=== PATIENT | male | born 1980 | race Caucasian/White ===

== ENCOUNTER 2016-11-30 09:30 | Emergency (ER) | payer MEDICARE, MEDICAID ==
[2016-11-30 09:50] VITALS: BP 96/91
--- NOTE | 2016-11-30 10:00 | UC ---
Skin Complaint HPI - HPI Summary HPI Summary: CARE PROVIDERS AT [facility] NOTICED ORAL SORES THIS MORNING. NO KNOWN FEVER OR OTHER SYMPTOMS. PT HAS LIMITED VERBAL AND COGNITIVE ABILITIES. STATES HIS MOUTH HURTS BUT NO FURTHER DETAILS. 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 [facility] Onset/Duration: Sudden Onset, Lasting Hours, Still Present Timing: Constant Onset Severity: Moderate Current Severity: Moderate Pain Scale Used: UNABLE DUE TO PT STATUS Location: Other - MOUTH/CHIN Character: Pain, Redness, Raised Aggravating: Touch Alleviating: Nothing Associated Signs & Symptoms: Positive: Negative - Allergy/Home Medications Allergies/Adverse Reactions: Allergies Allergy/AdvReac Type Severity Reaction Status Date / Time No Known Allergies Allergy Verified 11/30/16 09:51 Review of Systems Constitutional: Negative Skin: Other - ULCERATIONS ORAL MUCOSA Respiratory: Negative Cardiovascular: Negative Gastrointestinal: Negative All Other Systems Reviewed And Are Negative: Yes PMH/Surg Hx/FS Hx/Imm Hx - Additional Past Medical History Additional PMH: ADHD, DEVELOPMENTAL DELAY Endocrine History Of: Denies: Diabetes, Thyroid Disease Cardiovascular History Of: Reports: Hypertension Denies: Cardiac Disorders Respiratory History Of: Denies: COPD, Asthma GI/ History Of: Denies: Ulcer Psychological History Of: Reports: Depression - Surgical History Surgical History: Yes Surgery Procedure, Year, and Place: left foot - Family History Known Family History: Positive: Unknown - unattainable due to mental disability Family History: patient is unable to provide any past medical history due to his mental disability. - Social History Alcohol Use: None Substance Use Type: None Smoking Status (MU): Never Smoked Tobacco Physical Exam Triage Information Reviewed: Yes Appearance: Well-Appearing, No Pain Distress, Well-Nourished Vital Signs: Initial Vital Signs Temp 96 F 11/30/16 09:37 Pulse 92 11/30/16 09:37 Resp 18 11/30/16 09:37 BP 96/91 11/30/16 09:37 Pulse Ox 98 11/30/16 09:37 Vital Signs Reviewed: Yes Eyes: Positive: Conjunctiva Clear ENT: Positive: Hearing grossly normal Neck: Positive: Supple Respiratory: Positive: No respiratory distress, No accessory muscle use Cardiovascular: Positive: Pulses Normal Abdomen Description: Positive: Soft Musculoskeletal: Positive: No Edema Neurological: Positive: Alert Psychological: Positive: Other: - BEHAVIOR AT BASELINE Skin: Positive: significant lesion(s) - MULTIPLE SCATTERED WHITE BASED LESIONS ON BUCCAL/ORAL MUCOSA MEASURING ABOUT 5MM IN DIAMETER. CRUSTED 1CM LESION CHIN. Course/Dx - Course Course Of Treatment: SWAB SENT FOR HERPES CULTURE. VALTREX GIVEN - Differential Diagnoses - Skin Complaint Differential Diagnoses: Other - APHTHOUS ULCERS - Diagnoses Provider Diagnoses: HERPES LABIALIS Discharge - Discharge Plan Condition: Stable Disposition: HOME Prescriptions: ValACYclovir (*) [Valtrex 1 GM(*)] 2 gm PO BID #4 tab Patient Education Materials: Oral Herpes Simplex Virus Infections (ED) Referrals: Juan J FAJARDO,Steven Mcmullen [Primary Care Provider] - If Needed Additional Instructions: SPECIMEN SENT FOR VIRAL CULTURE. PLEASE TAKE MEDICINE PRESCRIBED 2 PILLS THIS MORNING AND 2 PILLS TONIGHT. FOLLOW-UP WITH YOUR PCP IF NEEDED.
== END 2016-11-30 10:20 | disposition home or self-care (01) ==
LOC: UCEAST 09:30
DX: B00.1 Herpesviral vesicular dermatitis (principal)
CPT/HCPCS: 87529; 99212; G0463

== ENCOUNTER 2016-12-21 14:30 | Emergency (ER) | payer MEDICARE, MEDICAID ==
[2016-12-21 14:46] VITALS: BP 134/89
[2016-12-21 15:25] LABS: Hematocrit 36 % (42-52); Hemoglobin 11.7 g/dl (14.0-18.0); Mean Corpuscular HGB Conc 32 g/dl (31-36); Mean Corpuscular Hemoglobin 26 pg (27-31); Mean Corpuscular Volume 81 fL (80-94); Mean Platelet Volume 7 um3 (7.4-10.4); Red Blood Count 4.51 10^6/ul (4.0-5.4); Red Cell Distribution Width 14 % (10.5-15); White Blood Count 13.1 10^3/ul (3.5-10.8)
[2016-12-21 15:41] LABS: ALT 44 U/L (7-52); AST 84 U/L (13-39); Albumin 3.9 g/dL (3.2-5.2); Alkaline Phosphatase 51 U/L (34-104); Anion Gap 8 mmol/L (2-11); Blood Urea Nitrogen 17 mg/dL (6-24); CO2 Carbon Dioxide 25 mmol/L (22-32); Calcium 9.2 mg/dL (8.6-10.3); Chloride 101 mmol/L (101-111); EGFR African American 139.5 (>60); EGFR Non-African American 108.4 (>60); Globulin 2.8 g/dL (2-4); Glucose 101 mg/dL (70-100); Potassium 3.8 mmol/L (3.5-5.0); Sodium 134 mmol/L (133-145); Total Protein 6.7 g/dL (6.4-8.9)
[2016-12-21 16:07] LABS: Acetaminophen < 15 mcg/mL; Alcohol < 10 mg/dL (<10); Salicylate < 2.50 mg/dL (<30)
[2016-12-21 16:15] LABS: TSH (Thyroid Stimulating Horm) 0.21 mcIU/mL (0.34-5.60)
[2016-12-21] MEDS ORDERED: NS 0.9% 1000 ML* 1,000 ML IV ONE (16:52)
--- NOTE | 2016-12-21 18:35 | RAD ---
INDICATION: Decreased appetite COMPARISON: None TECHNIQUE: Supine and sitting views of the abdomen were obtained. FINDINGS: The small bowel and colon appear nondistended. No free intraperitoneal air is seen. No grossly abnormal or pathologic appearing calcifications are noted. There is mild dextroconvex curvature of the lower thoracic and upper lumbar spine. IMPRESSION: No radiographically apparent acute abnormality of the abdomen.
--- NOTE | 2016-12-21 18:37 | RAD ---
INDICATION: Decreased appetite COMPARISON: Similar chest x-ray dated November 04, 2016 TECHNIQUE: PA and lateral views of the chest were obtained. FINDINGS: Evaluation of the lungs is limited due to poor respiratory effort. The heart and mediastinum are normal in size and contour. The lungs are grossly clear. There is no evidence of large pleural effusion. There is no radiographic evidence of free air beneath the diaphragm IMPRESSION: No radiographic evidence of acute cardiopulmonary disease.
[2016-12-21 18:49] LABS: Urine Bacteria Absent (Absent); Urine Bilirubin Negative (Negative); Urine Glucose 1+(50 mg/dL) (Negative); Urine Nitrite Negative (Negative)
--- NOTE | 2016-12-21 19:07 | ED ---
Victoria Bob Michael, scribed for Ranjit Alvarenga MD on 12/21/16 at 1501 . Altered Mental Status - HPI Summary HPI Summary: 36 y/o male was BIBA to the ED from a residential due to the fact that the pt has refused to eat for the past 3 days. The facility has request that the pt has a medical evaluation because he has not eaten in the last 3 days. In the ED , he has asked for fluids and is currently drinking soda. The PMHx is significant for MR. The HPI was limited due to AMS. Level 5 Caveat - History Of Current Complaint Chief Complaint: EDGeneral Stated Complaint: MHE Time Seen by Provider: 12/21/16 14:49 Hx Obtained From: EMS, Medical Records Hx From Patient Unobtainable Due To: Other - MR-level 5 caveat Timing: Constant, Lasting Days Severity Initially: Mild Severity Currently: Mild Aggravating Factor(s): Unknown Alleviating Factor(s): Nothing Associated Signs And Symptoms: Negative: Negative - refusal to eat for 3 days, Fever - Allergies/Home Medications Allergies/Adverse Reactions: Allergies Allergy/AdvReac Type Severity Reaction Status Date / Time No Known Allergies Allergy Verified 11/30/16 09:51 PMH/Surg Hx/FS Hx/Imm Hx Endocrine/Hematology History: Denies: Hx Diabetes, Hx Thyroid Disease Cardiovascular History: Reports: Hx Hypertension Respiratory History: Denies: Hx Asthma, Hx Chronic Obstructive Pulmonary Disease (COPD) GI History: Denies: Hx Ulcer Neurological History: Reports: Hx Developmental Delay, Other Neuro Impairments/ Disorders - moderate mental delay Psychiatric History: Reports: Hx Attention Deficit Hyperactivity Disorder, Hx Depression - Surgical History Surgery Procedure, Year, and Place: left foot - Immunization History Date of Tetanus Vaccine: up to date per pt caregiver Infectious Disease History: No Infectious Disease History: Denies: Hx Clostridium Difficile, Hx Hepatitis, Hx Human Immunodeficiency Virus (HIV), Hx of Known/Suspected MRSA, Hx Shingles, Hx Tuberculosis, History Other Infectious Disease, Traveled Outside the [place] in Last 30 Days - Family History Known Family History: Positive: Unknown - unattainable due to mental disability Family History: patient is unable to provide any past medical history due to his mental disability. - Social History Occupation: Disabled Lives: Senior Care Alcohol Use: None Substance Use Type: Reports: None Smoking Status (MU): Never Smoked Tobacco Review of Systems - ROS Summary Review of Systems Summary: Limited due to MR and level 5 caveat Negative: Fever Positive: Other - refusal to eat for 3 days All Other Systems Reviewed And Are Negative: No Physical Exam - Summary Physical Exam Summary: Vital signs: reviewed General: Patient is comfortable lying in stretcher. He has hx of MR and he talks very loud. HEENT: within normal limits Lungs: CTA B/L CVS: S1 & S2 present. No murmurs appreciated. ABDOMEN: Soft, non-tender. No signs of distention. No rebound no guarding, and no masses palpated. Bowel sounds are normal. EXTREMITIES: FROM in all major joints, no edema, no cyanosis or clubbing. NEURO: Alert and oriented x 3. No acute neurological deficits. Speech is normal and follows commands. SKIN: Dry and warm Triage Information Reviewed: Yes Vital Signs On Initial Exam: Initial Vitals Temp Pulse Resp BP Pulse Ox 98.0 F 117 20 134/89 100 12/21/16 14:42 12/21/16 14:42 12/21/16 14:42 12/21/16 14:42 12/21/16 14:42 Vital Signs Reviewed: Yes - Henry Coma Scale Coma Scale Total: 15 Diagnostics - Vital Signs Vital Signs Temp Pulse Resp BP Pulse Ox 12/21/16 14:42 98.0 F 117 20 134/89 100 - Laboratory Lab Results: Lab Results 12/21/16 12/21/16 Range/Units 15:15 15:15 WBC 13.1 H (3.5-10.8) 10^3/ul RBC 4.51 (4.0-5.4) 10^6/ul Hgb 11.7 L (14.0-18.0) g/dl Hct 36 L (42-52) % MCV 81 (80-94) fL MCH 26 L (27-31) pg MCHC 32 (31-36) g/dl RDW 14 (10.5-15) % Plt Count 366 (150-450) 10^3/ul MPV 7 L (7.4-10.4) um3 Neut % (Auto) 81.8 (38-83) % Lymph % (Auto) 8.5 L (25-47) % Rincon % (Auto) 8.6 (1-9) % Eos % (Auto) 0.1 (0-6) % Baso % (Auto) 1.0 (0-2) % Absolute Neuts (auto) 10.7 H (1.5-7.7) 10^3/ul Absolute Lymphs (auto) 1.1 (1.0-4.8) 10^3/ul Absolute Monos (auto) 1.1 H (0-0.8) 10^3/ul Absolute Eos (auto) 0 (0-0.6) 10^3/ul Absolute Basos (auto) 0.1 (0-0.2) 10^3/ul Absolute Nucleated RBC 0 10^3/ul Nucleated RBC % 0 Sodium 134 (133-145) mmol/L Potassium 3.8 (3.5-5.0) mmol/L Chloride 101 (101-111) mmol/L Carbon Dioxide 25 (22-32) mmol/L Anion Gap 8 (2-11) mmol/L BUN 17 (6-24) mg/dL Creatinine 0.81 (0.67-1.17) mg/dL Est GFR ( Amer) 139.5 (>60) Est GFR (Non-Af Amer) 108.4 (>60) BUN/Creatinine Ratio 21.0 H (8-20) Glucose 101 H (70-100) mg/dL Calcium 9.2 (8.6-10.3) mg/dL Total Bilirubin 0.60 (0.2-1.0) mg/dL AST 84 H (13-39) U/L ALT 44 (7-52) U/L Alkaline Phosphatase 51 (34-104) U/L Total Protein 6.7 (6.4-8.9) g/dL Albumin 3.9 (3.2-5.2) g/dL Globulin 2.8 (2-4) g/dL Albumin/Globulin Ratio 1.4 (1-3) TSH 0.21 L (0.34-5.60) mcIU/mL Salicylates < 2.50 (<30) mg/dL Acetaminophen < 15 mcg/mL Serum Alcohol < 10 (<10) mg/dL Result Diagrams: 12/21/16 15:15 12/21/16 15:15 Lab Statement: Any lab studies that have been ordered have been reviewed, and results considered in the medical decision making process. - Radiology ABD XR Xray Interpretation: No Acute Changes - IMPRESSION: No radiographically apparent acute abnormality of the abd Radiology Interpretation Completed By: Radiologist CXR Xray Interpretation: No Acute Changes Radiology Interpretation Completed By: Radiologist - IMPRESSION: No radiographic evidence of acute cardiopulmonary dz. Altered Mental Statu Course/Dx - Course Assessment/Plan: 36 y/o male was BIBA to the ED from a residential due to the fact that the pt has refused to eat for the past 3 days. The facility has request that the pt has a medical evaluation because he has not eaten in the last 3 days. In the ED, he has asked for fluids and is currently drinking soda. The PMHx is significant for MR. Blood work wnl except for slight increase in WBCs of 13.1 w/o bands, glucose 101. UA was contaminated therefore we will send for urine cultures. PMD will f/u cultures. CXR: No acute cardiopulmonary pathology. Abdominal X ray impression: No radiographic abnormality seen. MHE evaluation unable to perform since MHE butt welder Liza Han was unable to perform since patient has no capacity. Patient will be discharged home w f/u pf PMD. Patient is to return to the ED if he develops fever, nausea or vomiting or pain. Patient is hemodynamically stable and at his base line. - Diagnoses Differential Diagnosis/HQI/PQRI: Other - Dehydration, Discharge Diagnoses: Decreased appetite - Provider Notifications Discussed Care Of Patient With: Spoke with Nessa Han, unable to do MHE due to pt 's lack of capacity due to MR Time Discussed With Above Provider: 18:52 Discharge - Discharge Plan Condition: Stable Disposition: HOME Patient Education Materials: Failure to Thrive (ED) The documentation as recorded by the Victoria shepard Michael accurately reflects the service I personally performed and the decisions made by , Ranjit Alvarenga MD.
[2016-12-21 19:36] LABS: Benzodiazepine Urine Screen None Detected (None Detect)
== END 2016-12-21 19:30 | disposition home or self-care (01) ==
LOC: ED 14:30
DX: R63.0 Anorexia (principal)
CPT/HCPCS: 36415; 71020; 74020; 80053; 80307; 80320; 80329; 81003; 81015; 84443; 85025; 87086; 99282; G0480

== ENCOUNTER 2016-12-25 16:29 | Emergency (ER) | payer MEDICARE, MEDICAID ==
[2016-12-25] MEDS ORDERED: Haloperidol INJ IV/IM* 5 MG/ML AMP IM ONE (16:44)
[2016-12-25] MEDS ORDERED: LORazepam INJ* 2 MG/ML 1 ML VIAL IV PUSH ONE (16:44)
[2016-12-25] MEDS ORDERED: diPHENhydraMINE IV* 50 MG/ML 1 ml VIAL (BENADRYL) IM ONE (16:44)
[2016-12-25] MEDS ORDERED: LORazepam INJ* 2 MG/ML 1 ML VIAL IM ONE (17:26)
--- NOTE | 2016-12-25 17:50 | RAD ---
INDICATION: Altered mental status COMPARISON: None TECHNIQUE: Noncontrast axial source images were acquired from the skull base to the vertex. The examination is limited due to motion artifact. Images were repeated. FINDINGS: Ventricles/sulci: The ventricles and cisterns are normal in size and configuration for age. Brain parenchyma: There is no focal parenchymal finding, evidence of intracranial mass, or intracranial mass effect. Intracranial hemorrhage:None. Extra-axial spaces: There are no abnormal extra axial fluid collections or evidence of extra-axial mass. Calvarium: There is no calvarial fracture or other calvarial abnormality. Scalp: There is no evidence of scalp or extracalvarial soft tissue abnormality. Paranasal sinuses/mastoid: There is extensive paranasal sinus disease with near complete opacification of the visualized ethmoid and maxillary air cells. There is sphenoid sinus disease with an air-fluid level. There is frontal sinus disease. There may be nasal polyposis. Suggest follow-up CT imaging of the paranasal sinuses and/or ENT referral as indicated if this represents a previously been diagnosed finding. Other: None. IMPRESSION: No acute intracranial findings. Acute and chronic sinusitis with possible nasal polyps (see above).
[2016-12-25 19:35] LABS: Hematocrit 32 % (42-52); Hemoglobin 10.8 g/dl (14.0-18.0); Mean Corpuscular HGB Conc 34 g/dl (31-36); Mean Corpuscular Hemoglobin 27 pg (27-31); Mean Corpuscular Volume 80 fL (80-94); Mean Platelet Volume 7 um3 (7.4-10.4); Red Blood Count 4.05 10^6/ul (4.0-5.4); Red Cell Distribution Width 14 % (10.5-15); White Blood Count 8.4 10^3/ul (3.5-10.8)
[2016-12-25 19:52] LABS: Albumin 3.5 g/dL (3.2-5.2); Calcium 9.1 mg/dL (8.6-10.3); EGFR African American 189.9 (>60); EGFR Non-African American 147.6 (>60); Globulin 2.7 g/dL (2-4); Potassium 3.9 mmol/L (3.5-5.0); Total Bilirubin 0.4 mg/dL (0.2-1.0); Total Protein 6.2 g/dL (6.4-8.9)
[2016-12-25] MEDS ORDERED: NS 0.9% 1000 ML* 2,000 ML IV ONE (21:30)
[2016-12-26 08:30] VITALS: BP 123/76
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
== END 2016-12-26 08:15 | disposition home or self-care (01) ==
LOC: ED 16:29
DX: F39 Unspecified mood [affective] disorder (principal); J32.9 Chronic sinusitis, unspecified; R63.1 Polydipsia; I10 Essential (primary) hypertension; R62.50 Unspecified lack of expected normal physiological development in childhood; F90.9 Attention-deficit hyperactivity disorder, unspecified type
CPT/HCPCS: 36415; 70450; 80053; 83605; 85025; 96360; 96372; 96374; 96375; 99283; J1200; J1630; J2060

== ENCOUNTER 2017-04-08 06:24 | Emergency (ER) | payer MEDICARE, MEDICAID ==
[2017-04-08 08:25] VITALS: BP 126/59
--- NOTE | 2017-04-08 09:35 | ED ---
Gary Bob Billy, scribed for Ranjit Alvarenga MD on 04/08/17 at 0729 . GI/ HPI - HPI Summary HPI Summary: Patient is a 36 year-old male coming to [facility] for evaluation of a choking episode this morning. History is provided by aide due to the patient's history of MR. She reports that he was eating a bagel this morning when she saw a piece in his mouth, he "took a big breath and turned purple." She administered three cycles of Heimlech maneuver and back blows, heard the patient making noise and coughing, and saw the piece of the bagel come up. She also reports that the patient has had a history of forced vomiting. The aide brought the patient to the ED for further evaluation and to be sure that there no longer remains any remnants of the bagel or any other foreign body. - History of Current Complaint Chief Complaint: EDForeignBodyEsophag Time Seen by Provider: 04/08/17 07:15 Stated Complaint: CHOKED ON FOOD Hx Obtained From: Family/Horseshoer Hx From Patient Unobtainable Due To: Other - MR Onset/Duration: Started Hours Ago Timing: Lasting Minutes Severity: Moderate Current Severity: None Associated Signs and Symptoms: Positive: Negative Foreign Body: Esophageal Aggravating Factor(s): Nothing Alleviating Factor(s): Heimlich Maneuver - Allergy/Home Medications Allergies/Adverse Reactions: Allergies Allergy/AdvReac Type Severity Reaction Status Date / Time No Known Allergies Allergy Verified 11/30/16 09:51 PMH/Surg Hx/FS Hx/Imm Hx Endocrine/Hematology History: Denies: Hx Diabetes, Hx Thyroid Disease Cardiovascular History: Reports: Hx Hypertension Respiratory History: Denies: Hx Asthma, Hx Chronic Obstructive Pulmonary Disease (COPD) GI History: Denies: Hx Ulcer Neurological History: Reports: Hx Developmental Delay, Other Neuro Impairments/ Disorders - moderate mental delay Psychiatric History: Reports: Hx Attention Deficit Hyperactivity Disorder, Hx Depression, Hx of Violent Episodes Against Others - Surgical History Surgery Procedure, Year, and Place: left foot - Immunization History Date of Tetanus Vaccine: up to date per pt caregiver Infectious Disease History: No Infectious Disease History: Denies: Hx Clostridium Difficile, Hx Hepatitis, Hx Human Immunodeficiency Virus (HIV), Hx of Known/Suspected MRSA, Hx Shingles, Hx Tuberculosis, History Other Infectious Disease, Traveled Outside the [place] in Last 30 Days - Family History Family History: Patient is unable to provide any family history due to his mental disability. - Social History Lives: Longterm Alcohol Use: None Substance Use Type: Reports: None Hx Tobacco Use: No Smoking Status (MU): Never Smoked Tobacco Review of Systems Negative: Fever Gastrointestinal: Other - Choking on bagel Neurological: Other - History MR All Other Systems Reviewed And Are Negative: Yes Physical Exam - Summary Physical Exam Summary: VITAL SIGNS: Reviewed. GENERAL: Patient is a well-nourished male with MR who is sitting comfortable in the stretcher. The patient is speaking and shouting, there are no signs of choking. No signs of foreign bodies in the oropharynx or throat. Patient is not in any acute respiratory distress. HEAD AND FACE: No signs of trauma. No ecchymosis, hematomas or skull depressions. No sinus tenderness. EYES: PERRLA, EOMI x 2, No injected conjunctiva, no nystagmus. EARS: Hearing grossly intact. Ear canals and tympanic membranes are within normal limits. MOUTH: Oropharynx within normal limits. NECK: Supple, trachea is midline, no adenopathy, no JVD, no carotid bruit, no c- spine tenderness, neck with full ROM. CHEST: Symmetric, no tenderness at palpation LUNGS: Clear to auscultation bilaterally. No wheezing or crackles. CVS: Regular rate and rhythm, S1 and S2 present, no murmurs or gallops appreciated. ABDOMEN: Soft, non-tender. No signs of distention. No rebound no guarding, and no masses palpated. Bowel sounds are normal. EXTREMITIES: FROM in all major joints, no edema, no cyanosis or clubbing. NEURO: Alert and at baseline. No acute neurological deficits. Speech is normal and follows commands. SKIN: Dry and warm Triage Information Reviewed: Yes Vital Signs On Initial Exam: Initial Vitals Temp Pulse Resp BP Pulse Ox 97.1 F 92 16 126/88 99 04/08/17 07:18 04/08/17 07:18 04/08/17 07:18 04/08/17 07:18 04/08/17 07:18 Vital Signs Reviewed: Yes - Henry Coma Scale Coma Scale Total: 15 Diagnostics - Vital Signs Vital Signs Temp Pulse Resp BP Pulse Ox 04/08/17 07:18 97.1 F 92 16 126/88 99 - Laboratory Lab Statement: Any lab studies that have been ordered have been reviewed, and results considered in the medical decision making process. GIGU Course/Dx - Course Assessment/Plan: Patient is a 36 year-old male coming to [facility] for evaluation of a choking episode this morning. History is provided by aide due to the patient's history of MR. She reports that he was eating a bagel this morning when she saw a piece in his mouth, he "took a big breath and turned purple." She administered three cycles of Heimlech maneuver and back blows, heard the patient making noise and coughing, and saw the piece of the bagel come up. She also reports that the patient has had a history of forced vomiting. The aide brought the patient to the ED for further evaluation and to be sure that there no longer remains any remnants of the bagel or any other foreign body. The patient is able to swallow water without cough or vomiting. He is feeling better. Therefore, he will be discharged home to follow up with PCP. He is hemodynamically stable, alert and at his baseline. - Diagnoses Differential Diagnoses - Male: Other - Chocking episode Provider Diagnoses: Choking Discharge - Discharge Plan Condition: Stable Disposition: HOME Patient Education Materials: Esophageal Foreign Body (ED), Performing the Heimlich Maneuver (ED), Foreign Body in Pharynx (ED) Referrals: Steven Arita MD [Primary Care Provider] - The documentation as recorded by the Gary shepard Billy accurately reflects the service I personally performed and the decisions made by , Ranjit Alvarenga MD.
== END 2017-04-08 08:28 | disposition home or self-care (01) ==
LOC: ED 06:24
DX: R09.89 Other specified symptoms and signs involving the circulatory and respiratory systems (principal); R62.50 Unspecified lack of expected normal physiological development in childhood; I10 Essential (primary) hypertension
CPT/HCPCS: 99283

== ENCOUNTER 2017-07-08 16:48 | Emergency (ER) | payer MEDICARE, MEDICAID ==
--- NOTE | 2017-07-08 17:01 | UC ---
UC Dental HPI - HPI Summary HPI Summary: 36 YEAR OLD MALE PRESENTS WITH RIGHT LOWER MOLAR ABSCESS. - History of Current Complaint Chief Complaint: UCDentalProblem Stated Complaint: dental pain Time Seen by Provider: 07/08/17 16:59 Hx Obtained From: Patient Onset/Duration: Sudden Onset Severity: Moderate Pain Scale Used: 0-10 Numeric - 5 - Allergies/Home Medications Allergies/Adverse Reactions: Allergies Allergy/AdvReac Type Severity Reaction Status Date / Time No Known Allergies Allergy Verified 07/08/17 16:54 PMH/Surg Hx/FS Hx/Imm Hx Previously Healthy: Yes - Surgical History Surgical History: Yes Surgery Procedure, Year, and Place: left foot - Family History Known Family History: Positive: Unknown - unattainable due to mental disability Family History: Patient is unable to provide any family history due to his mental disability. - Social History Alcohol Use: None Substance Use Type: None Smoking Status (MU): Never Smoked Tobacco Review of Systems Constitutional: Negative Skin: Negative Eyes: Negative ENT: Dental Pain Respiratory: Negative Cardiovascular: Negative Gastrointestinal: Negative Genitourinary: Negative Motor: Negative Neurovascular: Negative Musculoskeletal: Negative Neurological: Negative Psychological: Negative All Other Systems Reviewed And Are Negative: Yes Physical Exam Triage Information Reviewed: Yes Appearance: Well-Appearing Vital Signs Reviewed: Yes Eye Exam: Normal Dental: Positive: Abscess @ - RIGHT LOWER MOLAR Neck exam: Normal Neck: Positive: 1 Respiratory Exam: Normal Cardiovascular Exam: Normal Abdominal Exam: Normal Musculoskeletal Exam: Normal Neurological Exam: Normal Psychological Exam: Normal Skin Exam: Normal Dental Complaint Course/Dx - Differential Dx/Diagnosis Provider Diagnoses: DENTAL ABSCESS Discharge - Discharge Plan Condition: Stable Disposition: HOME Prescriptions: Chlorhexidine MW 0.12% 473ML* [Peridex Mouth Wash 0.12%*] 15 ml MT TID PC #1 btl Naproxen [Naprosyn 500 mg] 500 mg PO BID PRN #30 tab PRN Reason: Pain Penicillin VK 500 MG TAB(NF) [Penicillin VK 500 mg Tab] 500 mg PO QID #28 tab Patient Education Materials: Dental Abscess (ED) Referrals: Juan J FAJARDO,Steven Mcmullen [Primary Care Provider] -
[2017-07-08 17:06] VITALS: BP 100/74
== END 2017-07-08 17:15 | disposition home or self-care (01) ==
LOC: UCEAST 16:48
DX: K04.7 Periapical abscess without sinus (principal)
CPT/HCPCS: 99212; G0463

== ENCOUNTER 2017-10-02 13:16 | Emergency (ER) | payer MEDICARE, MEDICAID ==
[2017-10-02 13:27] VITALS: BP 122/79
--- NOTE | 2017-10-02 14:19 | UC ---
Respiratory Complaint HPI - HPI Summary HPI Summary: returned to [facility] after a home visit. Per the staff member -mother wanted him to be checked because he was coughing so hard he was throwing up - History of Current Complaint Chief Complaint: UCRespiratory Stated Complaint: COUGH Time Seen by Provider: 10/02/17 14:17 Hx Obtained From: Patient, Family/Organic Preparation Technician Hx From Patient Unobtainable Due To: Other - MR Onset/Duration: Gradual Onset, Lasting Weeks, Still Present Timing: Constant Severity Initially: Moderate Severity Currently: Moderate Character: Cough: Nonproductive Aggravating Factors: Nothing Alleviating Factors: Spontaneous Resolution Associated Signs And Symptoms: Positive: Negative, Fever - Allergies/Home Medications Allergies/Adverse Reactions: Allergies Allergy/AdvReac Type Severity Reaction Status Date / Time No Known Allergies Allergy Verified 07/08/17 16:54 PMH/Surg Hx/FS Hx/Imm Hx Previously Healthy: No - MR/ DD Cardiovascular History: Hypertension Psychological History: Anxiety, Depression - Surgical History Surgical History: Yes Surgery Procedure, Year, and Place: left foot - Family History Known Family History: Positive: Unknown - unattainable due to mental disability Family History: Patient is unable to provide any family history due to his mental disability. - Social History Occupation: Disabled Lives: [place] Alcohol Use: None Substance Use Type: None Smoking Status (MU): Never Smoked Tobacco Review of Systems Constitutional: Negative Skin: Negative Eyes: Negative ENT: Negative Respiratory: Cough Cardiovascular: Negative Gastrointestinal: Negative Genitourinary: Negative Motor: Negative Neurovascular: Negative Musculoskeletal: Negative Neurological: Negative Psychological: Negative Is Patient Immunocompromised?: No All Other Systems Reviewed And Are Negative: Yes Physical Exam Triage Information Reviewed: Yes Appearance: No Pain Distress, Ill-Appearing - Chronic illness, Obese Vital Signs: Initial Vital Signs Temp 96.9 F 10/02/17 13:24 Pulse 84 10/02/17 13:24 Resp 18 10/02/17 13:24 BP 122/79 10/02/17 13:24 Pulse Ox 99 10/02/17 13:24 Vital Signs Reviewed: Yes Eye Exam: Normal Eyes: Positive: Conjunctiva Clear ENT Exam: Normal ENT: Positive: Normal ENT inspection, Hearing grossly normal, Pharynx normal, Uvula midline. Negative: Nasal congestion, Nasal drainage, TMs normal, Tonsillar swelling, Tonsillar exudate, Trismus, Muffled voice, Hoarse voice, Sinus tenderness Dental Exam: Normal Neck exam: Normal Neck: Positive: Supple, Nontender, No Lymphadenopathy Respiratory Exam: Normal Respiratory: Positive: Chest non-tender, Lungs clear, No respiratory distress, No accessory muscle use, Wheezing - right upper Cardiovascular Exam: Normal Cardiovascular: Positive: RRR, No Murmur, Pulses Normal, Brisk Capillary Refill Abdominal Exam: Normal Musculoskeletal Exam: Normal Musculoskeletal: Positive: Strength Intact, ROM Intact, No Edema Neurological Exam: Normal Neurological: Positive: Alert, Muscle Tone Normal Psychological Exam: Normal Psychological: Positive: Normal Response To Family Skin Exam: Normal UC Diagnostic Evaluation - Laboratory O2 Sat by Pulse Oximetry: 99 - Radiology Xray Interpretation: No Acute Changes Radiology Interpretation Completed By: ED Physician, Radiologist Respiratory Course/Dx - Course Course Of Treatment: increase fluids, follow with lonnie Contreras studies pending - Differential Dx/Diagnosis Provider Diagnoses: Chronic Cough Discharge - Discharge Plan Condition: Stable Disposition: HOME Patient Education Materials: Chronic Cough (ED) Referrals: Juan J FAJARDO,Steven Mcmullen [Primary Care Provider] - 5 Days
--- NOTE | 2017-10-02 15:00 | RAD ---
HISTORY: Cough and wheezing COMPARISONS: January 18, 2017 VIEWS: 4: Frontal dual-energy and lateral views of the chest. FINDINGS: CARDIOMEDIASTINAL SILHOUETTE: The cardiomediastinal silhouette is normal. JESUS: The jesus are normal. PLEURA: The costophrenic angles are sharp. No pleural abnormalities are noted. LUNG PARENCHYMA: The lungs are clear. ABDOMEN: The upper abdomen is clear. There is no subphrenic gas. BONES AND SOFT TISSUES: No bone or soft tissue abnormalities are noted. OTHER: None. IMPRESSION: NO ACTIVE CARDIOPULMONARY DISEASE.
== END 2017-10-02 15:35 | disposition home or self-care (01) ==
LOC: UCEAST 13:16
DX: R05 Cough (principal)
CPT/HCPCS: 71020; 87798; 99212; G0463

== ENCOUNTER 2018-01-28 12:41 | Emergency (ER) | payer MEDICARE, MEDICAID ==
[2018-01-28 13:08] VITALS: BP 125/78
--- NOTE | 2018-01-28 13:45 | UC ---
Skin Complaint HPI - HPI Summary HPI Summary: Patient presents to be UC from [facility] with aid with chief complaint of right distal tip ring finger erythema and swelling. The aide states prior to coming to the , the patient was able to "pop" the area with pus drainage. Unknown injury. Full range of motion without pain. Patient denies any pain at this time. The area is cleaned well on arrival. No known allergies. Denies any fevers, sweats, chills. Has been otherwise feeling well. - History of Current Complaint Chief Complaint: UCSkin Time Seen by Provider: 01/28/18 12:48 Stated Complaint: FINGER INJURY Hx Obtained From: Patient Onset/Duration: Sudden Onset Skin Exposure Onset/Duration: Hours Ago Timing: Constant Onset Severity: Mild Pain Intensity: 3 Pain Scale Used: 0-10 Numeric Character: Pain Aggravating Factor(s): Nothing Alleviating Factor(s): Nothing Associated Signs & Symptoms: Positive: Negative Related History: Trauma - Allergy/Home Medications Allergies/Adverse Reactions: Allergies Allergy/AdvReac Type Severity Reaction Status Date / Time No Known Allergies Allergy Verified 01/28/18 13:10 Home Medications: Home Medications Clotrimazole 1% TOPICAL (NF) [Lotrimin 1% TOPICAL (NF)] 1 applic TOPICAL BID PRN 01/28/18 [History Confirmed 01/28/18] Haloperidol TAB* [Haldol TAB*] 7.5 mg PO DAILY 01/28/18 [History Confirmed 01/28] Lisinopril TAB* [Prinivil TAB*] 10 mg PO DAILY 01/28/18 [History Confirmed 01/28] Moisturizing CREAM* [Hydrocerin Cream*] 1 applic TOPICAL BID PRN 01/28/18 [ History Confirmed 01/28/18] Review of Systems Constitutional: Negative Skin: Other - Paronychia to the right fourth finger Eyes: Negative ENT: Negative Cardiovascular: Negative Gastrointestinal: Negative Motor: Negative Neurovascular: Negative Neurological: Negative Psychological: Negative Is Patient Immunocompromised?: No All Other Systems Reviewed And Are Negative: Yes PMH/Surg Hx/FS Hx/Imm Hx Previously Healthy: Yes - Surgical History Surgical History: Yes Surgery Procedure, Year, and Place: left foot - Family History Known Family History: Positive: Unknown - unattainable due to mental disability Family History: Patient is unable to provide any family history due to his mental disability. - Social History Occupation: Unemployed Lives: Jail Alcohol Use: None Substance Use Type: None Smoking Status (MU): Never Smoked Tobacco Physical Exam Triage Information Reviewed: Yes Appearance: Well-Appearing, Well-Nourished Vital Signs: Initial Vital Signs Temp 97.2 F 01/28/18 13:02 Pulse 82 01/28/18 13:02 Resp 16 01/28/18 13:02 BP 125/78 01/28/18 13:02 Pulse Ox 98 01/28/18 13:02 Vital Signs Reviewed: Yes Eye Exam: Normal Eyes: Positive: Conjunctiva Clear Neck exam: Normal Neck: Positive: Supple Respiratory Exam: Normal Respiratory: Positive: Lungs clear Cardiovascular Exam: Normal Cardiovascular: Positive: RRR, No Murmur Musculoskeletal Exam: Normal Musculoskeletal: Positive: Strength Intact Psychological: Positive: Normal Response To Family, Age Appropriate Behavior Skin: Positive: Other - Paronychia to the right fourth finger Course/Dx - Course Course Of Treatment: Patient is evaluated for erythema and swelling to the right distal tip of the fourth finger surrounding the nail bed. No purulent drainage from the area. There is no signs of fluctuance. Prior to arrival to the , the aid states the area was drained by the patient by "poking at it". The area is appears to be a paronychia. However, due to the patient actively draining the area prior to arrival, there is no need for incision and drainage of the paronychia at this time. However, there is surrounding erythema and slight warmth, with no fluctuance. Due to possible deeper infection, I will cover with Keflex to cover Staphylococcus and Streptococcus. He will return to the if begins to develop a worsening paronychia which would need to be drained. No limitations with ROM. - Diagnoses Provider Diagnoses: Paronychia Discharge - Sign-Out/Discharge Documenting (check all that apply): Discharge - Discharge Plan Condition: Stable Disposition: HOME Prescriptions: Cephalexin CAP* [Keflex CAP*] 500 mg PO QID #20 cap MDD 4 Patient Education Materials: Paronychia (ED) Referrals: Juan J FAJARDO,Steven Mcmullen [Primary Care Provider] - Additional Instructions: Keflex 4 times daily 5 days Applying an antibiotic ointment such as bacitracin or Neosporin to the area will aid in healing If the area becomes worse or you notice purulent drainage from the area, return to the UC immediately - Billing Disposition and Condition Condition: STABLE Disposition: HOME
[2018-01-28] MEDS ORDERED: Bacitracin OINTMENT* 0.5% 0.5 oz TUBE TOPICAL SCH (21:00)
== END 2018-01-28 13:49 | disposition home or self-care (01) ==
LOC: UCEAST 12:41
DX: L03.011 Cellulitis of right finger (principal)
CPT/HCPCS: 99212; G0463

== ENCOUNTER 2018-03-16 12:55 | Emergency (ER) | payer MEDICARE, MEDICAID ==
[2018-03-16] MEDS ORDERED: NS 0.9% 1000 ML* 1,000 ML IV ONE (15:37)
--- NOTE | 2018-03-16 16:03 | RAD ---
Indication: Confusion. Single frontal view of the chest performed at 1555 hours was reviewed. Comparison is made with previous exam dated October 02, 2017. No mediastinal shift is noted. Heart is of normal size and configuration. Lung jose appear clear. IMPRESSION: NO ACTIVE CARDIOPULMONARY DISEASE IS NOTED.
--- NOTE | 2018-03-16 17:22 | RAD ---
Indication: Altered mental status. Seizure versus syncope. Comparison: December 25, 2016 Technique: Noncontrast CT vertex of skull through foramen magnum. Report: The sulci, ventricles, and basal cisterns are normal for age. Al matter white matter differentiation is preserved without evidence for edema. No intra or extra axial hemorrhage, mass, or fluid collection detected. Unremarkable visualized orbital contents. Unremarkable calvarium and skull base. Unremarkable scalp. Diffuse mucosal sinus disease with gross complete opacification of the visualized paranasal sinuses and fluid level in the LEFT sphenoid sinus. Clear mastoid air spaces. IMPRESSION: 1. Negative for acute intracranial process or traumatic brain injury. 2. Extensive chronic paranasal sinus mucosal disease. Potential acute sinusitis at the LEFT sphenoid sinus.
[2018-03-16 17:29] LABS: ABS Basophils 0.1 10^3/ul (0-0.2); ABS Eosinophils 0.6 10^3/ul (0-0.6); ABS Lymphocytes 2.1 10^3/ul (1.0-4.8); ABS Monocytes 0.9 10^3/ul (0-0.8); ABS Neutrophils 6.2 10^3/ul (1.5-7.7); ABS Nucleated RBC 0 10^3/ul; Eosinophil % 5.6 % (0-6); Hematocrit 36 % (42-52); Hemoglobin 12.1 g/dl (14.0-18.0); Lymphocyte % 21.6 % (25-47); Mean Corpuscular HGB Conc 34 g/dl (31-36); Mean Corpuscular Hemoglobin 27 pg (27-31); Mean Corpuscular Volume 80 fL (80-94); Mean Platelet Volume 6.7 um3 (7.4-10.4); Nucleated Red Blood Cells % 0; Platelet Count 377 10^3/ul (150-450); Red Blood Count 4.48 10^6/ul (4.0-5.4); Red Cell Distribution Width 15 % (10.5-15); White Blood Count 9.9 10^3/ul (3.5-10.8)
[2018-03-16 17:43] LABS: EGFR Non-African American 123.5 (>60)
[2018-03-16 18:08] LABS: INR 0.97 (0.77-1.02)
--- NOTE | 2018-03-16 19:03 | ED ---
Fernando Bob Stephanie, scribed for John Valles MD on 03/16/18 at 1543 . Head Injury - HPI Summary HPI Summary: The pt is a 37 y/o M presenting to the ED with c/o head trauma that occurred earlier today. The pt is accompanied by his day hab provider. He is a resident at [facility]. The pt was witnessed stiffening and falling over unresponsive for 30 seconds. He hit his head on the ground. The pt has no hx of seizure. - History Of Current Complaint Chief Complaint: EDSyncope Stated Complaint: POSSIBLE SYNCOPE Time Seen by Provider: 03/16/18 15:27 Hx Obtained From: Family/Life Manager - day horse stud manager Mechanism Of Injury: Other - fall from sitting position Onset/Duration: Started Hours Ago, Resolved Severity Currently: None Pain Intensity: 0 Pain Scale Used: 0-10 Numeric Associated Signs And Symptoms: LOC (Time In Secs./Mins/Hrs) - 30 seconds - Allergies/Home Medications Allergies/Adverse Reactions: Allergies Allergy/AdvReac Type Severity Reaction Status Date / Time No Known Allergies Allergy Verified 01/28/18 13:10 PMH/Surg Hx/FS Hx/Imm Hx Endocrine/Hematology History: Denies: Hx Diabetes, Hx Thyroid Disease Cardiovascular History: Reports: Hx Hypertension Respiratory History: Denies: Hx Asthma, Hx Chronic Obstructive Pulmonary Disease (COPD) GI History: Denies: Hx Ulcer Neurological History: Reports: Hx Developmental Delay, Other Neuro Impairments/ Disorders - moderate mental delay Psychiatric History: Reports: Hx Attention Deficit Hyperactivity Disorder, Hx Depression, Hx of Violent Episodes Against Others - Surgical History Surgery Procedure, Year, and Place: left foot - Immunization History Date of Tetanus Vaccine: up to date per pt caregiver Infectious Disease History: No Infectious Disease History: Denies: Hx Clostridium Difficile, Hx Hepatitis, Hx Human Immunodeficiency Virus (HIV), Hx of Known/Suspected MRSA, Hx Shingles, Hx Tuberculosis, History Other Infectious Disease, Traveled Outside the [place] in Last 30 Days - Family History Known Family History: Positive: Unknown - unattainable due to mental disability Family History: Patient is unable to provide any family history due to his mental disability. - Social History Occupation: Disabled Lives: Skilled Nursing Alcohol Use: None Hx Substance Use: No Substance Use Type: Reports: None Hx Tobacco Use: No Smoking Status (MU): Never Smoked Tobacco Have You Smoked in the Last Year: No Review of Systems Negative: Fever Negative: Slurred Speech All Other Systems Reviewed And Are Negative: Yes Physical Exam - Summary Physical Exam Summary: General: well-appearing, no pain distress Skin: warm, color reflects adequate perfusion, dry Head: normal Eyes: EOMI, SELAM ENT: normal Neck: supple, nontender Respiratory: CTA, breath sounds present Cardiovascular: RRR Abdomen: soft, nontender Bowel: present Musculoskeletal: normal, strength/ROM intact Neurological: normal, sensory/motor intact, A&O x3 Psychological: affect/mood appropriate Triage Information Reviewed: Yes Vital Signs On Initial Exam: Initial Vitals Temp Pulse Resp BP Pulse Ox 96.7 F 95 18 100/61 98 03/16/18 13:29 03/16/18 13:29 03/16/18 13:29 03/16/18 13:29 03/16/18 13:29 Vital Signs Reviewed: Yes Diagnostics - Vital Signs Vital Signs Temp Pulse Resp BP Pulse Ox 03/16/18 13:29 96.7 F 95 18 100/61 98 - Laboratory Lab Results: Lab Results 03/16/18 03/16/18 03/16/18 Range/Units 17:10 17:10 17:10 WBC 9.9 (3.5-10.8) 10^3/ul RBC 4.48 (4.0-5.4) 10^6/ul Hgb 12.1 L (14.0-18.0) g/dl Hct 36 L (42-52) % MCV 80 (80-94) fL MCH 27 (27-31) pg MCHC 34 (31-36) g/dl RDW 15 (10.5-15) % Plt Count 377 (150-450) 10^3/ul MPV 6.7 L (7.4-10.4) um3 Neut % (Auto) 63.1 (38-83) % Lymph % (Auto) 21.6 L (25-47) % Tyrrell % (Auto) 8.7 H (0-7) % Eos % (Auto) 5.6 (0-6) % Baso % (Auto) 1.0 (0-2) % Absolute Neuts (auto) 6.2 (1.5-7.7) 10^3/ul Absolute Lymphs (auto) 2.1 (1.0-4.8) 10^3/ul Absolute Monos (auto) 0.9 H (0-0.8) 10^3/ul Absolute Eos (auto) 0.6 (0-0.6) 10^3/ul Absolute Basos (auto) 0.1 (0-0.2) 10^3/ul Absolute Nucleated RBC 0 10^3/ul Nucleated RBC % 0 INR (Anticoag Therapy) 0.97 (0.77-1.02) APTT 29.9 (26.0-36.3) seconds Sodium 129 L (139-145) mmol/L Potassium 4.0 (3.5-5.0) mmol/L Chloride 93 L (101-111) mmol/L Carbon Dioxide 29 (22-32) mmol/L Anion Gap 7 (2-11) mmol/L BUN 11 (6-24) mg/dL Creatinine 0.72 (0.67-1.17) mg/dL Est GFR ( Amer) 158.9 (>60) Est GFR (Non-Af Amer) 123.5 (>60) BUN/Creatinine Ratio 15.3 (8-20) Glucose 98 (70-100) mg/dL Lactic Acid (0.5-2.0) mmol/L Calcium 9.3 (8.6-10.3) mg/dL Magnesium 2.1 (1.9-2.7) mg/dL Total Bilirubin 0.20 (0.2-1.0) mg/dL AST 19 (13-39) U/L ALT 18 (7-52) U/L Alkaline Phosphatase 67 (34-104) U/L Total Creatine Kinase 151 (10-223) U/L CK-MB (CK-2) 4.8 (0.6-6.3) ng/mL Troponin I 0.00 (<0.04) ng/mL C-Reactive Protein 3.92 (< 5.00) mg/L Total Protein 6.9 (6.4-8.9) g/dL Albumin 4.2 (3.2-5.2) g/dL Globulin 2.7 (2-4) g/dL Albumin/Globulin Ratio 1.6 (1-3) Lipase 62 (11.0-82.0) U/L TSH 0.56 (0.34-5.60) mcIU/mL Acetaminophen < 15 mcg/mL Serum Alcohol < 10 (<10) mg/dL 03/16/18 Range/Units 17:10 WBC (3.5-10.8) 10^3/ul RBC (4.0-5.4) 10^6/ul Hgb (14.0-18.0) g/dl Hct (42-52) % MCV (80-94) fL MCH (27-31) pg MCHC (31-36) g/dl RDW (10.5-15) % Plt Count (150-450) 10^3/ul MPV (7.4-10.4) um3 Neut % (Auto) (38-83) % Lymph % (Auto) (25-47) % Tyrrell % (Auto) (0-7) % Eos % (Auto) (0-6) % Baso % (Auto) (0-2) % Absolute Neuts (auto) (1.5-7.7) 10^3/ul Absolute Lymphs (auto) (1.0-4.8) 10^3/ul Absolute Monos (auto) (0-0.8) 10^3/ul Absolute Eos (auto) (0-0.6) 10^3/ul Absolute Basos (auto) (0-0.2) 10^3/ul Absolute Nucleated RBC 10^3/ul Nucleated RBC % INR (Anticoag Therapy) (0.77-1.02) APTT (26.0-36.3) seconds Sodium (139-145) mmol/L Potassium (3.5-5.0) mmol/L Chloride (101-111) mmol/L Carbon Dioxide (22-32) mmol/L Anion Gap (2-11) mmol/L BUN (6-24) mg/dL Creatinine (0.67-1.17) mg/dL Est GFR ( Amer) (>60) Est GFR (Non-Af Amer) (>60) BUN/Creatinine Ratio (8-20) Glucose (70-100) mg/dL Lactic Acid 1.2 (0.5-2.0) mmol/L Calcium (8.6-10.3) mg/dL Magnesium (1.9-2.7) mg/dL Total Bilirubin (0.2-1.0) mg/dL AST (13-39) U/L ALT (7-52) U/L Alkaline Phosphatase (34-104) U/L Total Creatine Kinase (10-223) U/L CK-MB (CK-2) (0.6-6.3) ng/mL Troponin I (<0.04) ng/mL C-Reactive Protein (< 5.00) mg/L Total Protein (6.4-8.9) g/dL Albumin (3.2-5.2) g/dL Globulin (2-4) g/dL Albumin/Globulin Ratio (1-3) Lipase (11.0-82.0) U/L TSH (0.34-5.60) mcIU/mL Acetaminophen mcg/mL Serum Alcohol (<10) mg/dL Result Diagrams: 03/16/18 17:10 03/16/18 17:10 Lab Statement: Any lab studies that have been ordered have been reviewed, and results considered in the medical decision making process. - Radiology CXR Xray Interpretation: No Acute Changes Radiology Interpretation Completed By: Radiologist - NO ACTIVE CARDIOPULMONARY DISEASE IS NOTED. ED physician has reviewed this report. - CT Brain CT Interpretation: Positive (See Comments) CT Interpretation Completed By: Radiologist - 1. Negative for acute intracranial process or traumatic brain injury. 2. Extensive chronic paranasal sinus mucosal disease. Potential acute sinusitis at the LEFT sphenoid sinus. ED physician has reviewed this report. - EKG 15:54 Cardiac Rate: NL EKG Rhythm: Sinus Rhythm - [address] Segment: Normal Ectopy: PVCs Re-Evaluation - Re-Evaluation First Eval Re-Evaluation Time: 18:50 Change: Unchanged - ED physician discussed plan of discharge with the pt and the pt's horse stud manager and both agree with plan of discharge. Head Injury Course/Dx Course Of Treatment: SYCOPE VERSES SEIZURE. RESULTS DISCUSSED WITH MUSIC INDUSTRY INTERN AND PATIENT. HE IS WELL IN ED. WILL NEED F/U WITH PMD AND WILL NEED AN EEG. RETURN TO ED IF WORSE. - Diagnoses Provider Diagnoses: Head injury, Loss of consciousness Discharge - Sign-Out/Discharge Documenting (check all that apply): Discharge/Admit/Transfer - Discharge Plan Condition: Stable Disposition: HOME Prescriptions: Amoxicillin/Clavulanate TAB* [Augmentin TAB 875*] 875 mg PO BID #20 tab Patient Education Materials: Syncope (ED), New-Onset Seizure in Adults (ED), Sinusitis (ED), Head Injury (ED) Referrals: Juan J FAJARDO,Steven Mcmullen [Primary Care Provider] - Additional Instructions: FOLLOW UP WITH YOUR PRIMARY CARE DOCTOR AND NEUROLOGY. IT IS UNCLEAR IF THE EPISODE WAS SYNCOPE OR A FIRST TIME SEIZURE. YOU WILL NEED AN EEG TO LOOK FOR ANY SIGNS OF SEIZURE ACTIVITY IN THE BRAIN. RETURN TO THE EMERGENCY DEPARTMENT FOR ANY WORSENING OF YOUR CONDITION; PASSING OUT, ANOTHER SIMILAR EPISODE, YOU HAVE A SEIZURE, YOU FEEL ILL OR QUESTIONS OR CONCERNS. - Billing Disposition and Condition Condition: STABLE Disposition: HOME The documentation as recorded by the Fernando shepard Stephanie accurately reflects the service I personally performed and the decisions made by me, John Valles MD.
[2018-03-16 19:35] VITALS: BP 129/92
== END 2018-03-16 19:34 | disposition home or self-care (01) ==
LOC: ED 12:55
DX: S06.9X1A Unspecified intracranial injury with loss of consciousness of 30 minutes or less, initial encounter (principal); W19.XXXA Unspecified fall, initial encounter; Y92.129 Unspecified place in nursing home as the place of occurrence of the external cause
CPT/HCPCS: 36415; 70450; 71045; 80053; 80320; 80329; 82550; 82553; 83605; 83690; 83735; 84443; 84484; 85025; 85610; 85730; 86140; 93005; 96360; 99282; G0480

== ENCOUNTER 2019-07-29 06:43 | Day surgery (SDC) | payer MEDICARE, MEDICAID ==
[~2019-07-29 06:43] MED LIST: Buffered Lidocaine 1% SYRIN* 1 ML/SYRINGE INTRADERM ONE; Famotidine IV* 10 MG/ML 2 ML (20 mg) IV ONE; Lactated Ringers 1000 ML Bag* 1,000 ML IV SCH
[2019-07-29] MEDS ORDERED: KETAMINE HCL* 50 MG/ML 10 ML VIAL ONE (08:26)
[2019-07-29] MEDS ORDERED: Midazolam* 1 MG/ML 5 ML VIAL (5 MG) ONE (08:42)
[2019-07-29] MEDS ORDERED: Ondansetron INJ* 2 MG/ML VIAL ONE (09:01)
[2019-07-29] MEDS ORDERED: Glycopyrrolate IV* 0.2 MG/ML 1 ML VIAL ONE (09:01)
[2019-07-29] MEDS ORDERED: Propofol* 10 MG/ML 20 ML BTL ONE ×3 (09:01→09:27)
[2019-07-29] MEDS ORDERED: Succinylcholine* 20 MG/ML 10 ML VIAL ONE (09:01)
[2019-07-29] MEDS ORDERED: Lidocaine 2% PF * 5 ML VIAL ONE (09:01)
[2019-07-29] MEDS ORDERED: Propofol* 0 MG/0 ML BTL ONE (09:27)
[2019-07-29] MEDS ORDERED: Propofol* 0 ML ONE (09:27)
[2019-07-29] MEDS ORDERED: Dexamethasone IV* 4 MG/ML 1 ML (4 MG) ONE (09:45)
[2019-07-29 11:52] VITALS: BP 150/109
--- NOTE | 2019-07-30 02:50 | PRO ---
CC: Dr. Steven Arita. * DATE OF PROCEDURE: 07/29/19 - [facility] PRIMARY CARE PHYSICIAN: Dr. Steven Arita. INDICATIONS FOR PROCEDURE: Esophageal stricture. PROCEDURE PERFORMED: Complete esophagogastroduodenoscopy with biopsies and dilation with CRE through the scope balloon. MEDICATIONS GIVEN: Please see anesthesia record. DESCRIPTION OF PROCEDURE: After the EEG procedure including the risks, benefits , and alternatives with the risks not limited to perforation, surgery, missed lesions, and/or were explained to the patient, written and informed consent was obtained from the mother and the facility. Next, the IV sedation was given by the anesthesia service and a bite block was placed between the teeth. An adult Olympus gastroscope was inserted into the patient's oropharynx into the tubular esophagus. The prior inflammation has healed at this point although there is evidence of likely C7, M7 Cline's esophagus in the distal portion. This was biopsied at 34, 32, and 30 cm respectively and did appear to be clean based overall. There was a slight ulceration potentially within the mid esophagus. I did take a biopsy of this throughout CMV, HSV, and EoE among other things. There was some mild tracheal elevation and slight narrowing to esophagus and 2 distinct areas in the upper two-thirds. I placed through the scope a CRE balloon dilator across these areas and inflated from 12 to 15 with good effect and a slight rent was noted in each area. The scope was advanced through the lower esophageal sphincter into the stomach. The stomach was normal in appearance in both the anterograde and on retroflexion showed a moderate size hiatal hernia. Scope was advanced through the widely patent pylorus into the duodenal bulb, C-loop, and distal duodenum. There was some mild blunting here. I took a biopsy to rule out celiac disease. The scope was then removed from the patient. Postop, he did experience obstructive sleep apnea requiring reintubation by our anesthesia service. He was eventually successfully extubated in good condition. IMPRESSION: 1. Complete esophagogastroduodenoscopy with biopsies and dilation. 2. Probable Cline's esophagus, biopsied as above. 3. Mild tracheal elevation and slight stricturing to the esophagus, dilated well with a CRE, TTS balloon dilator from 12 to 15. 4. Biopsies taken as above to rule out EoE and also for HSV and CMV. 5. Normal stomach. 6. Moderate hiatal hernia. 7. Mild blunting of the villi, biopsied. Rule out celiac disease in the small bowel. 8. Severe obstructive sleep apnea, likely Pickwickian. RECOMMENDATIONS: First and foremost discussed with the parents along with my anesthesiologist colleague, Dr. Alves that his severe obstruction needs to be evaluated with a sleep study in the future even if he is intolerant of CPAP. Extensive discussion with both the parents at bedside regarding this. In terms of his stricture, this was dilated well to 15 today with good effect. The adult scope passed through all these areas with ease. He likely does have extensive long segment Cline's as above. I took extensive biopsies with a scant ulcer in the middle that I also biopsied and some blunting to the villi in the duodenum. We will follow up on the results of all these biopsies. I do not feel that he is a candidate for any further endoscopic evaluation unless extremely severe symptoms. Given his severe obstructive sleep apnea, I feel that it would be dangerous to put him under sedation again unless there is an extremely compelling reason. I would keep him on pantoprazole indefinitely at least daily and again strongly recommend a sleep study or pulmonary evaluation in the future. [id number]/CPS #: [id number] MTDD
== END 2019-07-29 11:51 | disposition home or self-care (01) ==
LOC: OR 06:43
PROVIDERS: ATTEND Internal Medicine Gastroenterology
DX: K22.2 Esophageal obstruction (principal); K20.9 Esophagitis, unspecified; K44.9 Diaphragmatic hernia without obstruction or gangrene; R11.2 Nausea with vomiting, unspecified; R63.1 Polydipsia; F78 Other intellectual disabilities; I10 Essential (primary) hypertension; F90.9 Attention-deficit hyperactivity disorder, unspecified type; F41.8 Other specified anxiety disorders
CPT/HCPCS: 88305; 88341; 88342; J0330; J1100; J2250; J2405; J2704

== ENCOUNTER 2020-01-16 12:40 | Emergency (ER) | payer MEDICARE, MEDICAID ==
[2020-01-16 12:46] VITALS: BP 136/92
--- NOTE | 2020-01-16 12:57 | ED ---
Complex/Multi-Sys Presentation - HPI Summary HPI Summary: 39 year old M presenting to [facility] accompanied by his female care transition coordinator with a chief complaint of a cold, cough, and fever since approximately 3 weeks ago. The patient rates the pain 0/10 in severity. Symptoms aggravated by nothing. Symptoms alleviated by nothing. The patient has been taking azithromycin and Mucinex. Medication list reviewed. Allergy list reviewed. THE HPI IS LIMITED DUE TO LEVEL 5 CAVEAT - developmental delay. Home Medications Medication Instructions Recorded Confirmed Type Acetaminophen TAB* [Tylenol TAB*] 325 mg PO Q4H PRN 04/17/13 07/29/19 History Multivitamin [Tab-A-Solomon] 1 tab PO QAM 04/17/13 07/29/19 History diPHENhydraMINE PO* [Benadryl PO 25 mg PO Q5H PRN 04/17/13 07/29/19 History 50 MG CAP*] guaiFENesin 100 mg/5 ml LIQ 10 ml PO Q4H PRN 04/17/13 07/29/19 History [Robitussin 100 mg/5ml LIQ] Fluticasone NASAL SPRAY 50MCG* 2 spray BOTH NARES QAM 10/21/14 07/29/19 History [Flonase NASAL SPRAY 50MCG*] ARIPiprazole TAB* [Abilify TAB*] 2 mg PO BEDTIME MDD 2mg 12/25/16 07/29/19 History Clomipramine (NF) 100 mg PO BEDTIME 12/25/16 07/29/19 History Ibuprofen TAB* [Advil TAB*] 400 mg PO Q6H PRN 12/25/16 07/29/19 History Miconazole Nitrate [Miconazole] 2 % TOPICAL BID 12/25/16 07/29/19 History cloNIDine TAB* [Catapres TAB*] 0.1 mg PO 0800,1530 12/25/16 07/29/19 History Clotrimazole 1% TOPICAL (NF) 1 applic TOPICAL BID PRN 01/28/18 07/29/19 History [Lotrimin 1% TOPICAL (NF)] Lisinopril TAB* [Prinivil TAB*] 10 mg PO QAM 01/28/18 07/29/19 History Moisturizing CREAM* [Hydrocerin 1 applic TOPICAL BID PRN 01/28/18 07/29/19 History Cream*] Benztropine TAB* [Cogentin TAB*] 1 mg PO QAM 03/22/19 07/29/19 History Pantoprazole Sodium 40 mg PO QAM 03/22/19 07/29/19 History Haloperidol LIQ* [Haldol LIQ*] 7.5 mg PO QAM 07/22/19 07/29/19 History - History Of Current Complaint Chief Complaint: EDUpperRespComplaint Time Seen by Provider: 01/16/20 12:48 Hx Obtained From: Family/Return Checker Onset/Duration: Lasting Weeks, Still Present Timing: Weeks Severity Currently: None Aggravating Factor(s): None Alleviating Factor(s): None Associated Signs And Symptoms: Positive: Cough, Fever - Allergies/Home Medications Allergies/Adverse Reactions: Allergies Allergy/AdvReac Type Severity Reaction Status Date / Time No Known Allergies Allergy Verified 01/16/20 12:46 Home Medications: Home Medications Acetaminophen TAB* [Tylenol TAB*] 325 mg PO Q4H PRN 04/17/13 [History Confirmed 07/29/19] Multivitamin [Tab-A-Solomon] 1 tab PO QAM 04/17/13 [History Confirmed 07/29/19] diPHENhydraMINE PO* [Benadryl PO 50 MG CAP*] 25 mg PO Q5H PRN 04/17/13 [History Confirmed 07/29/19] guaiFENesin 100 mg/5 ml LIQ [Robitussin 100 mg/5ml LIQ] 10 ml PO Q4H PRN [History Confirmed 07/29/19] Fluticasone NASAL SPRAY 50MCG* [Flonase NASAL SPRAY 50MCG*] 2 spray BOTH NARES QAM 10/21/14 [History Confirmed 07/29/19] ARIPiprazole TAB* [Abilify 2 MG TAB*] 2 mg PO BEDTIME MDD 2mg 12/25/16 [History Confirmed 07/29/19] Clomipramine (NF) 100 mg PO BEDTIME 12/25/16 [History Confirmed 07/29/19] Ibuprofen TAB* [Advil TAB*] 400 mg PO Q6H PRN 12/25/16 [History Confirmed ] Miconazole Nitrate 2 % TOPICAL BID 12/25/16 [History Confirmed 07/29/19] cloNIDine TAB* [Catapres 0.1 MG TAB*] 0.1 mg PO 0800,1530 12/25/16 [History Confirmed 07/29/19] Clotrimazole 1% TOPICAL (NF) [Lotrimin 1% TOPICAL (NF)] 1 applic TOPICAL BID PRN 01/28/18 [History Confirmed 07/29/19] Lisinopril TAB* [Prinivil TAB 10 MG*] 10 mg PO QAM 01/28/18 [History Confirmed 07/29/19] Moisturizing CREAM* [Hydrocerin Cream*] 1 applic TOPICAL BID PRN 01/28/18 [ History Confirmed 07/29/19] Benztropine TAB* [Cogentin TAB*] 1 mg PO QAM 03/22/19 [History Confirmed ] Pantoprazole Sodium 40 mg PO QAM 03/22/19 [History Confirmed 07/29/19] Haloperidol LIQ* [Haldol LIQ*] 7.5 mg PO QAM 07/22/19 [History Confirmed ] Benzonatate CAP* [Tessalon 100 MG CAP*] 100 mg PO TID PRN #12 cap 01/16/20 [Rx] PMH/Surg Hx/FS Hx/Imm Hx Endocrine/Hematology History: Denies: Hx Diabetes, Hx Thyroid Disease Cardiovascular History: Reports: Hx Hypertension - ON MEDS Respiratory History: Denies: Hx Asthma, Hx Chronic Obstructive Pulmonary Disease (COPD) GI History: Reports: Hx Gastroesophageal Reflux Disease, Hx Hiatal Hernia, Other GI Disorders - forces self to vomit- on protonix Denies: Hx Ulcer Sensory History: Denies: Hx Contacts or Glasses, Hx Hearing Aid Opthamlomology History: Denies: Hx Contacts or Glasses Neurological History: Reports: Hx Developmental Delay, Other Neuro Impairments/ Disorders - moderate mental delay Psychiatric History: Reports: Hx Anxiety - ADHD AND BIPOLAR, Hx Attention Deficit Hyperactivity Disorder, Hx Depression, Hx of Violent Episodes Against Others - Cancer History Hx Chemotherapy: No - Surgical History Surgery Procedure, Year, and Place: left foot Hx Anesthesia Reactions: No - Immunization History Date of Tetanus Vaccine: up to date per pt caregiver Infectious Disease History: No Infectious Disease History: Denies: Hx Clostridium Difficile, Hx Hepatitis, Hx Human Immunodeficiency Virus (HIV), Hx of Known/Suspected MRSA, Hx Shingles, Hx Tuberculosis, History Other Infectious Disease, Traveled Outside the [place] in Last 30 Days - Family History Known Family History: Positive: Unknown - unattainable due to mental disability Family History: Patient is unable to provide any family history due to his mental disability. - Social History Alcohol Use: None Hx Substance Use: No Substance Use Type: Reports: None Hx Tobacco Use: No Smoking Status (MU): Never Smoked Tobacco Have You Smoked in the Last Year: No - Additional Comments History Additional Comments: LIMITED DUE TO LEVEL 5 CAVEAT - developmental delay. Review of Systems Positive: Fever Positive: Cough All Other Systems Reviewed And Are Negative: No - Comments Additional Review of Systems Comments: THE ROS IS LIMITED DUE TO LEVEL 5 CAVEAT - developmental delay. Physical Exam - Summary Physical Exam Summary: VITAL SIGNS: Reviewed. GENERAL: Obese male, older looking for his age. Patient is not in any acute respiratory distress. HEAD AND FACE: No signs of trauma. No ecchymosis, hematomas or skull depressions. No sinus tenderness; nasal discharge. EYES: PERRLA, EOMI x 2, No injected conjunctiva, no nystagmus. EARS: Hearing grossly intact. Ear canals and tympanic membranes are within normal limits. MOUTH: Oropharynx within normal limits; pharyngeal erythema. NECK: Supple, trachea is midline, no adenopathy, no JVD, no carotid bruit, no c- spine tenderness, neck with full ROM. CHEST: Symmetric, no tenderness at palpation. LUNGS: Coarse breath sounds bilaterally. No wheezing or crackles. CVS: Regular rate and rhythm, S1 and S2 present, no murmurs or gallops appreciated. ABDOMEN: Soft, non-tender. No signs of distention. No rebound, no guarding, and no masses palpated. Bowel sounds are normal. EXTREMITIES: FROM in all major joints, no edema, no cyanosis or clubbing. NEURO: Alert and oriented x 3. No acute neurological deficits. Speech is normal and follows commands. SKIN: Dry and warm. LIMITED DUE TO LEVEL 5 CAVEAT - developmental delay. Triage Information Reviewed: Yes Vital Signs On Initial Exam: Initial Vitals Temp Pulse Resp BP Pulse Ox 97.8 F 101 20 136/92 100 01/16/20 12:42 01/16/20 12:42 01/16/20 12:42 01/16/20 12:42 01/16/20 12:42 Vital Signs Reviewed: Yes Procedures - Sedation Patient Received Moderate/Deep Sedation with Procedure: No Diagnostics - Vital Signs Vital Signs Temp Pulse Resp BP Pulse Ox 01/16/20 12:42 97.8 F 101 20 136/92 100 - Laboratory Lab Statement: Any lab studies that have been ordered have been reviewed, and results considered in the medical decision making process. - Radiology Chest x-ray Radiology Interpretation Completed By: Radiologist Summary of Radiographic Findings: LOW LUNG VOLUMES. NO ACTIVE CARDIOPULMONARY DISEASE. ED physician has reviewed this report. Complex Multi-Symp Course/Dx Assessment/Plan: 39 year old M presenting to [facility] accompanied by his female care transition coordinator with a chief complaint of a cold, cough, and fever since approximately 3 weeks ago. The patient rates the pain 0/10 in severity. Symptoms aggravated by nothing. Symptoms alleviated by nothing. The patient has been taking azithromycin and Mucinex. Medication list reviewed. Allergy list reviewed. THE HPI IS LIMITED DUE TO LEVEL 5 CAVEAT - developmental delay. Patient declined blood work. Chest x-ray impression: Negative for acute cardiopulmonary pathology. Influenza A is positive, influenza B is negative. The patient has been having the symptoms for more than 2 weeks therefore he will not benefit from Tamiflu. Patient will be given a prescription for Tessalon tablets for cough. He will be discharged home with follow up with primary care physician. Patient is hemodynamically stable. - Diagnoses Provider Diagnoses: Influenza A Discharge ED - Sign-Out/Discharge Documenting (check all that apply): Patient Departure - Discharge Plan Condition: Stable Disposition: HOME Prescriptions: Benzonatate CAP* [Tessalon 100 MG CAP*] 100 mg PO TID PRN #12 cap PRN Reason: Cough Patient Education Materials: Influenza (ED) Referrals: Juan J FAJARDO,Steven Mcmullen [Primary Care Provider] - 3 Days Additional Instructions: Follow up with your primary care provider within 3 days for influenza noted today. Return to the emergency department for any worsening or new symptoms. - Billing Disposition and Condition Condition: STABLE Disposition: Home - Attestation Statements Document Initiated by Scribe: Yes Documenting Scribe: Beverley Potter Provider For Whom Scribe is Documenting (Include Credential): Ranjit Alvarenga MD Scribe Attestation: Beverley Bob scribed for Ranjit Alvarenga MD on 01/17/20 at 1141. Scribe Documentation Reviewed: Yes Provider Attestation: The documentation as recorded by the Beverley shepard accurately reflects the service I personally performed and the decisions made by me, Ranjit Alvarenga MD Status of Scribe Document: Viewed
[2020-01-16 13:17] LABS: Influenza A Molecular POSITIVE (Negative)
--- OUTSIDE RECORDS SUMMARY | 2020-01-16 13:50 | XMS REPORT | Continuity of Care Document ---
:1980 Author Organization 0001 - [facility] Address [address] [place] [address] Phone Care Team Providers Name Role Phone BREE OLIVER NP Unavailable Unavailable Allergies, Adverse Reactions, Alerts Substance Reaction Status Substance Type Unknown WARNIN allergy(ies) could not be collected because the type is not supported. Please contact [facility] for further details. Medications Medication Instructions Dosage Effective Status Comments Dates (start - stop) lisinopril 10 mg take 1 tablet by 10 MG - Active tablet ORAL route every day sodium chloride 1 Take 1 pill by - Active gram tablet mouth twice a day Eucerin topical apply to dry skin - Active cream twice a day as needed. pantoprazole 40 mg take 1 tablet by 40 MG - Active tablet,delayed ORAL route every release 24 hours bacitracin 500 apply to affected - Active unit/gram topical area once daily. ointment multivitamin tablet Take one tablet by - Active tab-a-vit mouth daily Micro-Guard 2 % apply by topical 0.00 - Active topical powder route 2 times every day to the affected area(s) in the morning and evening fluticasone inhale 2 spray by 2 spray - Active propionate 50 Intranasal route mcg/actuation nasal every day in each spray,suspension nostril Vaseline jelly, Rub in small - Active topical amount to irritated area around the mouth twice a day as needed promethazine 25 mg take 1 tablet by - Active tablet oral route every 6 hours as needed for nausea ibuprofen 200 mg take 2 capsule by 400 MG - Active capsule ORAL route every 4 hours as needed benztropine 1 mg Take one tablet by - Active tablet mouth once daily Anti-Fungal 2 % apply by topical 0.00 - Active Microguard topical powder route 2 times Powder 2% every day to the affected area(s) in the morning and evening Benadryl 25 mg Take two tablet - Active capsule (50MG) by mouth every 5 hrs prn runny nose or congestion. haloperidol 5 mg Take 1 1/2 tablet - Active tablet to equal 7.5 mg daily clonidine HCl 0.1 take 1 tablet by 0.1 MG - Active mg tablet oral route 2 times every day Abilify 2 mg tablet 1 tablet by mouth - Active at bedtime Biotene Oralbalance use as directed - Active mucosal gel clomipramine 50 mg take 2 capsule by 100 MG - Active capsule oral route every day at bedtime guaifenesin 100 take 10 ml po - Active mg/5 mL oral liquid [id number] prn cough or congestion. Triple Antibiotic Apply to areas BID - Active topical packet PRN acetaminophen 325 take 1 tablet by - Active mg tablet oral route every 4 hours as needed for pain, fever over 100.4 Lotrimin 1 % apply by TOPICAL - Active Topical Cream route 2 times every day to the affected and surrounding areas of skinmorning and evening sodium chloride 1 Take 1 pill by - No Longer gram tablet mouth twice a day Active lisinopril 10 mg take 1 tablet by 10 MG - No Longer tablet ORAL route every Active day Eucerin topical apply to dry skin - No Longer cream twice a day as Active needed. Problems Condition Effective Dates (start - stop) Clinical Status Hyponatremia Psychogenic polydipsia Encounter for immunization - Hyponatremia Encounter for Medicare annual wellness exam Infection of nail bed of finger of right hand Hyponatremia Essential (primary) hypertension BMI 33.0-33.9,adult Moderate mental retardation Dermatitis Vomiting in adult Rash Non-intractable vomiting without nausea, unspecified vomiting type Moderate mental retardation Psychogenic polydipsia Body mass index (BMI) 32.0-32.9, - adult Fall Risk Assessment - Encounter for Medicare annual wellness exam Encounter for immunization - Body mass index (BMI) 32.0-32.9, - adult Syncope, unspecified syncope type Benign hypertension Preoperative general physical examination Dental caries Encounter for Medicare annual wellness exam Moderate mental retardation Body mass index (BMI) 35.0-35.9, - adult Dysphagia, unspecified type Anemia, unspecified type Hyperthyroidism Essential (primary) hypertension Hyponatremia Self induced vomiting Hypertension, benign Suppurative otitis media of both ears, unspecified chronicity Hypertension, benign Acute suppurative otitis media of both ears without spontaneous rupture of tympanic membranes, recurrence not specified Benign hypertension Rash Mild dehydration Benign hypertension Dysphagia, unspecified type Encounter for Medicare annual wellness exam Benign hypertension Dysphagia, unspecified type Mental retardation Pre procedural general physical exam Dental pain Hypertension Moderate mental retardation Gynecomastia, male Moderate mental retardation Routine medical exam Soft tissue swelling Anemia Hyponatremia Hyponatremia Anemia Influenza Vaccine - Hyponatremia Psychogenic polydipsia Hypercholesterolemia, pure Cellulitis Dermatophytosis, foot Stomatitis Tachycardia Examination, routine medical Hyperlipidemia NEC/NOS Obesity NOS Hyponatremia Hypertension Foot pain, left Psychogenic polydipsia Hyponatremia Hyponatremia Otalgia of left ear Incontinence, urinary NOS Enuresis Routine Medical Exam ADHD (attention deficit hyperactivity disorder) Moderate mental retardation Acne Astigmatism Hypospadias Routine Medical Exam - Disorder, attention deficit - w/hyperactivity Acne NEC - Sinusitis, acute frontal Sinusitis, acute frontal - Routine Medical Exam Routine Medical Exam - Fatigue / Malaise Routine Medical Exam URI (upper respiratory infection) Routine Medical Exam - Upper Respiratory Infection, Acute - Cerumen impaction Impacted cerumen - Sinusitis Sinusitis, chronic NOS - Cellulitis/abscess, digit NOS Skin irritation Cellulitis/abscess, digit NOS - Disorder, skin NOS - Paronychia Cellulitis/abscess, digit NOS - Routine Medical Exam Routine Medical Exam Cellulitis/abscess finger, onychia/paronychia Hyperlipidemia NEC/NOS - Examination, routine medical - Disorder, attention deficit w/o - hyperactivity Acne NEC - Astigmatism NOS - Mental disorders, unspecified - Dermatophytosis, foot Acute Dysfunction, Eustachian tube Acute Infection, up respirat, line repairer sites, Acute acute NEC Herpes zoster, uncomplicated Acute Dermatophytosis, foot Acute Dermatophytosis, foot Acute Hyperlipidemia NEC/NOS Chronic Dermatophytosis, site NOS Chronic Hyperlipidemia NEC/NOS Chronic Obesity NOS Chronic Syndrome, organic brain NOS Chronic Disorder, 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 Acne NEC Chronic Retardation, mental, moderate Chronic Hyperlipidemia NEC/NOS Chronic Disorder, 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 Obesity NOS Chronic Retardation, mental, moderate Chronic Obesity NOS Chronic Syndrome, organic brain NOS Chronic Disorder, attention deficit Fair control w/hyperactivity Hypercholesterolemia, pure Good control Disorder, attention deficit w/o Good control hyperactivity Cellulitis Improved Cellulitis/abscess, digit NOS Improved Malaise and fatigue NEC Pending workup Malaise and fatigue NEC Pending workup Dermatitis NOS Poorly controlled Dermatophytosis, site NOS Poorly controlled Routine Medical Exam Routine Routine Medical Exam Routine Routine Medical Exam Routine Routine Medical Exam Routine Routine Medical Exam Routine Routine Medical Exam Routine Syndrome, organic brain NOS Stable Syndrome, organic brain NOS Stable Procedures Procedure Date Office/outpatient visit,est, mod Venpnctr fngr/heel/ear stick routne Results Test Name Date and Time Measure Units Reference Range Abnormal Flag Status Comments Panel Description: Basic metabolic 2000 panel - Serum or Plasma Final SODIUM 14:19:00 126 MMOL/L 135-146 L Final POTASSIUM 14:19:00 5.1 MMOL/L 3.5-5.3 N Final CHLORIDE 14:19:00 90 MMOL/L 98-107 L Final CARBON DIOXIDE 14:19:00 30 MMOL/L 21-32 N Final ANION GAP 14:19:00 6 5-15 N Final GLUCOSE 14:19:00 91 MG/DL 65-99 N Final Reference Ranges: Normal Fasting Glucose ........65-99 MG/DL Pre-Diabetes ......100-125 MG/DL Provisional Diagnosis of Diabetes .........>125 MG/DL

BUN 14:19:00 14 MG/DL 7-23 N Final CREATININE 14:19:00 0.6 MG/DL 0.5-1.2 N Final CALCIUM 14:19:00 9.3 MG/DL 8.4-10.4 N Final Panel Description: Estimated or measured glomerular filtration rate less than Final 50 percent [Reported] EGFR - NON- >60 sq. meters N Final >60 mL/min/1.73
<br/ > 14:19:00 MAURITIAN EGFR - >60 sq. meters N Final >60 mL/min/1.73 Potential MAURITIAN 14:19:00 Chronic Kidney Disease: <60ml/min/1.73sq meters Kidney Failure: <15ml/min/1.73sq meters

Encounters Encounter Practice Location Reason(s) Diagnoses Date Provider Providers Description For Visit Copied on Encounter 0001 - [facility] [employer], Primary BREE. [address], [facility]. [place] tel:[phone] [place], [address], tel:[phone] 0001 - S [employer], Primary BREE. 54 33-57 Care 0 [facility], [facility]. [place] tel:[phone] [facility] [address], tel:[phone] 2019 [facility] Hyponatremia [employer], Primary KEVIN. 54 33-57 Care 0 [facility], [facility] [address]. [place], tel:[phone], [address] tel:[phone] 0001 - [facility] Nov-1 JORGE [facility] [employer], Primary 2-201 KEVIN. 54 33-57 Care 9 [facility], [place], [place] [address]. [place], tel:[phone], [place] [address] tel:[phone] Office/outpa 0001 - [facility] Low Sodium Psychogenic Nov-0 JORGE [facility] [employer], Primary Levels polydipsia 6-201 KEVIN. 54 visit,est, 33-57 Care (chief 9 [facility], mod [facility] complaint) [facility], [place], [place] [address]. [place], tel:[phone], [place] [address] tel:[phone] 0001 - [facility] Encounter for Oct-1 MELODY [facility] [employer], Primary immunization 4-201 BREE. 54 33-[address] [place] [address], [place], [address]. [place] tel:[phone] [place], [address], [place] tel:[phone] 0001 - S Hyponatremia Sep-3 [facility] Inc, Primary 0-201 BREE. 54 33-[address] [place] [address], [place], [address]. [place] tel:[phone] [place], [address], [place] tel:[phone] 0001 - [facility] Sep-2 PATEL S Inc, Primary 4-201 KEVIN. 54 33-[address] [place] [address], [place], [place] [address]. [place], tel:[phone], [place] [address] tel:[phone] 0001 - [facility] Encounter for Sep-1 MELODY [facility], Primary Medicare annual 9-201 BREE. 54 33-57 Care [address] [place] [address], [place], nail bed of finger [address]. [place] of right tel:[phone] [place], handHyponatremiaEs [address], [place] sential (primary) tel:[phone] 33.0-33.9,adultMod erate mental retardation 0001 - [facility] Sep-1 ROSSY [employer], Primary 3-201 [place]. 33-57 Care 9 [address] [place], [place], Street, [address]. [place] tel:[phone] [place], [address], [place] tel:[phone] 0001 - S Aug-0 ROSSY [employer], Primary 9-201 [place]. 33-57 Care [address] [place] [address], Street, [address]. [place] tel:[phone] [place], [address], [place] tel:[phone] 0001 - S May-2 [employer], Primary 4-201 KEVIN. 54 33-[address] [place] [address], [place], [place] [address]. [place], tel:[phone], [place] [address] tel:[phone] 0001 - [facility] Dermatitis May-2 [employer], Primary 0-201 [place]. 42 33-57 Care 9 [facility], [place], [place], [place] [address]. [place], tel:[phone], [place] [address] tel:[phone] 0001 - S Vomiting in Apr-1 [employer], Primary adultRash 5-201 [place]. 42 33-57 Care 9 [place], [place] [address]. [place], tel:[phone], [place] [address] tel:[phone] 0001 - S Non-intractable Apr-0 [employer], Primary vomiting without 2-201 KEVIN. 54 33-57 Care nausea, [address] [place] [address] unspecified [facility], Street, vomiting type [place], [place] [address]. [place], tel:[phone], [place] [address] tel:[phone] 0001 - S Moderate mental Oct-3 [employer], Primary retardationPsychog 1-201 KEVIN. 54 33-57 Care enic 8 [facility] polydipsiaBody [facility], Street, mass index (BMI) [place], [place] 32.0-32.9, adult [address]. [place], tel:[phone], [place] [address] tel:[phone] 0001 - [facility] Fall Risk Sep-1 [facility] Inc, Primary AssessmentEncounte 2-201 BREE. 54 33-57 Care r for Medicare 8 [facility], [facility] annual wellness [place], [place], [place] [address]. [place] immunizationBody tel:[phone] [place], mass index (BMI) [address], [place] 32.0-32.9, adult tel:[phone] 0001 - [facility] Syncope, [employer], Primary unspecified 6-201 KEVIN. 54 33-57 Care syncope typeBenign 8 [facility] hypertension [facility], [place], [place] [address]. [place], tel:[phone], [place] [address] tel:[phone] 0001 - [facility] Preoperative Kwadwo- [employer], Primary general physical 0-201 KEVIN. 54 33-57 Care examinationDental 8 [facility] caries [facility], [place], [place] [address]. [place], tel:[phone], [place] [address] tel:[phone] 0001 - S Aug- [employer], Primary 9-201 KEVIN. 54 33-57 Care 7 [facility], [place], [place] [address]. [place], tel:[phone], [place] [address] tel:[phone] 0001 - S Aug- 3CI S Inc, Primary 2-201 BREE. 54 33-57 Care 7 [place], [place], Street, [address]. [place] tel:[phone] [place], [address], [place] tel:[phone] 0001 - [facility] Encounter for [employer], Primary Medicare annual 8-201 KEVIN. 54 33-57 Care wellness 7 [facility], [place], [place], [facility] [address]. [place], mass index (BMI) tel:[phone], [place] 35.0-35.9, adult [address] tel:[phone] 0001 - S Mt-2 [facility] Inc, Primary 0-201 BREE. 54 33-57 Care 7 [facility], [place], [place], [place], [address]. [place] tel:[phone] [place], [address], [place] tel:[phone] 0001 - [facility] Naun- [facility] Inc, Primary 4-201 S[place]NA. 260 33-57 Care [address] [place] [address], [facility], [place], [place] [address]. [place], tel:[phone], [place] [address] tel:[phone] 0001 - S Dysphagia, Naun-0 [facility] Inc, Primary unspecified type 5-201 SIENA. 260 33-57 Care 7 [place] [address], [facility], [place], [place] [address]. [place], tel:[phone], [place] [address] tel:[phone] 0001 - S Anemia, Jan- [employer], Primary unspecified 3-201 KEVIN. 54 33-57 Care typeHyperthyroidis 7 [facility], [place], [place] [address]. [place], tel:[phone], [place] [address] tel:[phone] 0001 - S Nov-2 [employer], Primary 1-201 KEVIN. 54 33-57 Care 6 [facility], [place], [place] [address]. [place], tel:[phone], [place] [address] tel:[phone] 0001 - S Oct- 3CI [employer] Inc, Primary 4-201 BREE. 54 33-57 Care 6 [facility], [place], [place], [place], [facility]. [place] tel:[phone] [place], [facility], [facility] [address], tel:[phone] 0001 - S Essential Sep-2 [employer], Primary (primary) KEVIN. 54 33-57 Care hypertensionHypona 6 [facility], [facility] tremia [facility], [place], [place] [address]. [place], tel:[phone], [place] [address] tel:[phone] 0001 - S Self induced Aug-2 [employer], Primary vomiting KEVIN. 54 33-57 Care 6 [facility], [facility], [place], [place] [address]. [place], tel:[phone], [address] tel:[phone] 0001 - S Mt-0 [employer], Primary KEVIN. 54 33-57 Care 6 [facility], [facility], [place], [place], [place] [address]. [place], tel:[phone], [place] [address] tel:[phone] 0001 - S Hypertension, Naun-2 [employer], Primary benignSuppurative KEVIN. 54 33-57 Care otitis media of 6 [facility], [place] both ears, [facility], [place], unspecified [place], [place], [place] chronicity [address]. [place], tel:[phone], [place] [address] tel:[phone] 0001 - S Hypertension, Naun-0 [employer], Primary benignAcute KEVIN. 54 33-57 Care suppurative otitis 6 [facility] media of both ears [facility], [place], without [place], [place] spontaneous [address]. [place], rupture of tel:[phone], tympanic [address] tel:[phone] recurrence not specified 0001 - [facility] Benign May- [employer], Primary hypertensionRashMi 9 KEVIN. 54 33-57 Care ld dehydration [address] , [facility], [place], [place] [address]. [place], tel:[phone], [place] [address] tel:[phone] 0001 - S Benign May- JORGE S Inc, Primary hypertension 3 KEVIN. 54 33-57 Care 6 [facility], [facility], [place], [place] [address]. [place], tel:[phone], [place] [address] tel:[phone] 0001 - S Dysphagia, Apr-0 PATEL S Inc, Primary unspecified type KEVIN. 54 33-57 Care 6 [facility], [facility], [place], [place] [address]. [place], tel:[phone], [place] [address] tel:[phone] 0001 - [facility] Encounter for Jan-2 JORGE [employer], Primary Medicare annual KEVIN. 54 33-57 Care wellness [address] , [facility] examBenign [facility], [place], hypertensionDyspha [place], [place] shila, unspecified [address]. [place], typeMental tel:[phone], [place] retardation [address] tel:[phone] 0001 - S Pre procedural Sep- JORGE [employer], Primary general physical KEVIN. 54 33-57 Care examDental [address] , [facility] painHypertensionMo [facility], [place], derate mental [place], [place] retardation [address]. [place], tel:[phone], [place] [address] tel:[phone] 0001 - S Gynecomastia, male Jun- JORGE [employer], Primary KEVIN. 54 33-57 Care [address] , [facility], [place], [place] [address]. [place], tel:[phone], [place] [address] tel:[phone] 0001 - S Moderate mental Feb- GLOSENGER [facility] Inc, Primary retardationRoutine 8-201 LUCIANA. 59 33-57 Care medical exam 5 [facility], [facility], [place], [place] [address]. [place], tel:[phone], [place] [address] tel:[phone] 0001 - S Kwadwo- GLOSENHigh Basin ImagingS Inc, Primary 5-201 LUCIANA. 59 33-57 Care 5 [facility], [facility], [place], [place] [address]. [place], tel:[phone], [place] [address] tel:[phone] 0001 - S Soft tissue Nov-2 [employer], Primary swelling 4-201 LUCIANA. 59 33-57 Care 4 [facility], [facility], [place], [place] [address]. [place], tel:[phone], [place] [address] tel:[phone] 0001 - S AnemiaHyponatremia Oct-1 [employer], Primary 7-201 [place]. 33-57 Care 4 [address] [employer] [place], [place] [address]. [place], tel:[phone], [place] [address] tel:[phone] 0001 - S HyponatremiaAnemia Oct-1 Stat [employer]CTT[employer]fant, Primary Influenza Vaccine 6-201 [place]ILL[place]. 33-57 Care 4 [address] [place], [place] [address]. [place], tel:[phone], [place] [address] tel:[phone] 0001 - S CellulitisCellulit Aug-0 Stat DoctorsCTTriumfant, Primary is/abscess, digit 5-201 LILLIAN. 33-57 Care NOS 4 [address] [place], [place] [address]. [place], tel:[phone], [place] [address] tel:[phone] 0001 - S HyponatremiaPsycho May-2 [facility]S [facility], Primary genic 8-201 LUCIANA. 59 33-57 Care polydipsiaHypercho 4 [facility], [facility] lesterolemia, pure [facility], [place], [place] [address]. [place], tel:[phone], [place] [address] tel:[phone] 0001 - S Cellulitis May- SCHECTER [employer], Primary 2-201 LILLIAN. 33-57 Care [address] [facility] [address] [facility], [place], [place] [address]. [place], tel:[phone], [place] [address] tel:[phone] 0001 - S Dermatophytosis, May-0 [employer], Primary foot 2-201 KEVIN. 54 33-57 Care 4 [facility], [facility], [place], [place] [address]. [place], tel:[phone], [place] [address] tel:[phone] 0001 - S Naun-2 [employer], Primary 4-201 KEVIN. 54 33-57 Care 4 [facility], [facility], [place], [place] [address]. [place], tel:[phone], [place] [address] tel:[phone] 0001 - S Stomatitis March-1 [employer], Primary 9 KEVIN. 54 33-57 Care 4 [facility], [facility], [place], [place] [address]. [place], tel:[phone], [place] [address] tel:[phone] 0001 - S Tachycardia March-0 [employer], Primary 9- KEVIN. 54 33-57 Care 4 [facility], [facility], [place], [place] [address]. [place], tel:[phone], [place] [address] tel:[phone] 0001 - S Examination, [facility]EN[facility] ImagingS [employer], Primary routine 2-201 LUCIANA. 59 33-57 Care medicalHyperlipide [address] , [facility] NEC/NOSObesity [facility], Street, NOSHyponatremiaHyp [place], [place] ertensionRoutine [address]. [place], Medical Exam tel:[phone], [place] [address] tel:[phone] 0001 - S Foot pain, left Oct- [employer], Primary 2 KEVIN. 54 33-57 Care 3 [facility], [facility], [place], [place] [address]. [place], tel:[phone], [place] [address] tel:[phone] 0001 - S Psychogenic [employer], Primary polydipsiaHyponatr KEVIN. 54 33-57 Care emia 3 [facility], [facility], [place], [place] [address]. [place], tel:[phone], [place] [address] tel:[phone] 0001 - S HyponatremiaOtalgi [employer], Primary a of left ear KEVIN. 54 33-57 Care 3 [facility], [facility], [place], [place] [address]. [place], tel:[phone], [place] [address] tel:[phone] 0001 - S Incontinence, [employer], Primary urinary NOS KEVIN. 54 33-57 Care 3 [facility], [facility], [place], [place] [address]. [place], tel:[phone], [place] [address] tel:[phone] 0001 - S Enuresis Apr- [employer], Primary KEVIN. 54 33-57 Care 3 [facility], [facility], [place], [place] [address]. [place], tel:[phone], [place] [address] tel:[phone] 0001 - S Routine Medical [employer], Primary ExamADHD 1-201 KEVIN. 54 33-57 Care (attention deficit [address], [place] hyperactivity [facility], Street, disorder)Moderate [place], [facility] [address]. [place], retardationAcneAst tel:[phone], igmatismHypospadia [address] tel:[phone] [facility] Medical [phone] ExamRoutine Medical ExamDisorder, attention deficit w/hyperactivityAcn e NEC 0001 - S Sinusitis, acute GLOSENGER Referring S Inc, Primary frontalSinusitis, 4-201 LUCIANA. 59 Provider: 33-57 Care acute frontal [address], LUCIANA [facility], [facility], [place], [place], [address] [place] [address]. [facility], [place], tel:[phone] [place], [address], [place] [address] [place], [address]. tel:+[phone] tel:[phone] 0001 - [facility] Nov- [employer]ENGER S Inc, Primary 4-201 LUCIANA. 59 33-[address], [facility], [place], [place] [address]. [place], tel:[phone], [place] [address] tel:[phone] 0001 - [facility] CENTER Routine Medical Sep- GLOSENGER S Inc, Primary ExamRoutine 2-201 LUCIANA. 59 33-57 Care Medical [address], [facility] ExamRoutine [facility], [place], Medical Exam [place], [place] [address]. [place], tel:[phone], [place] [address] tel:[phone] 0001 - [facility] Fatigue / Malaise Apr-0 GLOSENGER S Inc, Primary 3-201 LUCIANA. 59 33-[address], [facility], [place], [place], [place] [address]. [place], tel:[phone], [place] [address] tel:[phone] 0001 - [facility] Routine Medical Kwadwo-0 GLOSENGER S Inc, Primary ExamURI (upper 9-201 LUCIANA. 59 33-[address] Care [address], [place] infection)Routine [facility], [place], [place], [place] ExamRoutine [address]. [place], Medical ExamUpper tel:[phone], Respiratory [address] tel:[phone] Infection, Acute [phone] 0001 - [facility] Cerumen Dec-1 GLOSENGER S Inc, Primary impactionImpacted 2-201 LUCIANA. 59 33-[address], [facility], [place], [place] [address]. [place], tel:[phone], [place] [address] tel:[phone] 0001 - [facility] SinusitisSinusitis Nov-0 GLOSENGER Referring S Inc, Primary , chronic NOS 7-201 LUCIANA. 59 Provider: 33-[address], LUCIANA [facility], GLOSENGER, [place], [place], [address] [place] [address]. [facility], [place], [place], tel:[phone] [place], [address], [place] [address] [place], [address]. tel:[phone] tel:[phone] 0001 - [facility] Cellulitis/abscess Naun-2 GLOSENGER S Inc, Primary , digit NOSSkin 0-201 LUCIANA. 59 33-57 Care irritationCellulit [address] , [facility] is/abscess, digit [facility], [place], NOSDisorder, skin [place], [place] [address]. [place], tel:[phone], [place] [address] tel:[phone] 0001 - [facility] ParonychiaCellulit Naun-1 GLOSENGER S Inc, Primary is/abscess, digit 3-201 LUCIANA. 59 33-[address], [facility], [place], [place] [address]. [place], tel:[phone], [place] [address] tel:[phone] 0001 - [facility] Routine Medical Mar-1 GLOSENGER S Inc, Primary ExamRoutine 1-201 LUCIANA. 59 33-57 Care Medical Exam [address], [facility], [place], [place] [address]. [place], tel:[phone], [place] [address] tel:[phone] 0001 - [facility] Routine Medical GLOSENHigh Basin ImagingS Inc, Primary Exam 6-201 LUCIANA. 59 33-57 Care 1 [facility], [place], [place] [address]. [place], tel:[phone], [place] [address] tel:[phone] 0001 - [facility] Routine Medical [facility] Inc, Primary Exam 7-201 LUCIANA. 59 33-57 Care 1 [facility], [place], [place] [address]. [place], tel:[phone], [place] [address] tel:[phone] 2019 [facility] Cellulitis/abscess Dec-2 [facility], Primary finger, 1-201 LUCIANA. 59 33-57 Care onychia/paronychia 0 [facility], [place], [place] [address]. [place], tel:[phone], [place] [address] tel:[phone] 0001 - [facility] Aug- PicturelifePUTNAM COUNTY MEMORIAL HOSPITALHigh [facility], Primary 9-201 NURSE. . 33-57 Care 0 [place], [address], tel:[phone] 0001 - [facility] Hyperlipidemia [facility] Inc, Primary NEC/NOSDermatophyt 3-201 LUCIANA. 59 33-57 Care osis, foot 0 [facility], [place], [place] [address]. [place], tel:[phone], [place] [address] tel:[phone] 2019 [facility] Dysfunction, Nov-0 SKIFF COLTON. S Inc, Primary Eustachian 3-200 [facility] PC 119 33-57 Care tubeDermatophytosi 9 [facility], site N[place], [place] [address]. [place], tel:[phone], [place] [address] tel:[phone] 0001 - S Hypercholesterolem PATEL S Inc, Primary ia, pure 9-200 KEVIN. 54 - Care 9 [facility], [place], [place] [address]. [place], tel:[phone], [place] [address] tel:[phone] 0001 - S Dermatitis NOS PATEL S Inc, Primary 1-200 KEVIN. 54 - Care 9 [facility], [place], [place] [address]. [place], tel:[phone], [place] [address] tel:[phone] 0001 - [facility] Hyperlipidemia Fe MARIA D S Inc, Primary NEC/NOSObesity 5-200 MARYA. 42 W Care NOSSyndrome, 9 [facility] organic brain [facility], [place], N[place]DisorderSan [place], [place], [place] attention deficit [address]. [place], w/o tel:[phone], hyperactivityAcne [address] tel:[phone] NECRetardation, [phone] mental, moderate 0001 - S Dermatophytosis, PATEL S Inc, Primary site NOS 7-200 KEVIN. 54 - Care [address] [place] [address], [place], [place] [address]. 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 54 Provider: Care sites, acute NEC 8 [facility], [place], [place], [place], [place], [address]. 54 [facility] tel:[phone] , [place], [place], [address] [place] [address], [facility], [address]. tel:[phone] tel:[phone] 0001 - S Hyperlipidemia Oct-2 MARIA D S Inc, Primary NEC/NOSDisorder, 7-200 MARYA. 42 W Care attention deficit 8 [facility], [place] w/o [facility], Street, hyperactivityObesi [place], [place], [place] ty NOSRetardation, [address]. [place], mental, moderate tel:[phone], [place] [address] tel:[phone] 0001 - S Herpes zoster, Sep-2 PATEL Referring S Inc, Primary uncomplicated 6-200 KEVIN. 54 Provider: - Care [address] [place] [address], [facility], JORGE Eaton, [place], [place], [address] [place] [address]. [facility], [place], [place], tel:[phone] [place], [address], [place] [address] [place], [address]. tel: tel:[phone] 2019 - S Obesity Mt-1 WILL S Inc, Primary NOSDermatophytosis 7-200 MARY. 54 Care , footSyndrome, 8 [facility], [facility] organic brain [place], [place], NOSHyperlipidemia [address]. [place] NEC/NOS tel:[phone] [place], [address], [place] tel:[phone] 2019 - [facility] Malaise and May-0 PATEL S Inc, Primary fatigue NEC 7-200 KEVIN. 54 - Care 8 [facility], [facility], [place], [place] [address]. 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 54 -57 Care attention deficit 7 [facility] w/o hyperactivity [facility], [place], [place] [address]. [place], tel:[phone], [place] [address] tel:[phone] 0001 - S Dermatophytosis, May- MARIA D S Inc, Primary foot 6-200 MARYA. 42 W 33-57 Care 7 [facility], [facility], [place], [place], [place] [address]. [place], tel:[phone], [place] [address] tel:[phone] 0001 - S Disorder, Apr-2 Uepaa S Inc, Primary attention deficit 4-200 KEVIN. 54 33-57 Care w/hyperactivitySyn 7 [facility], [facility] drome, organic [facility], Street, brain N[place], [place] [address]. [place], tel:[phone], [place] [address] tel:[phone] 0001 - [facility] Oct-2 Uepaa S Inc, Primary 4-200 KEVIN. 54 33-57 Care 6 [facility], [place], [place] [address]. [place], tel:[phone], [place] [address] tel:[phone] 0001 - [facility] Malaise and Mar- Uepaa S Inc, Primary fatigue NEC 0-200 KEVIN. 54 33-57 Care 6 [facility], [place], [place] [address]. [place], tel:[phone], [place] [address] tel:[phone] 0001 - [facility] Oct-2 SarsysS Inc, Primary 1-200 NURSE. . -57 Care 5 [place], [address], [place] tel:[phone] 0001 - S Oct-1 Xigen[employer] Inc, Primary 9-200 KEVIN. 54 33-57 Care 5 [facility], [place], [place] [address]. [place], tel:[phone], [place] [address] tel:[phone] 0001 - S Examination, [employer]igen[employer] Inc, Primary routine 5-200 KEVIN. 54 33-57 Care medicalDisorder, 5 [facility], [facility] attention deficit [facility], Street, w/o [place], [facility] [address]. [place], NECAstigmatism [phone], [facility] [address] tel:[phone] unspecified Family History Family Member Diagnosis Age At Onset Unknown Immunizations Vaccine Date Status Comments Influenza, injectable, administered Source: New Immunization quadrivalent, preservative Record free, split virus Influenza, injectable, administered Source: New Immunization quadrivalent, preservative Record free, split virus Td (adult) preservative free administered Source: New Immunization Record Influenza, injectable, administered Source: Other Provider quadrivalent, preservative free, split virus [id number] Influenza, injectable, administered Note: fluvirin 0.5 ml lot # quadrivalent, preservative [id number] exp 04/08/2017 ; free, split virus 3 years or Source: Other Provider older, Fluarix Quad [id number] Fluarix Quadrivalent Syringe administered Source: Source Unspecified Fluvirin Multi Dose Vial administered Note: oral temp. 97.4 degrees. ; Source: New Immunization Record flu (split) (3 yrs or older) administered Source: New Immunization 0.5 mL IM with preservatives Record Tdap administered Source: New Immunization Record flu (split) (3 yrs or older) administered Source: New Immunization 0.5 mL IM without preservatives Record flu (split) (3 yrs or older) administered Source: New Immunization 0.5 mL IM without preservatives Record flu (split) (3 yrs or older) administered Source: New Immunization Record flu (split) (3 yrs or older) cancelled Source: New Immunization Record Payers Payer name Insurance type Covered green party ID Authorization(s) Medicare [id number] Medicare [id number] Medicaid [id number] Medicare A [id number] Medicare B [id number] Medicaid [facility] [id number] Medicare A [id number] Medicare B [id number] Medicaid [facility] [id number] Social History Type Description Quantity Date Captured Comments Alcohol Use Details No Caffeine Use Details No Tobacco Use Status Unknown Smoking Status Never smoker Non-Smoking Tobacco : No Details Available : No Details Available 2018 Use Details Vital Signs Date / Height Weight BMI Pulse Blood Temperature Respiratory Body Head BMI Time: Rate Pressure Rate Surface Circumference percentile Area 60.25 175.93 34.0 78 120/80 97.50 F 20 /min in lbs 7 /min mm[Hg] meter(2) 1:45 kg/m PM eter (2) Chief Complaint And Reason For Visit No information Reason For Referral Reason For Referral Unknown Plan Of Care Date Type Action Status Referral Ordered: ordered Referrals: Gastroenterology. Evaluate and treat Appointment date/timeframe: 03/14/2019 Referral Ordered: ordered Esophagus/Barium Swallow Referral Referred To: ordered BENNY FAY MD [address] [place], [phone] Ordered: Referrals: Speech Therapy. BENNY FAY MD. Evaluate and treat Appointment date/timeframe: 02/20/2016 Referral Ordered: ordered . Otolaryngology. Consult and treat. Appointment date/timeframe: 3 Months Referral Referred To: ordered JONAS VANN [address] [place], [address] [phone] Ordered: JONAS VANN. Urology. Consult and treat. Appointment date/timeframe: 05/30/2013 Referral Referred To: ordered WILDER [facility] [address] [place], [phone] Ordered: WILDER STEPHENS. Dermatology. Consult and treat. Appointment date/timeframe: 1 Month Referral Ordered: ordered . Dermatology. Consult and treat. Appointment date/timeframe: 1 Month Appointment DESTINEE ALCARAZ Date Type Problem Goal Intervention Status Start Date Unknown History Of Present Illness Encounter Date Complaint History Of Present Illness Low Sodium Levels Patient is here following up with is blood work which indicates Low Sodium Levels. Caregivers basically are here to find out what else they can do to help with bringing the sodium up. Have been giving pretzels and different foods with sodium and trying to watch his fluid intake. 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 Lives at [facility] Related to Moderate mental retardation Continue with Lisinopril at current Related to Essential (primary ) dose. hypertension Check lab work Related to Hyponatremia Reviewed the IPPE and found no Related to Encounter for Medicare problems. All other screenings were annual wellness exam negative. use the bacitracin ointment to the nail Related to Infection of nail bed and soak in epsom salt 2xday for 5 of finger of right hand minutes. 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 Related to Encounter for Medicare All other screenings were annual wellness exam negative.Annual exam- [facility] [place] Blood work 03/16/18Colonoscopy- not indicatedFlu vaccine- given todayPneumonia vaccine- not indicatedTetanus vaccine- Given todayPSA testing- not indicatedEye exam- not cooperative for exam, they are looking for new provider for testingHearing Exam-not indicated Pt is stable and doing well, no changes Related to Dysphagia, unspecified made at this visit. type recheck in one month Related to Soft tissue swelling Continue with 1 liter fluid restriction. Related to Hyponatremia Monitor intake. Due to water intoxication. Fluid Related to Anemia restriction - 1 liter per day. Improved. However patient picks at toe Related to Cellulitis/ abscess, nails - red and swollen. Keep toes digit NOS covered to avoid picking. Soak in epsom salt once daily as needed. Left forearm - resolved. Triple Related to Cellulitis antibiotic ointment as needed. Left forearm and right 3rd toe. Keflex Related to Cellulitis as prescribed. Triple anitbiotic ointment twice daily. Keep site covered.
--- OUTSIDE RECORDS SUMMARY | 2020-01-16 13:50 | XMS REPORT | Continuity of Care Document ---
:1980 Author Organization 0001 - [facility] Address [address] [place] [address] Phone Care Team Providers Name Role Phone KEVIN PATEL MD Unavailable Unavailable Allergies, Adverse Reactions, Alerts Substance Reaction Status Substance Type Unknown WARNIN allergy(ies) could not be collected because the type is not supported. Please contact [facility] for further details. Medications Medication Instructions Dosage Effective Status Comments Dates (start - stop) multivitamin tablet Take one tablet by - Active tab-a-vit mouth daily azithromycin 250 mg take 2 tablet by 500 MG - Active tablet oral route every day for 1 day then 1 tablet (250 mg) by oral route once daily for 4 days prednisone 10 mg Take 4 pills by - Active tablet mouth for 4 days, then 3 for 3 days, 2 for 2 days, then 1 for 1 day lisinopril 10 mg take 1 tablet by [...] po - Active mg/5 mL oral liquid [id number] prn cough or congestion. Triple Antibiotic Apply [...] Longer tablet ORAL route every Active day Problems Condition Effective Dates (start - stop) Clinical Status Cough Hyponatremia Psychogenic polydipsia Encounter for immunization - [...] Dysfunction, Eustachian tube Acute Infection, up respirat, ice cream mixer sites, Acute acute NEC Herpes zoster, uncomplicated [...] organic brain NOS Stable Procedures Procedure Date Procedure Unknown Results Test Name Date and Time Measure Units Reference Range Abnormal Flag Status Comments Unknown Encounters Encounter Practice Location Reason(s) Diagnoses Date Provider Providers Description For Visit Copied on Encounter 0001 - [facility] Cough Mar- JORGE [facility], Primary 4- KEVIN. 54 33-[address], [place], [place], [place] [address]. [place], tel:[phone], [address] tel:[phone] 0001 - [facility] Feb-2 [facility] Inc, Primary 6-202 BREE. 54 33-57 Care 0 [place], [place], [place], [facility]. Christ tel:[phone] [place], [address], tel:[phone] 0001 - [facility] Kwadwo-1 [facility]ISING [facility] Inc, Primary 6-202 BREE. 54 33-57 Care 0 [place], [place], [place], [address]. [place] tel:[phone] [place], [address], [place] tel:[phone] 0001 - S Hyponatremia Kwadwo-0 PATEL S Inc, Primary 8-202 KEVIN. 54 33-57 Care 0 [facility], [place], [place], [place] [address]. [place], tel:[phone], [address] tel:[phone] 0001 - S Nov-1 PATEL S Inc, Primary 2-201 KEVIN. 54 33-57 Care 9 [facility], [place], [place] [address]. [place], tel:[phone], [address] tel:[phone] 0001 - S Psychogenic Nov-0 PATEL S Inc, Primary polydipsia 6-201 KEVIN. 54 33-57 Care 9 [facility], [place], [place], [place] [address]. [place], tel:[phone], [address] tel:[phone] 0001 - S Encounter for Oct- [facility] Inc, Primary immunization 4-201 BREE. 54 33-57 Care 9 [place], [place], [place], [facility]. Christ tel:[phone] [place], [address], tel:[phone] 0001 - S Hyponatremia Sep-3 [facility] Inc, Primary 0-201 BREE. 54 33-57 Care 9 [facility], [address]. [place] tel:+[phone] [place], [address], [place] tel:[phone] 0001 - S Sep-2 [employer] Inc, Primary 4-201 KEVIN. 54 33-57 Care 9 [facility], [facility], [place], [place] [address]. [place], tel:[phone], [place] [address] tel:[phone] 0001 - S Encounter for Sep-1 RISING [employer] Inc, Primary Medicare annual 9- BREE. 54 33-57 Care wellness 9 [facility], [facility] examInfection of [place], [place], Street, nail bed of finger [address]. [place] of right tel:[phone] [place], handHyponatremiaEs [address], [place] sential (primary) tel:+ hypertensionBMI [phone] 33.0-33.9,adultMod erate mental retardation 0001 - S Sep-1 ROSSY S Inc, Primary 3-201 [place]. 33-57 Care 9 54 [facility], [place], [place], Street, [address]. [place] tel:+[phone] [place], [address], [place] tel:+ [phone] 0001 - S Aug-0 ROSSY [employer] Inc, Primary 9-201 [place]. 33-57 Care 9 54 [place], [place], Street, [address]. [place] tel:+[phone] [place], [address], [place] tel:[phone] 0001 - S Mt-2 [employer] USS Inc, Primary 4-201 KEVIN. 54 33-57 Care 9 [facility], [facility], [place], [place] [address]. [place], tel:[phone], [place] [address] tel:[phone] 0001 - S Dermatitis May-2 JAYLONBERNARDINO S Inc, Primary 0-201 [place]. 42 33-57 Care 9 [facility], [place], [place], [place] [address]. [place], tel:[phone], [place] [address] tel:[phone] 0001 - S Vomiting in Apr-1 SCARSETH [facility], Primary adultRash 5-201 [place]. 42 33-57 Care 9 [facility], Street, [place], [place], [place] [address]. [place], tel:[phone], [place] [address] tel:[phone] 0001 - S Non-intractable Apr-0 [facility], Primary vomiting without 2-201 KEVIN. 54 33-57 Care nausea, 9 [facility], [facility] unspecified [facility], Street, vomiting type [place], [place] [address]. [place], tel:[phone], [place] [address] tel:[phone] 0001 - [facility] Moderate mental Oct- [facility], Primary retardationPsychog 1-201 KEVIN. 54 33-57 Care enic 8 [facility] polydipsiaBody [facility], [place], mass index (BMI) [place], [place] 32.0-32.9, adult [address]. [place], tel:[phone], [place] [address] tel:[phone] 0001 - [facility] Fall Risk Sep- RISING [facility], Primary AssessmentEncounte 2-201 BREE. 54 33-57 Care r for Medicare 8 [facility] annual wellness [place], [place], [place], [place] [address]. Christ immunizationBody tel:[phone] [place], mass index (BMI) [address], [place] 32.0-32.9, adult tel:[phone] 0001 - S Syncope, March- PATEL S Inc, Primary unspecified 6-201 KEVIN. 54 33-57 Care syncope typeBenign 8 [facility] hypertension [facility], Street, [place], [place] [address]. [place], tel:[phone], [place] [address] tel:[phone] 0001 - S Preoperative Nov- [facility], Primary general physical 0-201 KEVIN. 54 33-57 Care examinationDental [address] , Tanozoraida Fonseca [facility], [place], [place] [address]. [place], tel:[phone], [address] tel:[phone] 0001 - S Oct- PATEL [facility] Inc, Primary 9-201 KEVIN. 54 33-57 Care 7 [facility], [facility], [place], [place] [address]. [place], tel:[phone], [address] tel:[phone] 0001 - S Jun-2 [facility] Inc, Primary 2-201 BREE. 54 33-57 Care 7 [place], [place], [place], [address]. [place] tel:[phone] [place], [address], tel:[phone] 0001 - S Encounter for PATEL S Inc, Primary Medicare annual 8-201 KEVIN. 54 33-57 Care wellness 7 [facility] examModerate [facility], [place], [place], [place] retardationMary [facility]. [facility]ley [facility] [address]. [place], mass index (BMI) tel:[phone], [place] 35.0-35.9, adult [address] tel:[phone] 0001 - S Mt-2 [employer] [facility] Inc, Primary 0-201 BREE. 54 33-57 Care 7 [place], [place], [place], [address]. Christ tel:[phone] [place], [address], [place] tel:[phone] 0001 - S Naun-1 [facility] Inc, Primary 4-201 SIENA. 260 33-57 Care [address], [place], [place], [place] [address]. [place], tel:[phone], [place] [address] tel:[phone] 0001 - [facility] Dysphagia, Naun-0 MICHAEL S Inc, Primary unspecified type 5-201 SIENA. 260 33-57 Care [address], [facility], [place], [place] [address]. [place], tel:[phone], [place] [address] tel:[phone] 0001 - [facility] Anemia, Mar-1 [employer] Inc, Primary unspecified 3-201 KEVIN. 54 33-57 Care typeHyperthyroidis 7 [facility], [facility], [place], [place] [address]. [place], tel:[phone], [place] [address] tel:[phone] 0001 - S Nov-2 [employer] Inc, Primary 1-201 KEVIN. 54 33-57 Care 6 [facility], [facility], [place], [place] [address]. [place], tel:[phone], [place] [address] tel:[phone] 0001 - S Oct-1 RISING [employer] Inc, Primary 4-201 BREE. 54 33-57 Care 6 [facility], [place], [place], [place], [facility]. [place] tel:[phone] [place], [facility] [address], tel:[phone] 0001 - S Essential Sep-2 [employer], Primary (primary) 1201 KEVIN. 54 33-57 Care hypertensionHypona 6 [facility], [facility], [place], [place] [address]. [place], tel:[phone], [place] [address] tel:[phone] 0001 - S Self induced Aug-2 [employer], Primary vomiting 5-201 KEVIN. 54 33-57 Care 6 [facility], [facility], [place], [place] [address]. [place], tel:[phone], [place] [address] tel:[phone] 0001 - S Mt-0 [employer], Primary 8-201 KEVIN. 54 33-57 Care 6 [facility], [facility], [place], [place] [address]. [place], tel:[phone], [place] [address] tel:[phone] 0001 - S Hypertension, Naun-2 [employer], Primary benignSuppurative KEVIN. 54 33-57 Care otitis media of [address] , Tano Fonseca both ears, [facility], Street, unspecified [place], [place], [place] chronicity [address]. [place], tel:[phone], [place] [address] tel:[phone] 0001 - S Hypertension, Naun-0 PATEL [employer] Inc, Primary benignAcute KEVIN. 54 33-57 Care suppurative otitis 6 [facility], [facility] media of both ears [facility], Street, without [place], [place], [place] spontaneous [address]. [place], rupture of tel:[phone], [place] tympanic [address] tel:[phone], [phone] recurrence not specified 0001 - S Benign March- [employer], Primary hypertensionRashMi KEVIN. 54 33-57 Care ld dehydration 6 [facility], [facility], [place], [place], [place] [address]. [place], tel:[phone], [place] [address] tel:[phone] 0001 - S Benign March- [employer], Primary hypertension KEVIN. 54 33-57 Care 6 [facility], [facility], [place], [place] [address]. [place], tel:[phone], [place] [address] tel:[phone] 0001 - S Dysphagia, Apr-0 [employer], Primary unspecified type KEVIN. 54 33-57 Care 6 [facility], [facility], [place], [place] [address]. [place], tel:[phone], [place] [address] tel:[phone] 0001 - [facility] Encounter for Mar-2 PATEL [employer] Inc, Primary Medicare annual KEVIN. 54 33-57 Care wellness 6 [facility], Tano [place] examBenign [facility], Street, hypertensionDyspha [place], [place], [place] shila, unspecified [address]. [place], typeMental tel:[phone], [place] retardation [address] tel:[phone] 0001 - S Pre procedural Sep- [employer], Primary general physical 6-201 KEVIN. 54 33-57 Care examDental [address] , Tanozoraida Fonseca painHypertensionMo [facility], Street, derate mental [place], [place], [place] retardation [address]. [place], tel:[phone], [place] [address] tel:[phone] 0001 - S Gynecomastia, male Aug- [employer], Primary 1-201 KEVIN. 54 33-57 Care 5 Main , [facility], [place], [place] [address]. [place], tel:[phone], [place] [address] tel:[phone] 0001 - S Moderate mental Fe- [employer]OSCS [employer] Inc, Primary retardationRoutine 8-201 LUCIANA. 59 33-57 Care medical exam 5 [address] , [facility], [place], [place] [address]. [place], tel:[phone], [place] [address] tel:[phone] 0001 - S Kwadwo- [employer], Primary 5-201 LUCIANA. 59 33-57 Care 5 Main , [facility], [place], [place] [address]. [place], tel:[phone], [place] [address] tel:[phone] 0001 - S Soft tissue Nov-2 GLOSENGame ClosureS Inc, Primary swelling 4-201 LUCIANA. 59 33-57 Care 4 Main , [facility], [place], [place] [address]. [place], tel:[phone], [place] [address] tel:[phone] 0001 - S AnemiaHyponatremia Oct- SCHECTER S Inc, Primary 7-201 LILLIAN. 33-57 Care 4 [address] [facility] [address] [facility] [address] [facility], [place], [place], [place] [address]. [place], tel:[phone], [place] [address] tel:[phone] 0001 - S HyponatremiaAnemia Oct-1 [employer] Media[employer]ER S Inc, Primary Influenza Vaccine 6-201 LILLIAN. 33-57 Care 4 [address] [place], [place] [address]. [place], tel:[phone], [place] [address] tel:[phone] 0001 - [facility] CellulitisCellulit Aug-0 [employer]CTT[employer] Inc, Primary is/abscess, digit 5-201 LILLIAN. 33-57 Care NOS 4 [address] [place] [place], [place], [place] [address]. [place], tel:[phone], [place] [address] tel:[phone] 0001 - [facility] HyponatremiaPsycho May-2 GLOSENGER S Inc, Primary genic 8-201 LUCIANA. 59 33-57 Care polydipsiaHypercho 4 [facility] lesterolemia, pure [facility], [place], [place] [address]. [place], tel:[phone], [place] [address] tel:[phone] 0001 - [facility] Cellulitis Mt-2 Manta MediaCTER Trus[employer]S Inc, Primary 2-201 LILLIAN. 33-57 Care 4 [address] [facility], [place] [address]. [place], tel:[phone], [place] [address] tel:[phone] 0001 - [facility] Dermatophytosis, Mt-0 [employer] Inc, Primary foot 2-201 KEVIN. 54 33-57 Care 4 [facility], [place], [place] [address]. [place], tel:[phone], [place] [address] tel:[phone] 0001 - S Naun-2 TIM [employer] S Inc, Primary 4-201 KEVIN. 54 33-57 Care 4 [facility], [place], [place] [address]. [place], tel:[phone], [place] [address] tel:[phone] 0001 - S Stomatitis March- [employer], Primary KEVIN. 54 33-57 Care 4 [facility], [facility], [place], [place] [address]. [place], tel:[phone], [place] [address] tel:[phone] 0001 - S Tachycardia March-0 [employer], Primary KEVIN. 54 33-57 Care 4 [facility], [facility], [place], [place] [address]. [place], tel:[phone], [place] [address] tel:[phone] 0001 - [facility] Examination, [facility], Primary routine LUCIANA. 59 33-57 Care medicalHyperlipide 4 [facility] janette NEC/NOSObesity [facility], [place], NOSHyponatremiaHyp [place], [place], [place] ertensionRoutine [address]. [place], Medical Exam tel:[phone], [place] [address] tel:[phone] 0001 - S Foot pain, left Oct- [employer], Primary KEVIN. 54 33-57 Care 3 [facility], [facility], [place], [place] [address]. [place], tel:[phone], [place] [address] tel:[phone] 0001 - S Psychogenic Sep- [employer] USS [facility], Primary polydipsiaHyponatr KEVIN. 54 33-57 Care emia 3 [facility], [facility], [place], [place] [address]. [place], tel:[phone], [place] [address] tel:[phone] 0001 - S HyponatremiaOtalgi [employer] USS [employer], Primary a of left ear KEVIN. 54 33-57 Care 3 [facility], [facility], [place], [place], [place] [address]. [place], tel:[phone], [place] [address] tel:[phone] 0001 - [facility] Incontinence, [facility], Primary urinary NOS KEVIN. 54 33-57 Care 3 [address] , [facility], [place], [place], [place] [address]. [place], tel:[phone], [place] [address] tel:[phone] 0001 - [facility] Enuresis Apr- [facility], Primary KEVIN. 54 33-57 Care 3 Main , [facility], [place], [place] [address]. [place], tel:[phone], [place] [address] tel:[phone] 0001 - [facility] Routine Medical [facility], Primary ExamADHD KEVIN. 54 33-57 Care (attention deficit 3 Main , [facility] hyperactivity [facility], Street, disorder)Moderate [place], [place], [place] mental [address]. [place], retardationAcneAst tel:[phone], [place] igmatismHypospadia [address] tel:+60 [facility] Medical [phone] ExamRoutine Medical ExamDisorder, attention deficit w/hyperactivityAcn e NEC 0001 - [facility] Sinusitis, acute GLOSENGER [facility] Inc, Primary frontalSinusitis, LUCIANA. 59 Provider: 33-57 Care acute frontal 3 Main , [facility], [facility], [place], [place], [address] [place] [address]. [facility], [place], [place], tel:[phone] [facility] [address], [place] [address] [place], [address]. tel:+60 tel:[phone] 0001 - [facility] Nov- [facility] Inc, Primary LUCIANA. 59 33-57 Care 3 [address] , [facility], [place], [place] [address]. [place], tel:[phone], [place] [address] tel:[phone] 0001 - [facility] Routine Medical Nov-1 GLOSENGER [facility] Inc, Primary ExamRoutine 2-201 LUCIANA. 59 33-57 Care Medical [address], [facility] ExamRoutine [facility], [place], Medical Exam [place], [place] [address]. [place], tel:[phone], [place] [address] tel:[phone] 0001 - [facility] Fatigue / Malaise Apr-0 GLOSENGER [facility] Inc, Primary 3-201 LUCIANA. 59 33-[address], [facility], [place], [place] [address]. [place], tel:[phone], [place] [address] tel:[phone] 0001 - [facility] Routine Medical Kwadwo-0 GLOSENGER [facility] Inc, Primary ExamURI (upper 9-201 LUCIANA. 59 33-57 Care respiratory [address] Main , [facility] infection)Routine [employer], [place], [place] ExamRoutine [address]. [place], Medical ExamUpper tel:[phone], [place] Respiratory [address] tel:+160 Infection, Acute [phone] 0001 - [facility] Cerumen Dec-1 GLOSENGER [facility] Inc, Primary impactionImpacted 2-201 LUCIANA. 59 33-57 Care cer[address], [facility], [place], [place] [address]. [place], tel:[phone], [place] [address] tel:[phone] 0001 - [facility] SinusitisSinusitis Nov-0 GLOSENGER Referring [facility] Inc, Primary , chronic NOS 7-201 LUCIANA. 59 Provider: 33-[address], LUCIANA [facility], GLOSENGER, [place], [place], [address] [place] [address]. [facility], [place], [place], tel:[phone] [place], [address], [place] [address] [place], [address]. tel:+60 tel:[phone] 0001 - S Cellulitis/abscess Naun-2 GLOSENGER [facility] Inc, Primary , digit NOSSkin 0-201 LUCIANA. 59 33-57 Care irritationCellulit [address], [facility] is/abscess, digit [place], [place], NOSDisorder, skin [place], [place], [place] N[place] [address]. [place], tel:[phone], [place] [address] tel:[phone] 0001 - [facility] ParonychiaCellulit Naun-1 GLOSENGER [facility] Inc, Primary is/abscess, digit 3-201 LUCIANA. 59 33-57 Care NOS [address] , [facility], [place], [place] [address]. [place], tel:[phone], [place] [address] tel:[phone] 0001 - [facility] Routine Medical Mar-1 GLOSENGER [facility] Inc, Primary ExamRoutine 1-201 LUCIANA. 59 33-57 Care Medical Exam 1 [facility], [facility], [place], [place] [address]. [place], tel:[phone], [place] [address] tel:[phone] 0001 - [facility] Routine Medical Feb-1 GLOSENGER [facility] Inc, Primary Exam 6-201 LUCIANA. 59 33-57 Care 1 [facility], [facility], [place], [place] [address]. [place], tel:[phone], [place] [address] tel:[phone] 0001 - [facility] Routine Medical Kwadwo-1 GLOSENGER [facility] Inc, Primary Exam 7-201 LUCIANA. 59 33-57 Care 1 [facility], [facility], [place], [place] [address]. [place], tel:[phone], [place] [address] tel:[phone] 0001 - [facility] Cellulitis/abscess Dec-2 GLOSENGER [facility] Inc, Primary finger, 1-201 LUCIANA. 59 33-57 Care onychia/paronychia [address] , [facility], [place], [place] [address]. [place], tel:[phone], [place] [address] tel:[phone] 0001 - [facility] Oct- [facility] Inc, Primary 9-201 NURSE. . 33-57 Care 0 [place], [address], [place] tel:[phone] 0001 - S Hyperlipidemia Kwadwo- GLOSENGER S Inc, Primary NEC/NOSDermatophyt 3-201 LUCIANA. 59 33-57 Care osis, foot 0 [facility], [place], [place], [place] [address]. [place], tel:[phone], [place] [address] tel:[phone] 0001 - S Dysfunction, Nov-0 SKIFF COLTON. S Inc, Primary Eustachian 3-200 [facility] PC 119 33-57 Care tubeDermatophytosi 9 [facility] [place], site NOS [place], [place], [place] [address]. [place], tel:[phone], [place] [address] tel:[phone] 0001 - S Hypercholesterolem March- PATEL S Inc, Primary ia, pure 9-200 KEVIN. 54 33-57 Care 9 [facility], [place], [place], [place] [address]. [place], tel:[phone], [address] tel:[phone] 0001 - S Dermatitis NOS Jan- TIM [employer] S Inc, Primary 1-200 KEVIN. 54 33-[address] [place] [address], [place], [place] [address]. [place], tel:[phone], [place] [address] tel:[phone] 0001 - S Hyperlipidemia Fe- MARAI D S Inc, Primary NEC/NOSObesity 5-200 MARYA. 42 W 33-57 Care NOSSyndrome, [address] [place] [address] organic brain [facility], [place], [place], [place], [place] attention deficit [address]. [place], w/o tel:[phone], hyperactivityAcne [address]9 tel:+160 NECRetardation, [phone] mental, moderate 0001 - [facility] Dermatophytosis, JORGE S Inc, Primary site NOS 7-200 KEVIN. 54 Care 9 [facility], Street, [place], [place] [address]. [place], tel:[phone], [place] [address] tel:[phone] 0001 - [facility] Infection, up WILL Referring S Inc, Primary respirat, ice cream mixer 0-200 MARY. 54 Provider: Care sites, acute NEC 8 [place], [place], [facility], [address]. [address] [place] [address] tel:[phone] , [place], [address] [place], [address], [facility], [address]. tel:+60 tel:[phone] 0001 - [facility] Hyperlipidemia MARIA D S Inc, Primary NEC/NOSDisorder, 7-200 MARYA. 42 W Care attention deficit 8 [facility] w/o [facility], [place], hyperactivityObesi [place], [place], [place] ty NOSRetardation, [address]. [place], mental, moderate tel:[phone], [place] [address] tel:[phone] 0001 - [facility] Herpes zoster, Sep- PATEL Referring S Inc, Primary uncomplicated 6-200 KEVIN. 54 Provider: Care 8 [facility], KEVIN [facility], PATEL , [place], [place], 54 [facility] [address]. [facility], [place], [place], tel:[phone] [place], [address], [place] [address] [place], [address]. tel:+60 tel:[phone] 0001 - [facility] Obesity [facility], Primary NOSDermatophytosis 7-200 MARY. 54 Care , footSyndrome, 8 [facility] organic brain [place], [place], [place], NOSHyperlipidemia [address]. [place] NEC/NOS tel:[phone] [place], [place], [facility] [address], [place] tel:[phone] 0001 - [facility] Malaise and May-0 [employer], Primary fatigue NEC 7-200 KEVIN. 54 33-57 Care 8 Main , [facility], [place], [place], [place] [address]. 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 54 33-57 Care attention deficit 7 [facility], [facility] w/o hyperactivity [facility], [place], [place], [place] [address]. [place], [place], tel:[phone], [place] [address] tel:[phone] 0001 - S Dermatophytosis, Mt-2 MARIA D [facility], Primary foot 6-200 MARYA. 42 W 33-57 Care 7 [facility], [facility], [place], [place], [place] [address]. [place], [place], tel:[phone], [place] [address] tel:[phone] 0001 - [facility] Disorder, Apr-2 [employer], Primary attention deficit 4-200 KEVIN. 54 33-57 Care w/hyperactivitySyn 7 [facility], [facility] drome, organic [facility], [place], brain NOS [place], [place], [place] [address]. [place], [place], tel:[phone], [place] [address] tel:[phone] 0001 - [facility] Oct-2 [employer], Primary 4-200 KEVIN. 54 33-57 Care 6 [facility], [facility], [place], [place], [place] [address]. [place], [place], tel:[phone], [place] [address] tel:[phone] 0001 - [facility] Malaise and Mar-2 [employer], Primary fatigue NEC 0-200 KEVIN. 54 33-57 Care 6 Main , [facility], [place], [place], [place] [address]. [place], [place], tel:[phone], [place] [address] tel: [phone] 0001 - [facility] Aug-2 NEVAWY [facility], Primary 1-200 NURSE. . 33-57 Care 5 [place], [address], tel: [phone] 0001 - [facility] Aug-1 [employer], Primary 9-200 KEVIN. 54 33-57 Care 5 [facility], [facility], [place], [place], [place] [address]. [place], [place], tel:[phone], [place] [address] tel: [phone] [address] [place] [address] Examination, [facility], Primary routine 5-200 KEVIN. 54 33-57 Care medicalDisorder, [address] [place] [address] attention deficit [facility], [place], w/o [place], [place], [place] hyperactivityAcne [address]. [place], [place], [facility] tel:[phone], NOSMental [address] tel:[phone] unspecified Family History Family Member Diagnosis Age At Onset Unknown Immunizations Vaccine Date Status Comments Influenza, injectable, administered Source: New Immunization quadrivalent, preservative Record free, split virus Influenza, injectable, administered Source: New Immunization quadrivalent, preservative Record free, split virus Td (adult) preservative free administered Source: New Immunization Record Influenza, injectable, administered Source: Other Provider quadrivalent, preservative free, split virus [id number] Influenza, injectable, administered Note: fluvirin 0.5 ml lot # quadrivalent, preservative [id number] exp 04/08/2017 ; free, split virus 3 years or Source: Other Provider older, Fluarix Quad [id number] Fluarix Quadrivalent Syringe administered Source: Source Unspecified [...] Record Payers Payer name Insurance type Covered alliance party ID Authorization(s) Medicare [id number] Medicare Mc [id number] Medicaid He [id number] Medicare A [id number] Medicare B [id number] Medicaid [facility] [id number] Medicare A [id number] Medicare B [id number] Medicaid [facility] [id number] Social History Type Description Quantity Date Captured Comments Alcohol Use Details Unknown Caffeine Use Details Unknown Tobacco Use Status Unknown Smoking Status Unknown Vital Signs Date / Height Weight BMI Pulse Blood Temperature Respiratory Body Head BMI Time: Rate Pressure Rate Surface Circumference percentile Area Unknown Chief Complaint And Reason For Visit No information Reason For Referral Reason For Referral Unknown Plan Of Care Date Type Action Status Referral Ordered: ordered Referrals: Gastroenterology. Evaluate and treat Appointment date/timeframe: 03/14/2019 Referral Ordered: ordered Esophagus/Barium Swallow Referral Referred To: ordered BENNY FAY MD [address] [place], [address] [phone] Ordered: Referrals: Speech Therapy. BENNY FAY MD. Evaluate and treat Appointment date/timeframe: 02/20/2016 Referral Ordered: ordered . Otolaryngology. Consult and treat. Appointment date/timeframe: 3 Months Referral Referred To: ordered JONAS VANN [address] [place], [address] [phone] Ordered: JONAS VANN. Urology. Consult and treat. Appointment date/timeframe: 05/30/2013 Referral Referred [facility]: [facility] [address] [place], [address] [phone] Ordered: WILDER STEPHENS. Dermatology. Consult and treat. Appointment date/timeframe: 1 Month Referral Ordered: ordered . Dermatology. Consult and treat. 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 hypertension Reviewed the IPPE and found no Related [...] exam negative.Annual exam- TodayPatient is client with [facility]. Blood work 03/16/18Colonoscopy- not indicatedFlu vaccine- given todayPneumonia vaccine- not indicatedTetanus vaccine- Given todayPSA testing- not indicatedEye exam- not cooperative for exam, they are looking for new provider for testingHearing Exam-not indicated Pt is stable and doing well, no changes Related to Dysphagia, unspecified made at this visit. type recheck in one month Related to Soft tissue swelling Due to water intoxication. Fluid Related to Anemia restriction - 1 liter per day. Continue with 1 liter fluid restriction. Related to Hyponatremia Monitor intake. Improved. However patient picks at toe Related [...]
--- OUTSIDE RECORDS SUMMARY | 2020-01-16 13:50 | XMS REPORT | Continuity of Care Document ---
:1980 Author Organization 0001 - S [facility] Address [address] [place] [address] Phone Care Team Providers Name Role Phone BREE OLIVER NP Unavailable Unavailable Allergies, Adverse Reactions, Alerts Substance Reaction Status Substance Type Unknown WARNIN allergy(ies) could not be collected because the type is not supported. Please contact [facility] practice for further details. Medications Medication Instructions [...] po - Active mg/5 mL oral liquid [id number] prn cough or congestion. 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 54 54-[address], Street, [address]. [place] tel:[phone] [place], [address] tel:[phone] 2019 [facility] [employer], [facility] 54 96-[address], [place], [address]. [place] tel:[phone] [place], [address], [place] tel:[phone] 0001 - [facility] Hyponatremia Kwadwo-0 PATEL S Inc, Primary 8-202 KEVIN. 54 33-57 Care 0 [facility], [place], [place], [place] [address]. [place], tel:[phone], [place] [address] tel:[phone] 0001 - [facility] Nov-1 [employer]ulu[employer]comS Inc, Primary 2-201 KEVIN. 54 33-57 Care 9 [facility], [place], [place] [address]. 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 54 33-57 Care 9 [facility], [place], [place] [address]. [place], tel:[phone], [address] tel:[phone] 0001 - [facility] Encounter for Oct-1 [employer], Primary immunization 4-201 BREE. 54 33-57 [facility] 9 [place], [place], [facility]. [place] tel:[phone] [place], [address], [place] tel:[phone] 0001 - [facility] Hyponatremia Sep-3 [facility] [employer], Primary 0-201 BREE. 54 33-57 Care 9 [place], [place], [facility]. [place] tel:[phone] [place], [address], [place] tel:[phone] 0001 - [facility] Sep-2 PATEL [facility]HS Inc, Primary 4-201 KEVIN. 54 33-57 Care 9 [facility], [place], [place], [place] [address]. [place], tel:[phone], [place] [address] tel:[phone] 0001 - [facility] Encounter for Sep-1 RISING [facility]HS Inc, Primary Medicare annual 9-201 BREE. 54 33-57 Care wellness 9 [facility], [facility] [place]allow[place], [place], Street, nail bed of finger [address]. [place] of right tel:[phone] [place], handHyponatremiaEs [address], [place] sential (primary) tel:[phone] hypertensionBMI [phone] 33.0-33.9,adultMod erate mental retardation 0001 - [facility] Sep-1 ROSSY [employer], Primary 3-201 [place]. 33-57 Care 9 54 [facility], [place], [place], Street, [address]. [place] tel:[phone] [place], [address], [place] tel:[phone] 0001 - [facility] Aug-0 ROSSY [employer], Primary 9- [place]. 33-57 Care 9 54 [facility], [place], Street, [address]. [place] tel:[phone] [place], [address], [place] tel:[phone] 0001 - [facility] Mt-2 [employer], Primary 4-201 KEVIN. 54 33- Care 9 [facility], [place], [place] [address]. [place], tel:[phone], [place] [address] tel:[phone] 0001 - [facility] Dermatitis May-2 [employer], Primary 0-201 [place]. 42 - Care 9 [facility], [place], [place], [place] [address]. [place], tel:[phone], [place] [address] tel:[phone] 0001 - [facility] Vomiting in Apr-1 [employer], Primary adultRash 5-201 [place]. 42 - Care 9 [facility], [place], [place] [address]. [place], tel:[phone], [place] [address] tel:[phone] 0001 - [facility] Apr-0 [employer], Primary 9-201 KEVIN. 54 33-57 Care 9 [facility], Tano Fonseca [facility], Street, [place], [place] [address]. [place], tel:[phone], [place] [address] tel:[phone] 0001 - [facility] Non-intractable Apr-0 PATEL compropago [facility], Primary vomiting without 2-201 KEVIN. 54 33-57 Care nausea, 9 [facility], Tanozoraida Fonseca unspecified [facility], Street, vomiting type [place], [place], [place] [address]. [place], tel:[phone], [place] [address] tel:[phone] 0001 - [facility] Moderate mental Oct-3 [facility], Primary retardationPsychog 1-201 KEVIN. 54 33-57 Care enic 8 [facility], Tanozoraida Fonseca polydipsiaBody [facility], [place], mass index (BMI) [place], [place], [place] 32.0-32.9, adult [address]. [place], tel:[phone], [place] [address] tel:[phone] 0001 [facility] Fall Risk Sep- RISING compropago [facility], Primary AssessmentEncounte 2-201 BREE. 54 33-57 Care r for Medicare 8 [facility] annual wellness [place], [place], [place], [place] [address]. [place] immunizationBody tel:[phone] [place], mass index (BMI) [address], [place] 32.0-32.9, adult tel:[phone] 0001 - [facility] Syncope, March- [employer]DA [employer] [facility], Primary unspecified 6-201 KEVIN. 54 33-57 Care syncope typeBenign 8 [facility] [place] hypertension [facility], [place], [place] [address]. [place], tel:[phone], [place] [address] tel:[phone] 0001 - [facility] Preoperative Nov- PATEL [employer], Primary general physical 0-201 KEVIN. 54 33-57 Care examinationDental 8 [facility] Tano Fonseca caries [facility], [place], [place] [address]. [place], tel:[phone], [place] [address] tel:[phone] 0001 - [facility] Oct- PATEL UHS Inc, Primary 9-201 KEVIN. 54 33-[address] [place] [address], [place], [place], [place] [address]. [place], tel:[phone], [place] [address] tel:[phone] 0001 - [facility] Aug-2 RISING UHS Inc, Primary 2-201 BREE. 54 33-[address] [place] [address], [place], [address]. [place] tel:[phone] [place], [address], [place] tel:[phone] 0001 - [facility] Encounter for Jun-0 PATEL [facility]HS Inc, Primary Medicare annual 8- KEVIN. 54 33-[address] [facility], [place], [place], [place], [facility] [address]. [place], mass index (BMI) tel:[phone], [place] 35.0-35.9, adult [address] tel:[phone] 0001 - [facility] Mt-2 RISING [facility]HS Inc, Primary 0-201 BREE. 54 -[address], [place], [address]. [place] tel:[phone] [place], [address], [place] tel:[phone] 0001 - [facility] Naun-1 MICHAEL [facility] Inc, Primary 4-201 SIENA. 260 33-57 Care [address] [place] [address], [facility], [place], [place] [address]. [place], tel:[phone], [place] [address] tel:[phone] 0001 - [facility] Dysphagia, Naun-0 MICHAEL [facility] Inc, Primary unspecified type 5-201 SIENA. 260 33-57 Care [address] [place] [address], [facility], [place], [place] [address]. [place], tel:[phone], [place] [address] tel:[phone] 0001 - [facility] Anemia, Mar-1 [employer], Primary unspecified 3-201 KEVIN. 54 33-57 Care typeHyperthyroidis 7 [facility], [facility], [place], [place], [place] [address]. [place], tel:[phone], [place] [address] tel:[phone] 0001 - S Nov-2 [employer], Primary 1-201 KEVIN. 54 33-57 Care 6 [facility], [facility], [place], [place], [place] [address]. [place], tel:[phone], [place] [address] tel:[phone] 0001 - S Oct-1 RISING [employer], Primary 4-201 BREE. 54 33-57 Care 6 [facility], [place], [place] [address]. [place] tel:[phone] [place], [address] [place] [address], tel:[phone] 0001 - S Essential Sep-2 [employer], Primary (primary) 1-201 KEVIN. 54 33-[address] [facility], [place], [place] [address]. [place], tel:[phone], [place] [address] tel:[phone] 0001 - S Self induced Aug-2 [employer], Primary vomiting 5-201 KEVIN. 54 33-57 Care 6 [facility], [place], [place] [address]. [place], tel:[phone], [place] [address] tel:[phone] 0001 - S Mt-0 [employer], Primary 8-201 KEVIN. 54 33-57 Care 6 [facility], [place], [place] [address]. [place], tel:[phone], [place] [address] tel:[phone] 0001 - S Hypertension, Naun-2 [employer], Primary benignSuppurative 1-201 KEVIN. 54 33-57 Care otitis media of 6 [facility] both ears, [facility], Street, unspecified [place], [place], [place] chronicity [address]. [place], tel:[phone], [place] [address] tel:[phone] 0001 - S Hypertension, Naun-0 [employer], Primary benignAcute 7 KEVIN. 54 33-57 Care suppurative otitis 6 [facility] media of both ears [facility], [place], without [place], [place], [place] spontaneous [address]. [place], rupture of tel:[phone], [place] tympanic [address] tel:[phone] membranes, [phone] recurrence not specified 0001 - S Benign March- [employer] Inc, Primary hypertensionRashMi KEVIN. 54 33-57 Care ld dehydration 6 [facility], [facility], [place], [place], [place] [address]. [place], tel:[phone], [place] [address] tel:[phone] 0001 - S Benign May- [employer], Primary hypertension 3- KEVIN. 54 33-57 Care 6 [facility], [facility], [place], [place], [place] [address]. [place], tel:[phone], [place] [address] tel:[phone] 0001 - S Dysphagia, Apr-0 [employer], Primary unspecified type - KEVIN. 54 33-[address] [place] [address], [place], [place] [address]. [place], tel:[phone], [place] [address] tel:[phone] 0001 - S Encounter for Mar-2 [employer] Inc, Primary Medicare annual KEVIN. 54 33-57 Care wellness 6 [facility] examBenign [facility], [place], hypertensionDyspha [place], [place], [place] shila, unspecified [address]. [place], typeMental tel:[phone], retardation [address] tel:[phone] 0001 - S Pre procedural Sep-1 [employer], Primary general physical 6-201 KEVIN. 54 33-57 Care examDental 5 [address] , [facility] painHypertensionMo [facility], Street, [facility] mental [place], [place], [place] retardation [address]. [place], tel:[phone], [place] [address] tel:[phone] 0001 - S Gynecomastia, male Aug- PATEL S Inc, Primary 1-201 KEVIN. 54 33-57 Care 5 Main , [facility], [place], [place] [address]. [place], tel:[phone], [place] [address] tel:[phone] 0001 - S Moderate mental Fe- [employer], Primary retardationRoutine 8-201 LUCIANA. 59 33-57 Care medical exam 5 [facility], [facility], [place], [place] [address]. [place], tel:[phone], [place] [address] tel:[phone] 0001 - S Kwadwo- [employer]LO[employer]aringS [employer], Primary 5-201 LUCIANA. 59 33-57 Care 5 [facility], [facility], [place], [place] [address]. [place], tel:[phone], [place] [address] tel:[phone] 0001 - [facility] Soft tissue Nov-2 [employer], Primary swelling 4-201 LUCIANA. 59 33-57 Care 4 Main , [facility], [place], [place] [address]. [place], tel:[phone], [place] [address] tel:[phone] 0001 - S AnemiaHyponatremia Oct-1 [employer]Med[employer] Inc, Primary 7-201 LILLIAN. 33-57 Care 4 [address] [facility] [address], [place], [place] [address]. [place], tel:[phone], [place] [address] tel:[phone] 0001 - S HyponatremiaAnemia Oct-1 [employer], Primary Influenza Vaccine 6-201 LILLIAN. 33-57 Care 4 [address] [facility] [address] [place], [place] [address]. [place], tel:[phone], [place] [address] tel:[phone] 0001 - [facility] CellulitisCellulit Aug-0 SCHECTER S Inc, Primary is/abscess, digit 5-201 LILLIAN. 33-57 Care NOS 4 [address] [facility] [address] [place], [place] [address]. [place], tel:[phone], [place] [address] tel:[phone] 0001 - S HyponatremiaPsycho May-2 GLOSENGER S Inc, Primary genic 8-201 LUCIANA. 59 33-57 Care polydipsiaHypercho [address] [place] [address] lesterolemia, pure [facility], [place], [place] [address]. [place], tel:[phone], [place] [address] tel:[phone] 0001 - [facility] Cellulitis Mt-2 SCHECTER Ther[employer] Inc, Primary 2-201 LILLIAN. 33-57 Care 4 [address] [facility] [place], [place] [address]. [place], tel:[phone], [place] [address] tel:[phone] 0001 - S Dermatophytosis, Mt-0 [employer] Inc, Primary foot 2-201 KEVIN. 54 33-57 Care 4 [facility], [facility], [place], [place] [address]. [place], tel:[phone], [place] [address] tel:[phone] 0001 - S Naun-2 [employer], Primary 4-201 KEVIN. 54 33-57 Care 4 [facility], [place], [place] [address]. [place], tel:[phone], [place] [address] tel:[phone] 0001 - [facility] Stomatitis May- [employer] Inc, Primary 9-201 KEVIN. 54 33-57 Care 4 [facility], [facility], [place], [place] [address]. [place], tel:[phone], [place] [address] tel:[phone] 0001 - S Tachycardia [employer], Primary KEVIN. 54 33-57 Care 4 [facility], [facility], [place], [place] [address]. [place], tel:[phone], [place] [address] tel:[phone] 0001 - S Examination, GLOSENGER S [facility], Primary routine LUCIANA. 59 33-57 Care medicalHyperlipide 4 [facility], [facility] NEC/NOSObesity [facility], [place], NOSHyponatremiaHyp [place], [place], [place] ertensionRoutine [address]. [place], Medical Exam tel:[phone], [place] [address] tel:[phone] 0001 - S Foot pain, left Oct- [employer] Inc, Primary KEVIN. 54 33-57 Care 3 [facility], [facility], [place], [place] [address]. [place], tel:[phone], [place] [address] tel:[phone] 0001 - S Psychogenic Sep- [employer] Inc, Primary polydipsiaHyponatr KEVIN. 54 33-57 Care emia 3 [facility], [facility], [place], [place] [address]. [place], tel:[phone], [place] [address] tel:[phone] 0001 - S HyponatremiaOtalgi Aug- [employer] Inc, Primary a of left ear KEVIN. 54 33-57 Care 3 [facility], [facility], [place], [place] [address]. [place], tel:[phone], [place] [address] tel:[phone] 0001 - S Incontinence, PATEL [facility] Inc, Primary urinary NOS 9-201 KEVIN. 54 33-57 Care 3 [address] , [facility], [place], [place] [address]. [place], tel:[phone], [place] [address] tel:[phone] 0001 - [facility] Enuresis Apr- [facility] Inc, Primary 4-201 KEVIN. 54 33-57 Care 3 [address] , [facility], [place], [place] [address]. [place], tel:[phone], [place] [address] tel:[phone] 0001 - [facility] Routine Medical Nov- [facility], Primary ExamADHD 1-201 KEVIN. 54 33-57 Care (attention deficit 3 Main , [facility] hyperactivity [facility], Street, disorder)Moderate [place], [place], [facility] [address]. [place], retardationAcneAst tel:[phone], igmatismHypospadia [address] tel:+60 sRoutine Medical [id number] ExamRoutine Medical ExamDisorder, attention deficit w/hyperactivityAcn e NEC 0001 - [facility] Sinusitis, acute GLOSENGER [facility], Primary frontalSinusitis, 4-201 LUCIANA. 59 Provider: 33-57 Care acute frontal [address], LUCIANA [facility], [facility], [place], [place], [address] [facility] [address]. [facility], [place], tel:[phone] [facility] [address], [place] [address] [place], [address]. tel:+60 tel:[phone] 0001 - S Nov- GLOSENGER S Inc, Primary 4-201 LUCIANA. 59 33-57 Care 3 [address] , [facility], [place], [place] [address]. [place], tel:[phone], [place] [address] tel:[phone] 0001 - [facility] Routine Medical GLOSENGER S Inc, Primary ExamRoutine 2-201 LUCIANA. 59 33-57 Care Medical [address] , [facility] ExamRoutine [facility], Street, Medical Exam [place], [place] [address]. [place], tel:[phone], [place] [address] tel:[phone] 0001 - [facility] Fatigue / Malaise Apr-0 GLOSENGER [facility] Inc, Primary 3-201 LUCIANA. 59 33-[address], Tano Fonseca [facility], [place], [place] [address]. [place], tel:[phone], [place] [address] tel:[phone] 0001 - S Routine Medical Kwadwo-0 GLOSENGER S Inc, Primary ExamURI (upper 9-201 LUCIANA. 59 33-57 Care respiratory [address], Tano [place] infection)Routine [facility], [place], Medical [place], [place], [place] ExamRoutine [address]. [place], Medical ExamUpper tel:[phone], Respiratory [address] tel:+60 Infection, Acute [id number] 0001 - [facility] Cerumen Dec-1 GLOSENGER S Inc, Primary impactionImpacted 2-201 LUCIANA. 59 33-57 Care cerumen [address], Tano [facility], [place], [place], [place] [address]. [place], tel:[phone], [place] [address] tel:[phone] 0001 - [facility] SinusitisSinusitis Nov-0 GLOSENGER Referring [facility] Inc, Primary , chronic NOS 7-201 LUCIANA. 59 Provider: 33-[address], LUCIANA Tano [facility], GLOSENGER, [place], [place], [address] [place] [address]. [facility], [place], tel:[phone] [facility] [address], [place] [address] [place], [address]. tel:+60 tel:[phone] 0001 - S Cellulitis/abscess Naun-2 GLOSENGER [facility] Inc, Primary , digit NOSSkin 0-201 LUCIANA. 59 33-57 Care irritationCellulit [address], Tano Fonseca is/abscess, digit [facility], [place], NOSDisorder, skin [place], [place] [address]. [place], tel:[phone], [place] [address] tel:[phone] [facility] - [facility] ParonychiaCellulit Naun-1 GLOSENGER [facility] Inc, Primary is/abscess, digit 3-201 LUCIANA. 59 33-57 Care NOS 1 [facility], [facility], [place], [place] [address]. [place], tel:[phone], [place] [address] tel:[phone] 0001 [facility] Routine Medical Mar-1 GLOSENGER [facility] Inc, Primary ExamRoutine 1-201 LUCIANA. 59 33-57 Care Medical Exam 1 [facility], [place], [place] [address]. [place], tel:[phone], [place] [address] tel:[phone] 0001 [facility] Routine Medical Feb-1 GLOSENGER [facility] Inc, Primary Exam 6-201 LUCIANA. 59 33-57 Care 1 [facility], [facility], [place], [place] [address]. [place], tel:[phone], [place] [address] tel:[phone] 0001 [facility] Routine Medical Kwadwo-1 GLOSENGER [facility] Inc, Primary Exam 7-201 LUCIANA. 59 33-57 Care 1 [facility], [place], [place] [address]. [place], tel:[phone], [place] [address] tel:[phone] 0001 [facility] Cellulitis/abscess Dec-2 GLOSENGER [facility] Inc, Primary finger, 1-201 LUCIANA. 59 33-57 Care onychia/paronychia 0 [facility], [place], [place] [address]. [place], tel:[phone], [place] [address] tel:[phone] 0001 [facility] Oct-1 CANDOR [employer] Inc, Primary 9-201 NURSE. . 33-57 Care 0 [place], [address], [place] tel:[phone] 0001 - S Hyperlipidemia GLOSENGER S Inc, Primary NEC/NOSDermatophyt 3-201 LUCIANA. 59 33-57 Care osis, foot 0 [facility], [place], [place], [place] [address]. [place], tel:[phone], [place] [address] tel:[phone] 0001 - S Dysfunction, Nov-0 SKIFF COLTON. S Inc, Primary Eustachian 3-200 S PC 119 33-57 Care tubeDermatophytosi 9 [facility], site NOS [place], [place], [place] [address]. [place], tel:[phone], [place] [address] tel:[phone] 0001 - S Hypercholesterolem PATEL S Inc, Primary ia, pure 9-200 KEVIN. 54 33-[address] [place] [address], [place], [place] [address]. [place], tel:[phone], [place] [address] tel:[phone] 0001 - S Dermatitis NOS PATEL S Inc, Primary 1-200 KEVIN. 54 33-[address] [place] [address], [place], [place] [address]. [place], tel:[phone], [place] [address] tel:[phone] 0001 - S Hyperlipidemia Dec- MARIA D S Inc, Primary NEC/NOSObesity 5-200 MARYA. 42 W 33-57 Care NOSSyndrome, [address] [place] [address] organic brain [facility], [place], [facility] attention deficit [address]. [place], w/o tel:[phone], [place] hyperactivityAcne [address] tel:+[phone] NECRetardation, [id number] mental, moderate 0001 - S Dermatophytosis, Dec- PATEL S Inc, Primary site NOS 7-200 KEVIN. 54 33-57 Care 9 [facility], Street, [place], [place] [address]. 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 54 Provider: - Care sites, acute NEC 8 [place], [facility], [place], [address]. 54 [facility] tel:[phone] , [place], [address] [place], [address], [place], [address]. tel:+ tel:[phone] 0001 - [facility] Hyperlipidemia Oct-2 MARIA D [facility] Inc, Primary NEC/NOSDisorder, 7-200 MARYA. 42 W Care attention deficit 8 [facility] w/o [facility], Street, hyperactivityObesi [place]Stan[place], [place], [place] ty NOSRetardation, [address]. [place], mental, moderate tel:[phone], [place] [address] tel:[phone] 0001 - [facility] Herpes zoster, Sep-2 [facility], Primary uncomplicated 6-200 KEVIN. 54 Provider: Care [address] [place] [address] KEVIN Freedman [facility], PATEL , [place], [place], 54 [facility] [address]. [facility], [place], tel:[phone] [place], [address], [place] [address] [place], [address]. tel:+60 tel:[phone] 0001 - [facility] Obesity Mt-1 [facility] Inc, Primary NOSDermatophytosis 7-200 MARY. 54 Care , footSyndrome, 8 [facility] organic brain [place], [place], [place], NOSHyperlipidemia [address]. [place] NEC/NOS tel:[phone] [place], [address], [place] tel:[phone] 0001 - [facility] Malaise and May-0 [facility] Inc, Primary fatigue NEC 7-200 KEVIN. 54 33-57 Care [address] , [facility], [place], [place] [address]. 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 54 33-57 Care attention deficit 7 Main , [facility] w/o hyperactivity [facility], [place], [place] [address]. [place], tel:[phone], [place] [address] tel:[phone] 0001 - S Dermatophytosis, Mt-2 MARIA D [facility] Inc, Primary foot 6-200 MARYA. 42 W 33-57 Care 7 [facility], [facility], [place], [place], [place] [address]. [place], [place], tel:[phone], [place] [address] tel:[phone] 0001 - [facility] Disorder, Apr-2 [email or web address], Primary attention deficit 4-200 KEVIN. 54 33-57 Care w/hyperactivitySyn 7 [facility], [facility] drome, organic [facility], [place], brain [place], [place], [place] [address]. [place], [place], tel:[phone], [place] [address] tel:[phone] 0001 - S Oct-2 [email or web address], Primary 4-200 KEVIN. 54 33-57 Care 6 [facility], [facility], [place], [place], [place] [address]. [place], tel:[phone], [place] [address] tel:[phone] 0001 - [facility] Malaise and Mar-2 [email or web address], Primary fatigue NEC 0-200 KEVIN. 54 33-57 Care 6 [facility], [facility], [place], [place], [place] [address]. [place], tel:[phone], [place] [address] tel:[phone] 0001 - S Oct-2 [employer], Primary 1-200 NURSE. . 33-[address] [facility], [place], [address], [place] tel:[phone] [facility] [employer] [facility], Primary 9-200 KEVIN. 54 33-57 Care 5 [facility], [facility], [address], [place], [place], [place] [address]. [place], tel:[phone], [place] [address] tel:[phone] [facility] Examination, [employer] [facility], Primary routine 5-200 KEVIN. 54 33-57 Care medicalDisorder, 5 [facility] attention deficit [facility], [place], w/o [place], [place], [place] [address]. [place], [place], [facility] tel:[phone], [place] [facility] [address] tel:[phone] unspecified Family History Family Member Diagnosis Age At Onset Unknown Immunizations Vaccine Date Status Comments Influenza, injectable, administered Source: New Immunization quadrivalent, preservative Record free, split virus Influenza, injectable, administered Source: New Immunization quadrivalent, preservative Record free, split virus Td (adult) preservative free administered Source: New Immunization Record Influenza, injectable, administered Source: Other Provider quadrivalent, preservative free, split virus 2026-7417 Influenza, injectable, administered Note: fluvirin 0.5 ml lot # quadrivalent, preservative [id number] exp 04/08/2017 ; free, split virus 3 years or Source: Other Provider older, [employer]arix Quad [id number] Flu[employer]ix Quadrivalent Syringe administered Source: Source Unspecified [...] Record Payers Payer name Insurance type Covered libertarian ID Authorization(s) Medicare Mc [id number] Medicare Mc [id number] Medicaid He [id number] Medicare A [id number] Medicare B [id number] [place] [id number] Medicare A [id number] Medicare B [id number] Medicaid [facility] [id number] Social History Type Description Quantity Date Captured [...] Referred To: ordered BENNY FAY MD [address] [place], [address] [phone] Ordered: Referrals: Speech Therapy. BENNY FAY MD. Evaluate and treat Appointment date/timeframe: 02/20/2016 Referral Ordered: ordered . Otolaryngology. Consult and treat. Appointment date/timeframe: 3 Months Referral Referred To: ordered JONAS VANN [address] [place], [address] [phone] Ordered: JONAS VANN. Urology. Consult and treat. Appointment date/timeframe: 05/30/2013 Referral Referred [facility]: [facility] [address], [address] [phone] Ordered: WILDER STEPHENS. Dermatology. Consult and treat. 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 Blood work 03/16/18Colonoscopy- not indicatedFlu vaccine- [...]
--- OUTSIDE RECORDS SUMMARY | 2020-01-16 13:51 | XMS REPORT | Continuity of Care Document ---
:1980 Author Organization 0001 - S [facility] Address [address] [place] [address] Phone Care Team Providers Name Role Phone BREE OLIVER NP Unavailable Unavailable Allergies, Adverse Reactions, Alerts Substance Reaction Status Substance Type Unknown WARNIN allergy(ies) could not be collected because the type is not supported. Please contact [facility] practice for further details. Medications Medication Instructions Dosage Effective Status Comments Dates (start - stop) sodium chloride 1 Take 1 pill by - Active gram tablet mouth twice a day Eucerin topical apply to dry skin - Active cream twice a day as needed. pantoprazole 40 mg take 1 tablet by 40 MG - Active tablet,delayed ORAL route every release 24 hours lisinopril 10 mg take 1 tablet by 10 MG - Active tablet ORAL route every day bacitracin 500 apply to affected - Active [...] po - Active mg/5 mL oral liquid [id number] prn cough or congestion. Triple Antibiotic Apply [...] gram tablet mouth twice a day Active Problems Condition Effective Dates (start - stop) [...] Dysfunction, Eustachian tube Acute Infection, up respirat, shore man sites, Acute acute NEC Herpes zoster, uncomplicated [...] Description For Visit Copied on Encounter 2019 [facility] [place], Primary BREE. 54 33-[address], [place], [facility]. [place] tel:[phone] [facility] [address], tel:[phone] 2019 [facility] Hyponatremia Nov- Propers, Primary KEVIN. 54 33-57 Care 0 [facility], [place], [place], [place] [address]. [place], tel:[phone], [address] tel:[phone] 2019 [facility] Propers, Primary KEVIN. 54 33-57 Care 0 [facility], [place], [place], [place] [address]. [place], tel:[phone], [address] tel:[phone] 0001 - [facility] Nov-1 PATEL [facility] Inc, Primary 2-201 KEVIN. 54 33-[address] [place] [address], [place], [place] [address]. 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 54 33-[address] [place] [address], [place], [place] [address]. [place], tel:[phone], [address] tel:+ [phone] 0001 - [facility] Encounter for Oct-1 [facility]ISING [facility] Inc, Primary immunization 4-201 BREE. 54 33-[address] [place] [address], [place], [address]. [place] tel:[phone] [facility] [address], [place] tel:+ [phone] 0001 - [facility] Hyponatremia Sep-3 [facility] Inc, Primary 0-201 BREE. 54 33-[address], [place], [address]. [place] tel:[phone] [place], [address], [place] tel:[phone] 0001 - [facility] Sep-2 PATEL [facility] Inc, Primary 4-201 KEVIN. 54 33-[address] [place] [address], [place], [place] [address]. [place], tel:[phone], [place] [address] tel:[phone] 0001 - [facility] Encounter for Sep-1 [facility] Inc, Primary Medicare annual 9-201 BREE. 54 33-57 Care wellness [address] [place] [address], Street, nail bed of finger [address]. [place] of right tel:[phone] [place], handHyponatremiaEs [address], [place] sential (primary) tel:[phone] hypertensionBMI [id number] 33.0-33.9,adultMod erate mental retardation 0001 - [facility] Sep-1 ROSSY unrivalS Inc, Primary 3-201 [place]. 33-57 Care [address] [place] [address], Street, [address]. [place] tel:[phone] [place], [address], [place] tel:[phone] 0001 - [facility] Aug-0 ROSSY unrivalS Inc, Primary 9-201 [place]. 33-57 Care [address] [place] [address], Street, [address]. [place] tel:[phone] [place], [address], [place] tel:[phone] 0001 - S May-2 toucanBoxS Inc, Primary 4-201 KEVIN. 54 33-[address] [place] [address], [place], [place] [address]. [place], tel:[phone], [place] [address] tel:[phone] 0001 - [facility] Dermatitis May-2 Track[employer] Inc, Primary 0-201 [place]. 42 33-57 Care 9 [place], [place] [address]. [place], tel:[phone], [place] [address] tel:[phone] 0001 - S Vomiting in Apr-1 [employer] Inc, Primary adultRash 5-201 [place]. 42 33-57 Care 9 [place], [place] [address]. [place], tel:[phone], [place] [address] tel:[phone] 0001 - S Non-intractable Apr-0 [employer]S Inc, Primary vomiting without 2-201 KEVIN. 54 33-57 Care nausea, [address] [place] [address] unspecified [facility], Street, vomiting type [place], [place] [address]. [place], tel:[phone], [place] [address] tel:[phone] 0001 - S Moderate mental Oct-3 [employer]canBoxS Inc, Primary retardationPsychog 1-201 KEVIN. 54 33-57 Care enic 8 [facility] polydipsiaBody [facility], Street, mass index (BMI) [place], [place] 32.0-32.9, adult [address]. [place], tel:[phone], [place] [address] tel:[phone] 0001 - [facility] Fall Risk Sep-1 [facility] Inc, Primary AssessmentEncounte 2-201 BREE. 54 33-57 Care r for Medicare 8 [facility], [facility] annual wellness [place], [place], [place] [address]. [place] immunizationBody tel:[phone] [place], mass index (BMI) [address], [place] 32.0-32.9, adult tel:[phone] 0001 - [facility] Syncope, [employer] S Inc, Primary unspecified 6-201 KEVIN. 54 33-57 Care syncope typeBenign 8 [facility] hypertension [facility], [place], [place], [place] [address]. [place], tel:[phone], [place] [address] tel:[phone] 0001 - S Preoperative Kwadwo- [employer] S Inc, Primary general physical 0-201 KEVIN. 54 33-57 Care examinationDental 8 [facility] caries [facility], [place], [place] [address]. [place], tel:[phone], [place] [address] tel:[phone] 0001 - S Aug- [employer] S Inc, Primary 9-201 KEVIN. 54 33-57 Care 7 [facility], [place], [place] [address]. [place], tel:[phone], [place] [address] tel:[phone] 0001 - S Jun-2 [employer] S Inc, Primary 2-201 BREE. 54 33-57 Care 7 [place], [place], [place], [address]. [place] tel:[phone] [place], [address], [place] tel:[phone] 0001 - S Encounter for toucanBoxS Inc, Primary Medicare annual 8-201 KEVIN. 54 33-57 Care wellness 7 [facility] examModerate [facility], [place], [place], [facility] [address]. [place], mass index (BMI) tel:[phone], [place] 35.0-35.9, adult [address] tel:[phone] 0001 - S Mt-2 [facility] Inc, Primary 0-201 BREE. 54 33-57 Care 7 [place], [place], [address]. [place] tel:[phone] [place], [address], [place] tel:[phone] 0001 - S Naun-1 [facility] Inc, Primary 4-201 SIENA. 260 33-57 Care [address] [place] [address], [facility], [place], [place] [address]. [place], tel:[phone], [place] [address] tel:[phone] 0001 - S Dysphagia, Naun-0 [facility] Inc, Primary unspecified type 5-201 SIENA. 260 33-57 Care [address] [place] [address], [facility], [place], [place] [address]. [place], tel:[phone], [place] [address] tel:[phone] 0001 - S Anemia, Jan- [employer]canBoxS Inc, Primary unspecified 3-201 KEVIN. 54 33-57 Care typeHyperthyroidis 7 [facility], [place], [place], [place] [address]. [place], tel:[phone], [place] [address] tel:[phone] 0001 - S Nov-2 [employer] Inc, Primary 1-201 KEVIN. 54 33-57 Care 6 [facility], [place], [place] [address]. [place], tel:[phone], [place] [address] tel:[phone] 0001 - S Oct- [employer] S Inc, Primary 4-201 BREE. 54 33-57 Care 6 [facility], [place], [place], [place], [address]. [place] tel:[phone] [place], [facility] [address], [place] tel:[phone] 0001 - [facility] Essential Sep-2 [employer] Inc, Primary (primary) KEVIN. 54 33-57 Care hypertensionHypona 6 [facility], [facility] tremia [facility], [place], [place], [place] [address]. [place], tel:[phone], [place] [address] tel:[phone] 0001 - [facility] Self induced Aug-2 [employer] Inc, Primary vomiting KEVIN. 54 33-57 Care 6 [facility], [facility], [place], [place] [address]. [place], tel:[phone], [address] tel:[phone] 0001 - [facility] Mt-0 [employer] Inc, Primary KEVIN. 54 33-57 Care 6 [facility], [facility], [place], [place], [place] [address]. [place], tel:[phone], [place] [address] tel:[phone] 0001 - [facility] Hypertension, Naun-2 Fillm Inc, Primary benignSuppurative KEVIN. 54 33-57 Care otitis media of 6 [facility], [place] both ears, [facility], [place], unspecified [place], [place], [place] chronicity [address]. [place], tel:[phone], [place] [address] tel:[phone] 0001 - [facility] Hypertension, Naun-0 [employer] Inc, Primary benignAcute KEVIN. 54 33-57 Care suppurative otitis 6 [facility] media of both ears [facility], [place], without [place], [place] spontaneous [address]. [place], rupture of tel:[phone], [place] tympanic [address] tel:[phone], [phone] recurrence not specified 0001 - [facility] Benign May- [employer] Inc, Primary hypertensionRashMi KEVIN. 54 33-57 Care ld dehydration [address] , [facility], [place], [place] [address]. [place], tel:[phone], [place] [address] tel:[phone] 0001 - S Benign March- PATEL S Inc, Primary hypertension 3 KEVIN. 54 33-57 Care 6 [facility], [facility], [place], [place] [address]. [place], tel:[phone], [place] [address] tel:[phone] 0001 - S Dysphagia, Apr-0 PATEL S Inc, Primary unspecified type KEVIN. 54 33-57 Care 6 [facility], [facility], [place], [place] [address]. [place], tel:[phone], [place] [address] tel:[phone] 0001 - S Encounter for Jan-2 JORGE S Inc, Primary Medicare annual KEVIN. 54 33-57 Care wellness 6 [facility], [facility] examBenign [facility], [place], hypertensionDyspha [place], [place]ila, unspecified [address]. [place], typeMental tel:[phone], [place] retardation [address] tel:[phone] 0001 - S Pre procedural Sep- PATEL unrivalS Inc, Primary general physical KEVIN. 54 33-57 Care examDental [address] , [facility] painHypertensionMo [facility], Street, derate mental [place], [place] retardation [address]. [place], tel:[phone], [place] [address] tel:[phone] 0001 - S Gynecomastia, male Jun- PATEL unrivalS Inc, Primary KEVIN. 54 33-57 Care [address] , [facility], [place], [place] [address]. [place], tel:[phone], [place] [address] tel:[phone] 0001 - S Moderate mental Feb- GLOSENGER S Inc, Primary retardationRoutine 8-201 LUCIANA. 59 33-57 Care medical exam 5 [facility], [facility], [place], [place] [address]. [place], tel:[phone], [place] [address] tel:[phone] 0001 - unrivalS Kwadwo- GLOSENWaywire NetworksS Inc, Primary 5-201 LUCIANA. 59 33-57 Care 5 [facility], [facility], [place], [place] [address]. [place], tel:[phone], [place] [address] tel:[phone] 0001 - [facility] Soft tissue Nov-2 [employer] Inc, Primary swelling 4-201 LUCIANA. 59 33-57 Care 4 [facility], [facility], [place], [place] [address]. [place], tel:[phone], [place] [address] tel:[phone] 0001 - [facility] AnemiaHyponatremia Oct- deviantARTCTAdvice Wallet, Primary 7-201 LILLIAN. 33-57 Care 4 [address] [facility] [employer] [facility] [place], [place] [address]. [place], tel:[phone], [place] [address] tel:[phone] 0001 - [facility] HyponatremiaAnemia Oct-1 deviantARTCTAdvice Wallet, Primary Influenza Vaccine 6-201 LILLIAN. -57 Care 4 [address] [employer] [place], [place] [address]. [place], tel:[phone], [place] [address] tel:[phone] 0001 - [facility] CellulitisCellulit Aug-0 deviantARTCTAdvice Wallet, Primary is/abscess, digit 5-201 LILLIAN. 33-57 Care NOS 4 [address] [place], [place] [address]. [place], tel:[phone], [place] [address] tel:[phone] 0001 - S HyponatremiaPsycho May-2 GLOLumedyne TechnologiesS Inc, Primary genic 8-201 LUCIANA. 59 33-57 Care polydipsiaHypercho [address] , [facility] lesterolemia, pure [facility], [place], [place] [address]. [place], tel:[phone], [place] [address] tel:[phone] 0001 - S Cellulitis May- SCHECTER unrivalS Inc, Primary 2-201 LILLIAN. 33-57 Care [address] [facility] [address], [place], [place] [address]. [place], tel:[phone], [place] [address] tel:[phone] 0001 - S Dermatophytosis, May-0 [employer] Inc, Primary foot 2-201 KEVIN. 54 33-57 Care 4 [facility], [facility], [place], [place] [address]. [place], tel:[phone], [place] [address] tel:[phone] 0001 - S Naun- [employer] Inc, Primary 4-201 KEVIN. 54 33-57 Care 4 [facility], [facility], [place], [place] [address]. [place], tel:[phone], [place] [address] tel:[phone] 0001 - S Stomatitis March- [employer] Inc, Primary 9- KEVIN. 54 33-57 Care 4 [facility], [facility], [place], [place] [address]. [place], tel:[phone], [place] [address] tel:[phone] 0001 - S Tachycardia March-0 [employer] Inc, Primary 9-201 KEVIN. 54 33-57 Care 4 [facility], [facility], [place], [place] [address]. [place], tel:[phone], [place] [address] tel:[phone] 0001 - S Examination, COLOURloversS Inc, Primary routine 2-201 LUCIANA. 59 33-57 Care medicalHyperlipide 4 [facility], [facility] NEC/NOSObesity [facility], [place], NOSHyponatremiaHyp [place], [place] ertensionRoutine [address]. [place], Medical Exam tel:[phone], [place] [address] tel:[phone] 0001 - S Foot pain, left Oct- [employer] Inc, Primary 2 KEVIN. 54 33-57 Care 3 [facility], [facility], [place], [place] [address]. [place], tel:[phone], [place] [address] tel:[phone] 0001 - S Psychogenic [employer] Inc, Primary polydipsiaHyponatr KEVIN. 54 33-57 Care emia 3 [facility], [facility], [place], [place] [address]. [place], tel:[phone], [place] [address] tel:[phone] 0001 - S HyponatremiaOtalgi [employer] Inc, Primary a of left ear KEVIN. 54 33-57 Care 3 [facility], [facility], [place], [place], [place] [address]. [place], tel:[phone], [place] [address] tel:[phone] 0001 - S Incontinence, [employer] Inc, Primary urinary NOS KEVIN. 54 33-[address] [place] [address], [facility], [place], [place], [place] [address]. [place], tel:[phone], [place] [address] tel:[phone] 0001 - S Enuresis Apr- [employer] Inc, Primary KEVIN. 54 33-57 Care 3 [facility], [facility], [place], [place], [place] [address]. [place], tel:[phone], [place] [address] tel:[phone] 0001 - S Routine Medical toucan[employer]S Inc, Primary ExamADHD 1-201 KEVIN. 54 33-57 Care (attention deficit [address], [facility] hyperactivity [facility], Street, disorder)Moderate [place], [place] mental [address]. [place], retardationAcneAst tel:[phone], igmatismHypospadia [address] tel:[phone] [facility] Medical [phone] ExamRoutine Medical ExamDisorder, attention deficit w/hyperactivityAcn e NEC 0001 - [facility] Sinusitis, acute GLOSENGER Referring S Inc, Primary frontalSinusitis, 4-201 LUCIANA. 59 Provider: 33-57 Care acute frontal [address], LUCIANA [facility], GLOSENGER, [place], [place], [address] [place] [address]. [facility], [place], tel:[phone] [place], [address], [place] [address] [place], [address]. tel:+60 tel:[phone] 0001 - S Nov- GLOSENGER S Inc, Primary 4-201 LUCIANA. 59 33-[address], [facility], [place], [place], [place] [address]. [place], tel:[phone], [place] [address] tel:[phone] 0001 - [facility] Routine Medical Sep- GLOSENGER S Inc, Primary ExamRoutine 2-201 LUCIANA. 59 33-57 Care Medical [address] , [facility] ExamRoutine [facility], [place], Medical Exam [place], [place] [address]. [place], tel:[phone], [place] [address] tel:[phone] 0001 - S Fatigue / Malaise Apr-0 GLOSENGER S Inc, Primary 3-201 LUCIANA. 59 33-[address], [facility], [place], [place] [address]. [place], tel:[phone], [place] [address] tel:[phone] 0001 - [facility] Routine Medical Kwadwo-0 GLOSENGER S Inc, Primary ExamURI (upper 9-201 LUCIANA. 59 33-57 Care [address], [place] infection)Routine [facility], [place], [place], [place] ExamRoutine [address]. [place], Medical ExamUpper tel:[phone], Respiratory [address] tel:+60 Infection, Acute [phone] 0001 - [facility] Cerumen Dec-1 GLOSENGER S Inc, Primary impactionImpacted 2-201 LUCIANA. 59 33-57 Care cerumen [address] , [facility], [place], [place] [address]. [place], tel:[phone], [place] [address] tel:[phone] 0001 - [facility] SinusitisSinusitis Nov-0 GLOSENGER Referring S Inc, Primary , chronic NOS 7-201 LUCIANA. 59 Provider: 33-[address], LUCIANA [facility], GLOSENGER, [place], [place], [address] [place] [address]. [facility], [place], [place], tel:[phone] [place], [address], [place] [address] [place], [address]. tel:+60 tel:[phone] 0001 - [facility] Cellulitis/abscess Naun-2 GLOSENGER S Inc, Primary , digit NOSSkin 0-201 LUCIANA. 59 33-57 Care irritationCellulit 1 [facility] is/abscess, digit [facility], [place], NOSDisorder, skin [place], [place] NOS [address]. [place], tel:[phone], [place] [address] tel:[phone] 0001 [facility] ParonychiaCellulit Naun-1 GLOSENGER S Inc, Primary is/abscess, digit 3-201 LUCIANA. 59 33-57 Care NOS [address], [facility], [place], [place] [address]. [place], tel:[phone], [place] [address] tel:[phone] 0001 - [facility] Routine Medical Mar-1 GLOSENGER S Inc, Primary ExamRoutine 1-201 LUCIANA. 59 33-57 Care Medical Exam [address] , [facility], [place], [place], [place] [address]. [place], tel:[phone], [place] [address] tel:[phone] 0001 - [facility] Routine Medical GLOSENGER S Inc, Primary Exam 6-201 LUCIANA. 59 33-57 Care 1 [facility], [place], [place] [address]. [place], tel:[phone], [place] [address] tel:[phone] 0001 - [facility] Routine Medical [facility] Inc, Primary Exam 7-201 LUCIANA. 59 33-57 Care 1 [facility], [place], [place] [address]. [place], tel:[phone], [place] [address] tel:[phone] 2019 - [facility] Cellulitis/abscess Dec-2 [facility], Primary finger, 1-201 LUCIANA. 59 33-57 Care onychia/paronychia 0 [facility], [place], [place], [place] [address]. [place], tel:[phone], [place] [address] tel:[phone] 2019 - [facility] Oct- [facility], Primary 9-201 NURSE. . 33-57 Care 0 [place], [address], tel:[phone] 2019 - [facility] Hyperlipidemia [facility] Inc, Primary NEC/NOSDermatophyt 3-201 LUCIANA. 59 33-57 Care osis, foot 0 [facility], [place], [place], [place] [address]. [place], tel:[phone], [place] [address] tel:[phone] 2019 - [facility] Dysfunction, Nov-0 SKIFF COLTON. [facility] Inc, Primary Eustachian 3-200 [facility] PC 119 33-57 Care tubeDermatophytosi 9 [facility], site NOS [place], [place], [place] [address]. [place], tel:[phone], [place] [address] tel:[phone] 0001 - S Hypercholesterolem PATEL S Inc, Primary ia, pure 9-200 KEVIN. 54 - Care 9 [facility], [place], [place] [address]. [place], tel:[phone], [place] [address] tel:[phone] 0001 - S Dermatitis NOS [facility] Inc, Primary 1-200 KEVIN. 54 - Care [address] [place] [address], [place], [place] [address]. [place], tel:[phone], [place] [address] tel:[phone] 0001 - S Hyperlipidemia MARIA D S Inc, Primary NEC/NOSObesity 5-200 MARYA. 42 W Care NOSSyndrome, [address] [place] [address] organic brain [facility], [place], [place], [place], [place] attention deficit [address]. [place], w/o tel:[phone], hyperactivityAcne [address] tel:+160 NECRetardation, [phone] mental, moderate 0001 - S Dermatophytosis, PATEL S Inc, Primary site NOS 7-200 KEVIN. 54 - Care [address] [place] [address], [place], [place] [address]. [place], tel:[phone], [place] [address] tel:[phone] 0001 - S Infection, up WILL Referring S Inc, Primary respirat, shore man 0-200 MARY. 54 Provider: -57 Care sites, acute NEC 8 [facility], [place], [place], [place], [place], [address]. 54 [facility] tel:[phone] , [place], [place], [address] [place] [address], [facility], [address]. tel:+60 tel:[phone] 0001 - S Hyperlipidemia Oct-2 MARIA D S Inc, Primary NEC/NOSDisorder, 7-200 MARYA. 42 W Care attention deficit [address] , [place] [address]onseca w/o [facility], Street, hyperactivityObesi [place], [place], [place] ty NOSRetardation, [address]. [place], mental, moderate tel:[phone], [place] [address] tel:[phone] 0001 - S Herpes zoster, Sep-2 PATEL [facility] Inc, Primary uncomplicated 6-200 KEVIN. 54 Provider: Care 8 [facility], [facility], JORGE [place], [place], [place], [address] [place] [address]. [facility], [place], tel:[phone] [place], [address], [place] [address] [place], [address]. tel:+60 tel:[phone] 0001 - S Obesity May- WILL S Inc, Primary NOSDermatophytosis 7-200 MARY. 54 Care , footSyndrome, 8 [facility], [facility] organic brain [place], [place], NOSHyperlipidemia [address]. Christ NEC/NOS tel:[phone] [place], [address], [place] tel:[phone] 0001 - S Malaise and May-0 [facility] Inc, Primary fatigue NEC 7-200 KEVIN. 54 - Care 8 [facility] [place] [facility], [place], [place] [address]. 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 54 - Care attention deficit 7 [address] , Tanozoraida Fonseca w/o hyperactivity [facility], [place], [place] [address]. [place], tel:[phone], [place] [address] tel:[phone] - S Dermatophytosis, MARIA D S Inc, Primary foot 6-200 MARYA. 42 W 33-57 Care 7 [facility], [facility], [place], [place], [place] [address]. [place], tel:[phone], [place] [address] tel:[phone] - S Disorder, Apr-2 [email or web address], Primary attention deficit 4-200 KEVIN. 54 33-57 Care w/hyperactivitySyn 7 [facility], [facility] drome, organic [facility], Street, brain [place], [place] [address]. [place], tel:[phone], [place] [address] tel:[phone] - [facility] Oct-2 [email or web address], Primary 4-200 KEVIN. 54 33-57 Care 6 [facility], [place], [place], [place] [address]. [place], tel:[phone], [place] [address] tel:[phone] - S Malaise and Mar- [email or web address], Primary fatigue NEC 0-200 KEVIN. 54 33-57 Care 6 [facility], [place], [place], [place] [address]. [place], tel:[phone], [place] [address] tel:[phone] - [facility] Oct-2 [employer], Primary 1-200 NURSE. . -57 Care [address] [place], [address], [place] tel:[phone] - S Aug-1 [employer], Primary 9-200 KEVIN. 54 33-57 Care 5 [facility], [place], [place], [place] [address]. [place], tel:[phone], [place] [address] tel:[phone] - S Examination, [employer], Primary routine 5-200 KEVIN. 54 33-57 Care medicalDisorder, 5 [facility], [facility] attention deficit [facility], Street, w/o [place], [place] [facility] [address]. [place], [facility] [phone], [facility] [address] tel:[phone] unspecified Family History Family Member Diagnosis Age At Onset Unknown Immunizations Vaccine Date Status Comments Influenza, injectable, administered Source: New Immunization quadrivalent, preservative Record free, split virus Influenza, injectable, administered Source: New Immunization quadrivalent, preservative Record free, split virus Td (adult) preservative free administered Source: New Immunization Record Influenza, injectable, administered Source: Other Provider quadrivalent, preservative free, split virus 9233-2316 Influenza, injectable, administered Note: fluvirin 0.5 ml lot # quadrivalent, preservative [id number] exp 04/08/2017 ; free, split virus 3 years or Source: Other Provider older, Fluarix Quad [id number] Fluarix Quadrivalent Syringe administered Source: Source Unspecified [...] Insurance type Covered libertarian ID Authorization(s) Medicare [id number] Medicare [id number] Medicaid [id number] Medicare A [id number] Medicare B [id number] Medicaid [facility] [id number] Medicare A [id number] Medicare B [id number] Medicaid [facility] [id number] Social History Type Description Quantity Date Captured Comments Unknown Vital Signs Date / Height Weight [...] Referred To: ordered BENNY FAY MD [address] [place], [address] [phone] Ordered: Referrals: Speech Therapy. BENNY FAY MD. Evaluate and treat Appointment date/timeframe: 02/20/2016 Referral Ordered: ordered . Otolaryngology. Consult and treat. Appointment date/timeframe: 3 Months Referral Referred To: ordered JONAS VANN [address] [place], [address] [phone] Ordered: JONAS VANN. Urology. Consult and treat. Appointment date/timeframe: 05/30/2013 Referral Referred To: ordered WILDER STEPH[facility] [address] [place], [address] [phone] Ordered: WILDER STEPHENS. Dermatology. Consult and treat. 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 Lives 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 Blood work 03/16/18Colonoscopy- not indicatedFlu vaccine- given [...]
--- OUTSIDE RECORDS SUMMARY | 2020-01-16 13:51 | XMS REPORT | Continuity of Care Document ---
:1980 Author Organization 0001 - S [facility] Address [address] [place] [address] Phone Care Team Providers Name Role Phone BREE OLIVER NP Unavailable Unavailable Allergies, Adverse Reactions, Alerts Substance Reaction Status Substance Type Unknown WARNIN allergy(ies) could not be collected because the type is not supported. [facility] further details. Medications Medication Instructions [...] po - Active mg/5 mL oral liquid [id number] prn cough or congestion. 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 54 33-57 Care 0 [place], [place], [place], [facility]. [place] tel:[phone] [facility] [address], tel:[phone] 2019 [facility] Hyponatremia [place], Primary 8-202 KEVIN. 54 33-57 Care 0 [facility], [place], [place], [place] [address]. [place], tel:[phone], [address] tel:[phone] 2019 [facility] Grinbath, Primary 0-201 KEVIN. 54 33-57 Care 9 [facility], [place], [place], [place] [address]. [place], tel:[phone], [address] tel:[phone] 0001 - [facility] Nov-1 PATEL [facility] Inc, Primary 2-201 KEVIN. 54 33-[address] [place] [address], [place], [place] [address]. 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 54 33-[address] [place] [address], [place], [place] [address]. [place], tel:[phone], [address] tel:+ [phone] 0001 - [facility] Encounter for Oct-1 RISING [facility] Inc, Primary immunization 4-201 BREE. 54 33-[address] [place] [address], [place], [address]. [place] tel:[phone] [facility] [address], [place] tel:+ [phone] 0001 - [facility] Hyponatremia Sep-3 [facility] UHS Inc, Primary 0-201 BREE. 54 33-[address], [place], [address]. [place] tel:[phone] [place], [address], [place] tel:[phone] 0001 - [facility] Sep-2 PATEL [facility] Inc, Primary 4-201 KEVIN. 54 33-[address] [place] [address], [place], [place] [address]. [place], tel:[phone], [place] [address] tel:[phone] 0001 - [facility] Encounter for Sep-1 RISING [facility] Inc, Primary Medicare annual 9-201 BREE. 54 33-57 Care wellness [address] [place] [address], Street, nail bed of finger [address]. [place] of right tel:[phone] [place], handHyponatremiaEs [address], [place] sential (primary) tel:[phone] hypertensionBMI [id number] 33.0-33.9,adultMod erate mental retardation 0001 - [facility] Sep-1 ROSSY [employer]By[employer] Inc, Primary 3-201 [place]. 33-57 Care [address] [place] [address], Street, [address]. [place] tel:[phone] [place], [address], [place] tel:[phone] 0001 - [facility] Aug-0 ROSSY [employer] Inc, Primary 9-201 [place]. 33-57 Care [address] [place] [address], Street, [address]. [place] tel:[phone] [place], [address], [place] tel:[phone] 0001 - S May-2 [employer] Inc, Primary 4-201 KEVIN. 54 33-[address] [place] [address], [place], [place] [address]. [place], tel:[phone], [place] [address] tel:[phone] 0001 - [facility] Dermatitis May-2 Cardize[employer] Inc, Primary 0-201 [place]. 42 33-57 Care 9 [place], [place] [address]. [place], tel:[phone], [place] [address] tel:[phone] 0001 - S Vomiting in Apr-1 [employer] Inc, Primary adultRash 5-201 [place]. 42 33-57 Care 9 [place], [place] [address]. [place], tel:[phone], [place] [address] tel:[phone] 0001 - S Non-intractable Apr-0 [employer] Inc, Primary vomiting without 2-201 KEVIN. 54 33-57 Care nausea, [address] [place] [address] unspecified [facility], Street, vomiting type [place], [place] [address]. [place], tel:[phone], [place] [address] tel:[phone] 0001 - S Moderate mental Oct-3 [employer] Inc, Primary retardationPsychog 1-201 KEVIN. 54 33-57 Care enic 8 [facility] polydipsiaBody [facility], Street, mass index (BMI) [place], [place] 32.0-32.9, adult [address]. [place], tel:[phone], [place] [address] tel:[phone] 0001 - [facility] Fall Risk Sep-1 [facility] Inc, Primary AssessmentEncounte 2-201 BREE. 54 33-57 Care r for Medicare 8 [facility], [facility] annual wellness [place], [place], [place], [place] [address]. [place] immunizationBody tel:[phone] [place], mass index (BMI) [address], [place] 32.0-32.9, adult tel:[phone] 0001 - [facility] Syncope, Cinet[employer] S Inc, Primary unspecified 6-201 KEVIN. 54 33-57 Care syncope typeBenign 8 [facility] hypertension [facility], [place], [place] [address]. [place], tel:[phone], [place] [address] tel:[phone] 0001 - S Preoperative Kwadwo- [employer] S Inc, Primary general physical 0-201 KEVIN. 54 33-57 Care examinationDental 8 [facility] caries [facility], [place], [place] [address]. [place], tel:[phone], [place] [address] tel:[phone] 0001 - S Aug- Cinetraffic S Inc, Primary 9-201 KEVIN. 54 33-57 Care 7 [facility], [place], [place] [address]. [place], tel:[phone], [place] [address] tel:[phone] 0001 - S Jun-2 Learndot S Inc, Primary 2-201 BREE. 54 33-57 Care 7 [place], [place], [place], [address]. [place] tel:[phone] [place], [address], [place] tel:[phone] 0001 - S Encounter for [employer] Inc, Primary Medicare annual 8-201 KEVIN. 54 33-57 Care wellness 7 [facility] examModerate [facility], [place], [place], [facility] [address]. [place], mass index (BMI) tel:[phone], [place] 35.0-35.9, adult [address] tel:[phone] 0001 - S Mt-2 [facility] Inc, Primary 0-201 BREE. 54 33-57 Care 7 [place], [place], [place], [address]. [place] tel:[phone] [place], [address], [place] tel:[phone] 0001 - S Naun-1 [facility], Primary 4-201 SIENA. 260 33-57 Care [address] [place] [address], [facility], [place], [place] [address]. [place], tel:[phone], [place] [address] tel:[phone] 0001 - S Dysphagia, Naun-0 [facility] Inc, Primary unspecified type 5-201 SIENA. 260 33-57 Care [address] [place] [address], [facility], [place], [place] [address]. [place], tel:[phone], [place] [address] tel:[phone] 0001 - S Anemia, Jan- [employer] Inc, Primary unspecified 3-201 KEVIN. 54 33-57 Care typeHyperthyroidis 7 [facility], [place], [place], [place] [address]. [place], tel:[phone], [place] [address] tel:[phone] 0001 - S Nov-2 [employer], Primary 1-201 KEVIN. 54 33-57 Care 6 [facility], [place], [place] [address]. [place], tel:[phone], [place] [address] tel:[phone] 0001 - S Oct- Learndot S Inc, Primary 4-201 BREE. 54 33-57 Care 6 [facility], [place], [place], [place], [address]. [place] tel:[phone] [place], [facility] [address], [place] tel:[phone] 0001 - [facility] Essential Sep-2 [employer] Inc, Primary (primary) KEVIN. 54 33-57 Care hypertensionHypona 6 [facility], [facility] tremia [facility], [place], [place], [place] [address]. [place], tel:[phone], [place] [address] tel:[phone] 0001 - [facility] Self induced Aug-2 [employer], Primary vomiting KEVIN. 54 33-57 Care 6 [facility], [facility], [place], [place], [place] [address]. [place], tel:[phone], [address] tel:[phone] 0001 - [facility] Mt-0 [employer], Primary KEVIN. 54 33-57 Care 6 [facility], [facility], [place], [place], [place] [address]. [place], tel:[phone], [place] [address] tel:[phone] 0001 - [facility] Hypertension, Naun-2 [employer] Inc, Primary benignSuppurative KEVIN. 54 33-57 Care otitis media of 6 [facility], [place] both ears, [facility], [place], unspecified [place], [place], [place] chronicity [address]. [place], tel:[phone], [place] [address] tel:[phone] 0001 - [facility] Hypertension, Naun-0 [employer] Inc, Primary benignAcute KEVIN. 54 33-57 Care suppurative otitis 6 [facility] media of both ears [facility], [place], without [place], [place] spontaneous [address]. [place], rupture of tel:[phone], [place] tympanic [address] tel:[phone], [phone] recurrence not specified 0001 - [facility] Benign May- [employer] Inc, Primary hypertensionRashMi KEVIN. 54 33-57 Care ld dehydration [address] , [facility], [place], [place] [address]. [place], tel:[phone], [place] [address] tel:[phone] 0001 - S Benign March- PATEL S Inc, Primary hypertension 3 KEVNI. 54 33-57 Care 6 [facility], [facility], [place], [place] [address]. [place], tel:[phone], [place] [address] tel:[phone] 0001 - S Dysphagia, Apr-0 PATEL S Inc, Primary unspecified type KEVIN. 54 33-57 Care 6 [facility], [facility], [place], [place] [address]. [place], tel:[phone], [place] [address] tel:[phone] 0001 - S Encounter for Jan-2 JORGE S Inc, Primary Medicare annual KEVIN. 54 33-57 Care wellness 6 [facility], [facility] examBenign [facility], [place], hypertensionDyspha [place], [place] shila, unspecified [address]. [place], typeMental tel:[phone], [place] retardation [address] tel:[phone] 0001 - S Pre procedural Sep- PATEL [employer] Inc, Primary general physical KEVIN. 54 33-57 Care examDental [address] , [facility] painHypertensionMo [facility], Street, derate mental [place], [place] [address]. [place], tel:[phone], [place] [address] tel:[phone] 0001 - S Gynecomastia, male Jun- PATEL [employer] Inc, Primary KEVIN. 54 33-57 Care [address] , [facility], [place], [place] [address]. [place], tel:[phone], [place] [address] tel:[phone] 0001 - S Moderate mental Feb- GLOSENGER S Inc, Primary retardationRoutine 8-201 LUCIANA. 59 33-57 Care medical exam 5 [facility], [facility], [place], [place] [address]. [place], tel:[phone], [place] [address] tel:[phone] 0001 - FoodByNetS Kwadwo- GLOSENMashONS Inc, Primary 5-201 LUCIANA. 59 33-57 Care 5 [facility], [facility], [place], [place] [address]. [place], tel:[phone], [place] [address] tel:[phone] 0001 - [facility] Soft tissue Nov-2 ROVOP Inc, Primary swelling 4-201 LUCIANA. 59 33-57 Care 4 [facility], [facility], [place], [place] [address]. [place], tel:[phone], [place] [address] tel:[phone] 0001 - [facility] AnemiaHyponatremia Oct- Cirrus WorksCTAudioCaseFiles, Primary 7-201 LILLIAN. 33-57 Care 4 [address] [facility] mLED PkRooftop Mediay [place], [place] [address]. [place], tel:[phone], [place] [address] tel:[phone] 0001 - [facility] HyponatremiaAnemia Oct-1 [employer], Primary Influenza Vaccine 6-201 LILLIAN. -57 Care [address] [place], [place], [place] [address]. [place], tel:[phone], [place] [address] tel:[phone] 0001 - [facility] CellulitisCellulit Aug-0 [employer], Primary is/abscess, digit 5-201 LILLIAN. 33-57 Care NOS 4 [address] [place], [place] [address]. [place], tel:[phone], [place] [address] tel:[phone] 0001 - S HyponatremiaPsycho May-2 GLOIntarcia TherapeuticsS Inc, Primary genic 8-201 LUCIANA. 59 33-57 Care polydipsiaHypercho [address] , [facility] lesterolemia, pure [facility], [place], [place] [address]. [place], tel:[phone], [place] [address] tel:[phone] 0001 - S Cellulitis May- SCHECTER [employer] Inc, Primary 2-201 LILLIAN. 33-57 Care 4 [address] [facility] [address], [place], [place] [address]. [place], tel:[phone], [place] [address] tel:[phone] 0001 - S Dermatophytosis, May-0 [employer] Inc, Primary foot 2-201 KEVIN. 54 33-57 Care 4 [facility], [facility], [place], [place] [address]. [place], tel:[phone], [place] [address] tel:[phone] 0001 - S Naun- [employer] Inc, Primary 4-201 KEVIN. 54 33-57 Care 4 [facility], [facility], [place], [place] [address]. [place], tel:[phone], [place] [address] tel:[phone] 0001 - S Stomatitis March- [employer] Inc, Primary 9- KEVIN. 54 33-57 Care 4 [facility], [facility], [place], [place] [address]. [place], tel:[phone], [place] [address] tel:[phone] 0001 - S Tachycardia March-0 [employer] Inc, Primary 9-201 KEVIN. 54 33-57 Care 4 [facility], [facility], [place], [place] [address]. [place], tel:[phone], [place] [address] tel:[phone] 0001 - S Examination, TrampolineS Inc, Primary routine 2-201 LUCIANA. 59 33-57 Care medicalHyperlipide 4 [facility], [facility] NEC/NOSObesity [facility], [place], NOSHyponatremiaHyp [place], [place] ertensionRoutine [address]. [place], Medical Exam tel:[phone], [place] [address] tel:[phone] 0001 - S Foot pain, left Oct- [employer] Inc, Primary 2 KEVIN. 54 33-57 Care 3 [facility], [facility], [place], [place] [address]. [place], tel:[phone], [place] [address] tel:[phone] 0001 - S Psychogenic [employer], Primary polydipsiaHyponatr KEVIN. 54 33-57 Care emia 3 [facility], [facility], [place], [place], [place] [address]. [place], tel:[phone], [place] [address] tel:[phone] 0001 - S HyponatremiaOtalgi [employer] Inc, Primary a of left ear KEVIN. 54 33-57 Care 3 [facility], [facility], [place], [place], [place] [address]. [place], tel:[phone], [place] [address] tel:[phone] 0001 - S Incontinence, [employer], Primary urinary NOS KEVIN. 54 33-[address] [place] [address], [facility], [place], [place], [place] [address]. [place], tel:[phone], [place] [address] tel:[phone] 0001 - S Enuresis Apr- [employer], Primary KEVIN. 54 33-57 Care 3 [facility], [facility], [place], [place], [place] [address]. [place], tel:[phone], [place] [address] tel:[phone] 0001 - S Routine Medical [employer], Primary ExamADHD 1-201 KEVIN. 54 33-57 Care (attention deficit [address], [facility] hyperactivity [facility], Street, disorder)Moderate [place], [place] mental [address]. [place], retardationAcneAst tel:[phone], igmatismHypospadia [address] tel:+[phone] [facility] Medical [phone] ExamRoutine Medical ExamDisorder, attention deficit w/hyperactivityAcn e NEC 0001 - [facility] Sinusitis, acute GLOSENGER Referring S Inc, Primary frontalSinusitis, 4-201 LUCIANA. 59 Provider: 33-57 Care acute frontal [address], LUCIANA [facility], GLOSENGER, [place], [place], [address] [place] [address]. [facility], [place], tel:[phone] [place], [address], [place] [address] [place], [address]. tel:+60 tel:[phone] 0001 - S Nov- GLOSENGER S Inc, Primary 4-201 LUCIANA. 59 33-[address], [facility], [place], [place], [place] [address]. [place], tel:[phone], [place] [address] tel:[phone] 0001 - [facility] Routine Medical Sep- GLOSENGER S Inc, Primary ExamRoutine 2-201 LUCIANA. 59 33-57 Care Medical [address] , [facility] ExamRoutine [facility], [place], Medical Exam [place], [place] [address]. [place], tel:[phone], [place] [address] tel:[phone] 0001 - S Fatigue / Malaise Apr-0 GLOSENGER S Inc, Primary 3-201 LUCIANA. 59 33-[address], [facility], [place], [place] [address]. [place], tel:[phone], [place] [address] tel:[phone] 0001 - [facility] Routine Medical Kwadwo-0 GLOSENGER S Inc, Primary ExamURI (upper 9-201 LUCIANA. 59 33-57 Care respiratory [address], [place] infection)Routine [facility], [place], [place], [place] ExamRoutine [address]. [place], Medical ExamUpper tel:[phone], Respiratory [address] tel:+60 Infection, Acute [phone] 0001 - [facility] Cerumen Dec-1 GLOSENGER S Inc, Primary impactionImpacted 2-201 LUCIANA. 59 33-57 Care cerumen [address] , [facility], [place], [place] [address]. [place], tel:[phone], [place] [address] tel:[phone] 0001 - [facility] SinusitisSinusitis Nov-0 GLOSENGER Referring S Inc, Primary , chronic NOS 7-201 LUCIANA. 59 Provider: 33-[address], [place]UCIANA [facility], GLOSENGER, [place], [place], [address] Crhist [address]. [facility], [place], [place], tel:[phone] [place], [address], [place] [address] [place], [address]. tel:+60 tel:[phone] 0001 - [facility] Cellulitis/abscess Naun-2 GLOSENGER S Inc, Primary , digit NOSSkin 0-201 LUCIANA. 59 33-57 Care irritationCellulit 1 Main [facility] is/abscess, digit [facility], [place], NOSDisorder, skin [place], [place] NOS [address]. [place], tel:[phone], [place] [address] tel:[phone] 0001 [facility] ParonychiaCellulit Naun-1 GLOSENGER S Inc, Primary is/abscess, digit 3-201 LUCIANA. 59 33-57 Care NOS [address], [facility], [place], [place] [address]. [place], tel:[phone], [place] [address] tel:[phone] 0001 - [facility] Routine Medical Mar-1 GLOSENGER S Inc, Primary ExamRoutine 1-201 LUCIANA. 59 33-57 Care Medical Exam [address] , [facility], [place], [place] [address]. [place], tel:[phone], [place] [address] tel:[phone] 0001 - [facility] Routine Medical GLOSENGER S Inc, Primary Exam 6-201 LUCIANA. 59 33-57 Care 1 [facility], [place], [place], [place] [address]. [place], tel:[phone], [place] [address] tel:[phone] 0001 - [facility] Routine Medical [facility], Primary Exam 7-201 LUCIANA. 59 33-57 Care 1 [facility], [place], [place] [address]. [place], tel:[phone], [place] [address] tel:[phone] 2019 - [facility] Cellulitis/abscess Dec-2 [facility], Primary finger, 1-201 LUCIANA. 59 33-57 Care onychia/paronychia 0 [facility], [place], [place], [place] [address]. [place], tel:[phone], [place] [address] tel:[phone] 2019 - [facility] Oct- [facility], Primary 9-201 NURSE. . 33-57 Care 0 [place], [address], tel:[phone] 2019 - [facility] Hyperlipidemia [facility] Inc, Primary NEC/NOSDermatophyt 3-201 LUCIANA. 59 33-57 Care osis, foot 0 [facility], [place], [place], [place] [address]. [place], tel:[phone], [place] [address] tel:[phone] 2019 - [facility] Dysfunction, Nov-0 SKIFF COLTON. [facility] Inc, Primary Eustachian 3-200 [facility] PC 119 33-57 Care tubeDermatophytosi 9 [facility], site NOS [place], [place] [address]. [place], tel:[phone], [place] [address] tel:[phone] 0001 - S Hypercholesterolem PATEL S Inc, Primary ia, pure 9-200 KEVIN. 54 - Care 9 [facility], [place], [place], [place] [address]. [place], tel:[phone], [place] [address] tel:[phone] 0001 - S Dermatitis NOS [facility] Inc, Primary 1-200 KEVIN. 54 - Care [address] [place] [address], [place], [place] [address]. [place], tel:[phone], [place] [address] tel:[phone] 0001 - S Hyperlipidemia MARIA D S Inc, Primary NEC/NOSObesity 5-200 MARYA. 42 W Care NOSSyndrome, [address] [place] [address] organic brain [facility], [place], NOSDisorderTrumann, [place], [place] attention deficit [address]. [place], w/o tel:[phone], hyperactivityAcne [address] tel:+160 NECRetardation, [phone] mental, moderate 0001 - S Dermatophytosis, PATEL S Inc, Primary site NOS 7-200 KEVIN. 54 - Care [address] [place] [address], [place], [place] [address]. 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 54 Provider: -57 Care sites, acute NEC 8 [facility], [place], [place], [place], [place], [address]. 54 [facility] tel:[phone] , [place], [place], [address] [place] [address], [facility], [address]. tel:+60 tel:[phone] 0001 - S Hyperlipidemia Oct-2 MARIA D S Inc, Primary NEC/NOSDisorder, 7-200 MARYA. 42 W Care attention deficit [address] , [place] Fonseca w/o [facility], Street, hyperactivityObesi [place], [place], [place] ty NOSRetardation, [address]. [place], mental, moderate tel:[phone], [place] [address] tel:[phone] 0001 - S Herpes zoster, Sep-2 PATEL [facility], Primary uncomplicated 6-200 KEVIN. 54 Provider: Care 8 [facility], [facility], JORGE Eaton, [place], [place], [address] [place] [address]. [facility], [place], tel:[phone] [place], [address], [place] [address] [place], [address]. tel:+60 tel:[phone] 0001 - S Obesity May- WILL S Inc, Primary NOSDermatophytosis 7-200 MARY. 54 Care , footSyndrome, 8 [facility], [facility] organic brain [place], [place], NOSHyperlipidemia [address]. Christ NEC/NOS tel:[phone] [place], [address], [place] tel:[phone] 0001 - S Malaise and May-0 [facility] Inc, Primary fatigue NEC 7-200 KEVIN. 54 - Care 8 [facility], [place], [place] [address]. 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 54 - Care attention deficit [address] , Tanozoraida Fonseca w/o hyperactivity [facility], [place], [place] [address]. [place], tel:[phone], [place] [address] tel:[phone] 0001 - S Dermatophytosis, MARIA D S Inc, Primary foot 6-200 MARYA. 42 W 33-57 Care 7 [facility], [facility], [place], [place] [address]. [place], tel:[phone], [place] [address] tel:[phone] 0001 - S Disorder, Apr-2 C[employer]ffic S Inc, Primary attention deficit 4-200 KEVIN. 54 33-57 Care w/hyperactivitySyn 7 [facility], [facility] [facility] drome, organic [facility], Street, brain [place], [place], [place] [address]. [place], [place], tel:[phone], [place] [address] tel:[phone] - [facility] Oct-2 [employer], Primary 4-200 KEVIN. 54 33-57 Care 6 [facility], [place], [place], [place] [address]. [place], [place], tel:[phone], [place] [address] tel:[phone] - S Malaise and Mar- [employer], Primary fatigue NEC 0-200 KEVIN. 54 33-57 Care 6 [facility], [place], [place], [place] [address]. [place], [place], tel:[phone], [place] [address] tel:[phone] - [facility] Oct-2 [employer], Primary 1-200 NURSE. . -57 Care 5 [place], [address], [place] tel:[phone] - S Aug-1 [employer], Primary 9-200 KEVNI. 54 33-57 Care 5 [facility], [place], [place], [place] [address]. [place], [place], tel:[phone], [place] [address] tel:[phone] - S Examination, [employer], Primary routine 5-200 KEVIN. 54 33-57 Care medicalDisorder, 5 [facility], [facility] attention deficit [facility], Street, w/o [place], [place], [place] [facility] [address]. [place], [place], [employer] [phone], [facility] [address] tel:[phone] unspecified Family History Family Member Diagnosis Age At Onset Unknown Immunizations Vaccine Date Status Comments Influenza, injectable, administered Source: New Immunization quadrivalent, preservative Record free, split virus Influenza, injectable, administered Source: New Immunization quadrivalent, preservative Record free, split virus Td (adult) preservative free administered Source: New Immunization Record Influenza, injectable, administered Source: Other Provider quadrivalent, preservative free, split virus 0735-6542 Influenza, injectable, administered Note: fluvirin 0.5 ml lot # quadrivalent, preservative [id number] exp 04/08/2017 ; free, split virus 3 years or Source: Other Provider older, Fluarix Quad [id number] Fluarix Quadrivalent Syringe administered Source: Source Unspecified [...] type Covered alliance party ID Authorization(s) Medicare [id number] Medicare [id number] Medicaid [id number] Medicare A [id number] Medicare B [id number] Medicaid [facility] [id number] Medicare A [id number] Medicare B [id number] Medicaid [facility] [id number] Social History Type Description Quantity Date Captured [...] Referred To: ordered BENNY FAY MD [address] [place], [address] [phone] Ordered: Referrals: Speech Therapy. BENNY FAY MD. Evaluate and treat Appointment date/timeframe: 02/20/2016 Referral Ordered: ordered . Otolaryngology. Consult and treat. Appointment date/timeframe: 3 Months Referral Referred To: ordered JONAS VANN [address] [place], [address] [phone] Ordered: JONAS VANN. Urology. Consult and treat. Appointment date/timeframe: 05/30/2013 Referral Referred To: ordered WILDER STEPHENS [facility] [address] [place], [address] [phone] Ordered: WILDER STEPHENS. Dermatology. Consult and treat. Appointment date/timeframe: 1 Month Referral Ordered: ordered . Dermatology. Consult and treat. 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
== END 2020-01-16 13:49 | disposition home or self-care (01) ==
LOC: ED 12:40
DX: J10.1 Influenza due to other identified influenza virus with other respiratory manifestations (principal); I10 Essential (primary) hypertension; K21.9 Gastro-esophageal reflux disease without esophagitis; F90.9 Attention-deficit hyperactivity disorder, unspecified type; F41.8 Other specified anxiety disorders; F31.9 Bipolar disorder, unspecified; Z79.899 Other long term (current) drug therapy
CPT/HCPCS: 71046; 99282

== ENCOUNTER 2023-04-28 22:04 | Inpatient (IN) ==
[2023-04-28 23:22] LABS: ABS Basophils 0.1 10^3/uL (0.0-0.1); ABS Eosinophils 0.3 10^3/uL (0.0-0.5); ABS Lymphocytes 2.5 10^3/uL (1.0-4.8); ABS Nucleated RBC 0.02 10^3/ul; Eosinophil % 3.2 %; Hematocrit 34.3 % (38-53); Hemoglobin 12.2 g/dL (13.2-16.3); Lymphocyte % 22.8 %; Mean Corpuscular Hemoglobin 28.9 pg (27-33); Mean Corpuscular Hgb Conc 35.5 g/dL (31-36); Mean Corpuscular Volume 81.6 fL (80-97); Mean Platelet Volume 6.6 fL (7.5-11.2); Nucleated Red Blood Cells % 0.2 /100 WBC (0.0-0.4); Platelet Count 295 10^3/uL (150-450); Red Blood Count 4.21 10^6/uL (4.06-5.63); Red Cell Distribution Width 12.8 % (12-17)
[2023-04-28 23:38] LABS: Albumin 4.3 g/dL (3.2-5.2); Albumin/Globulin Ratio 1.5 (1-3); Calcium 8.8 mg/dL (8.6-10.3); Creatinine, Serum 0.51 mg/dL (0.67-1.17); Globulin 2.8 g/dL (2-4); Magnesium 1.6 mg/dL (1.9-2.7); Total Bilirubin 0.5 mg/dL (0.2-1.0); Total Protein 7.1 g/dL (6.4-8.9); eGFR CKD-EPI 130.6 (>60)
[2023-04-28 23:44] LABS: Potassium 3.8 mmol/L (3.5-5.0)
[2023-04-29 00:33] LABS: Urine Chloride Concentration < 22 mmol/L; Urine Sodium Concentration < 18 mmol/L
[2023-04-29 00:45] LABS: Urine Appearance Clear; Urine Bilirubin Negative (Negative); Urine Blood Negative (Negative); Urine Color Colorless; Urine Glucose Negative (Negative); Urine Ketones Negative (Negative); Urine Nitrite Negative (Negative); Urine Protein Negative (Negative); Urine Specific Gravity 1.001 (1.002-1.030); Urine Urobilinogen Negative (Negative)
[2023-04-29] MEDS ORDERED: Sodium Chloride 3% HYPERTONIC 210 ML IV ONE (01:00)
[2023-04-29 01:51] LABS: Urine Osmo < 100 mOsm/kg (150-1150)
[2023-04-29] MEDS ORDERED: SODIUM CHLORIDE 3% IV ONE ×2 (04:59→15:30)
[2023-04-29] MEDS ORDERED: HYPERTONIC IV ONE ×2 (04:59→15:30)
[2023-04-29 05:44] LABS: Calcium 9.2 mg/dL (8.6-10.3); Creatinine, Serum 0.56 mg/dL (0.67-1.17)
[2023-04-29] MEDS: Fluticasone NASAL SPRAY 50MCG 16 gm SPRAY BTL BOTH NARES SCH (08:12)
[2023-04-29] MEDS: Haloperidol LIQ ORALSYR 2 MG/ML PO SCH (08:12)
[2023-04-29] MEDS ORDERED: D5W 500 ml BAG 500 ML IV ONE (08:15)
[2023-04-29 08:24] LABS: Calcium 9.3 mg/dL (8.6-10.3); Creatinine, Serum 0.57 mg/dL (0.67-1.17); Potassium 3.9 mmol/L (3.5-5.0); eGFR CKD-EPI 126.3 (>60)
[2023-04-29] MEDS ORDERED: Desmopressin Acetate 4 MCG/ML 1 ML SDV IV ONE (09:00)
[2023-04-29] MEDS: Enoxaparin 40 MG/0.4 ML SYR SUBCUT SCH (09:30)
[2023-04-29 11:21] LABS: Calcium 8.8 mg/dL (8.6-10.3); Creatinine, Serum 0.54 mg/dL (0.67-1.17); Potassium 3.7 mmol/L (3.5-5.0); eGFR CKD-EPI 128.4 (>60)
[2023-04-29] MEDS ORDERED: D5W 1000 ml BAG 1,000 ML IV SCH (12:00)
[2023-04-29 14:20] LABS: Creatinine, Serum 0.53 mg/dL (0.67-1.17); Potassium 3.1 mmol/L (3.5-5.0); eGFR CKD-EPI 129.1 (>60)
[2023-04-29] MEDS: Potassium Chlor 20 meq TAB.ER PO SCH ×2 (15:00→21:59)
[2023-04-29 17:28] LABS: Calcium 8.7 mg/dL (8.6-10.3); Creatinine, Serum 0.46 mg/dL (0.67-1.17); Potassium 3.5 mmol/L (3.5-5.0); eGFR CKD-EPI 134.8 (>60)
[2023-04-29 20:56] LABS: Calcium 9.1 mg/dL (8.6-10.3); Creatinine, Serum 0.48 mg/dL (0.67-1.17); Potassium 3.5 mmol/L (3.5-5.0)
[2023-04-29] MEDS ORDERED: D5W 1000 ml BAG 500 ML IV ONE (22:00)
[2023-04-30 01:16] LABS: Potassium 3.7 mmol/L (3.5-5.0)
[2023-04-30 01:22] LABS: Creatinine, Serum 0.46 mg/dL (0.67-1.17); eGFR CKD-EPI 134.8 (>60)
[2023-04-30 05:04] LABS: ABS Basophils 0.1 10^3/uL (0.0-0.1); ABS Eosinophils 0.2 10^3/uL (0.0-0.5); ABS Lymphocytes 1.7 10^3/uL (1.0-4.8); ABS Monocytes 0.8 10^3/uL (0.0-1.1); ABS Neutrophils 4.2 10^3/uL (1.5-7.6); ABS Nucleated RBC 0.01 10^3/ul; Eosinophil % 2.4 %; Hematocrit 33.9 % (38-53); Hemoglobin 12.2 g/dL (13.2-16.3); Mean Corpuscular Hemoglobin 28.9 pg (27-33); Mean Corpuscular Volume 80.2 fL (80-97); Mean Platelet Volume 6.8 fL (7.5-11.2); Nucleated Red Blood Cells % 0.1 /100 WBC (0.0-0.4); Platelet Count 289 10^3/uL (150-450); Red Blood Count 4.23 10^6/uL (4.06-5.63); White Blood Count 6.9 10^3/uL (3.6-10.2)
[2023-04-30 05:20] LABS: Albumin 4.4 g/dL (3.2-5.2); Albumin/Globulin Ratio 1.6 (1-3); Calcium 9.2 mg/dL (8.6-10.3); Creatinine, Serum 0.5 mg/dL (0.67-1.17); Direct Bilirubin 0.1 mg/dL (0.03-0.18); Globulin 2.8 g/dL (2-4); Indirect Bilirubin 0.5 mg/dL (0.3-1.0); Potassium 3.6 mmol/L (3.5-5.0); Total Bilirubin 0.6 mg/dL (0.2-1.0); Total Protein 7.2 g/dL (6.4-8.9); eGFR CKD-EPI 131.4 (>60)
[2023-04-30] MEDS: Enoxaparin 40 MG/0.4 ML SYR SUBCUT SCH (07:41)
[2023-04-30] MEDS: Potassium Chlor 20 meq TAB.ER PO SCH (07:41)
[2023-04-30] MEDS: Fluticasone NASAL SPRAY 50MCG 16 gm SPRAY BTL BOTH NARES SCH (07:42)
[2023-04-30 08:43] LABS: Creatinine, Serum 0.51 mg/dL (0.67-1.17); Potassium 3.7 mmol/L (3.5-5.0); eGFR CKD-EPI 130.6 (>60)
[2023-04-30] MEDS: Haloperidol LIQ ORALSYR 2 MG/ML PO SCH (10:28)
[2023-04-30 13:00] LABS: Creatinine, Serum 0.54 mg/dL (0.67-1.17); Potassium 3.9 mmol/L (3.5-5.0); eGFR CKD-EPI 128.4 (>60)
[2023-04-30] MEDS ORDERED: D5W 1000 ml BAG 1,000 ML IV ONE (13:09)
[2023-04-30 16:53] LABS: Calcium 9.8 mg/dL (8.6-10.3); Creatinine, Serum 0.55 mg/dL (0.67-1.17); Potassium 3.7 mmol/L (3.5-5.0); eGFR CKD-EPI 127.7 (>60)
[2023-04-30] MEDS ORDERED: D5W 500 ml BAG 500 ML IV ONE ×2 (17:04→21:00)
[2023-04-30] MEDS ORDERED: DESMOPRESSIN ACETATE IVPB ONE (18:00)
[2023-04-30] MEDS ORDERED: NS 0.9% IVPB ONE (18:00)
[2023-04-30 20:49] LABS: Blood Urea Nitrogen 6 mg/dL (6-24); CO2 Carbon Dioxide 26 mmol/L (22-32); Calcium 9.5 mg/dL (8.6-10.3); Chloride 90 mmol/L (101-111); Creatinine, Serum 0.58 mg/dL (0.67-1.17); Glucose 81 mg/dL (70-100); Sodium 124 mmol/L (135-145); eGFR CKD-EPI 125.7 (>60)
[2023-04-30 20:55] LABS: Anion Gap 8 mmol/L (2-16)
[2023-05-01 01:04] LABS: Calcium 8.8 mg/dL (8.6-10.3); Creatinine, Serum 0.51 mg/dL (0.67-1.17); Potassium 3.5 mmol/L (3.5-5.0); eGFR CKD-EPI 130.6 (>60)
[2023-05-01 04:37] LABS: ABS Basophils 0.1 10^3/uL (0.0-0.1); ABS Eosinophils 0.2 10^3/uL (0.0-0.5); ABS Neutrophils 4.8 10^3/uL (1.5-7.6); ABS Nucleated RBC 0.01 10^3/ul; Eosinophil % 3.1 %; Hematocrit 32.2 % (38-53); Hemoglobin 11.7 g/dL (13.2-16.3); Lymphocyte % 25.1 %; Mean Corpuscular Hemoglobin 29.1 pg (27-33); Mean Corpuscular Hgb Conc 36.3 g/dL (31-36); Mean Corpuscular Volume 80.3 fL (80-97); Mean Platelet Volume 6.7 fL (7.5-11.2); Nucleated Red Blood Cells % 0.1 /100 WBC (0.0-0.4); Platelet Count 307 10^3/uL (150-450); Red Blood Count 4.02 10^6/uL (4.06-5.63); Red Cell Distribution Width 12.9 % (12-17); White Blood Count 8.1 10^3/uL (3.6-10.2)
[2023-05-01 04:45] LABS: Albumin 4.2 g/dL (3.2-5.2); Albumin/Globulin Ratio 1.6 (1-3); Creatinine, Serum 0.52 mg/dL (0.67-1.17); Globulin 2.6 g/dL (2-4); Magnesium 1.7 mg/dL (1.9-2.7); Phosphorus 2.8 mg/dL (2.5-5.0); Potassium 3.3 mmol/L (3.5-5.0); Total Bilirubin 0.5 mg/dL (0.2-1.0); Total Protein 6.8 g/dL (6.4-8.9); eGFR CKD-EPI 129.9 (>60)
[2023-05-01] MEDS ORDERED: Magnesium Sulfate 2 gm BAG 2 GM/50 ML BAG IVPB ONE (04:53)
[2023-05-01] MEDS ORDERED: Potassium Chlor 20 meq TAB.ER PO ONE (04:54)
[2023-05-01] MEDS ORDERED: KCL 20 MEQ/100 ML IVPREMIX 20 MEQ/100 ML BAG IV ONE (04:54)
[2023-05-01] MEDS: Potassium Chlor 20 meq TAB.ER PO ONE ×2 (05:41→05:43)
[2023-05-01 06:59] LABS: Osmolality Serum 241 mOsm/kg (275-295)
[2023-05-01] MEDS: Haloperidol LIQ ORALSYR 2 MG/ML PO SCH (08:26)
[2023-05-01] MEDS: Enoxaparin 40 MG/0.4 ML SYR SUBCUT SCH (08:26)
[2023-05-01] MEDS: Fluticasone NASAL SPRAY 50MCG 16 gm SPRAY BTL BOTH NARES SCH (08:26)
[2023-05-01 08:38] LABS: Creatinine, Serum 0.51 mg/dL (0.67-1.17); Potassium 4.1 mmol/L (3.5-5.0); eGFR CKD-EPI 130.6 (>60)
[2023-05-01 13:06] LABS: Calcium 9.6 mg/dL (8.6-10.3); Creatinine, Serum 0.58 mg/dL (0.67-1.17); Potassium 3.9 mmol/L (3.5-5.0); eGFR CKD-EPI 125.7 (>60)
[2023-05-01 19:05] LABS: Calcium 9.8 mg/dL (8.6-10.3); Creatinine, Serum 0.57 mg/dL (0.67-1.17); Potassium 4.1 mmol/L (3.5-5.0); eGFR CKD-EPI 126.3 (>60)
[2023-05-02 01:23] LABS: Calcium 9.3 mg/dL (8.6-10.3); Potassium 4.3 mmol/L (3.5-5.0)
[2023-05-02 01:29] LABS: Creatinine, Serum 0.59 mg/dL (0.67-1.17)
[2023-05-02 04:27] LABS: Hemoglobin 12.4 g/dL (13.2-16.3); Mean Corpuscular Hgb Conc 35.5 g/dL (31-36); Mean Corpuscular Volume 81.7 fL (80-97); Mean Platelet Volume 6.7 fL (7.5-11.2); Platelet Count 330 10^3/uL (150-450); Red Blood Count 4.29 10^6/uL (4.06-5.63); Red Cell Distribution Width 13.6 % (12-17); White Blood Count 5.7 10^3/uL (3.6-10.2)
[2023-05-02 04:52] LABS: Calcium 9.3 mg/dL (8.6-10.3); Creatinine, Serum 0.6 mg/dL (0.67-1.17); Phosphorus 3.9 mg/dL (2.5-5.0); Potassium 4.3 mmol/L (3.5-5.0); eGFR CKD-EPI 124.4 (>60)
[2023-05-02] MEDS: Haloperidol LIQ ORALSYR 2 MG/ML PO SCH (09:23)
[2023-05-02] MEDS: Fluticasone NASAL SPRAY 50MCG 16 gm SPRAY BTL BOTH NARES SCH (09:26)
[2023-05-02] MEDS: Enoxaparin 40 MG/0.4 ML SYR SUBCUT SCH (11:30)
[2023-05-02 14:49] LABS: Calcium 10.1 mg/dL (8.6-10.3); Creatinine, Serum 0.81 mg/dL (0.67-1.17); Potassium 4.6 mmol/L (3.5-5.0); eGFR CKD-EPI 113.6 (>60)
[2023-05-03 03:00] LABS: Calcium 9.6 mg/dL (8.6-10.3); Creatinine, Serum 0.68 mg/dL (0.67-1.17); Potassium 4.5 mmol/L (3.5-5.0); eGFR CKD-EPI 119.8 (>60)
[2023-05-03] MEDS: Haloperidol LIQ ORALSYR 2 MG/ML PO SCH (11:23)
[2023-05-03] MEDS: Fluticasone NASAL SPRAY 50MCG 16 gm SPRAY BTL BOTH NARES SCH (11:24)
[2023-05-03 14:25] LABS: Creatinine, Serum 0.67 mg/dL (0.67-1.17); Potassium 4.3 mmol/L (3.5-5.0); eGFR CKD-EPI 120.3 (>60)
[2023-05-04 06:34] LABS: Potassium 4.2 mmol/L (3.5-5.0)
[2023-05-04 06:35] LABS: Calcium 9.5 mg/dL (8.6-10.3); Creatinine, Serum 0.65 mg/dL (0.67-1.17); eGFR CKD-EPI 121.4 (>60)
[2023-05-04] MEDS: Haloperidol LIQ ORALSYR 2 MG/ML PO SCH (10:15)
[2023-05-04] MEDS: Fluticasone NASAL SPRAY 50MCG 16 gm SPRAY BTL BOTH NARES SCH (10:16)
[2023-05-04] MEDS: Ure-Na 15 GM POWD.PACK PO SCH (10:20)
[2023-05-04] MEDS ORDERED: Iohexol 350 (CONTRAST) 500 ML MDV IV ONE (15:06)
[2023-05-05 06:16] LABS: Calcium 9.6 mg/dL (8.6-10.3); Creatinine, Serum 0.76 mg/dL (0.67-1.17); Potassium 4.3 mmol/L (3.5-5.0); eGFR CKD-EPI 115.8 (>60)
[2023-05-05] MEDS: Haloperidol LIQ ORALSYR 2 MG/ML PO SCH (10:17)
[2023-05-05] MEDS: Ure-Na 15 GM POWD.PACK PO SCH (10:17)
[2023-05-05] MEDS: Fluticasone NASAL SPRAY 50MCG 16 gm SPRAY BTL BOTH NARES SCH (10:20)
[2023-05-05 13:54] VITALS: BP 117/74
== END 2023-05-05 13:38 | disposition home or self-care (01) | DRG 641 ==
LOC: ED 22:04 → SUATTDRO 04-29 03:01 → EDHOLD 04-29 03:01 → ICU 04-29 04:59 → MED 05-02 19:45
PROVIDERS: ADMIT Internal Medicine; ATTEND Internal Medicine